=== PATIENT | female | born 1935 | race Two or more races ===

== ENCOUNTER 2018-02-01 20:40 | Observation (INO) | payer MEDICARE, OTHER ==
[2018-02-01 21:07] LABS: ABSOLUTE BASOPHILS # (AUTO) 0.1 10^3/uL (0.0-0.2); ABSOLUTE EOSINOPHILS # (AUTO) 0.3 10^3/uL (0.0-0.6); ABSOLUTE LYMPHOCYTES (AUTO) 1.4 10^3/uL (0.5-4.7); ABSOLUTE MONOCYTES (AUTO) 0.8 10^3/uL (0.1-1.4); ABSOLUTE NEUT (AUTO) 4.6 10^3/uL (1.7-8.2); BASOPHILS % (AUTO) 0.9 % (0-2); EOSINOPHILS % (AUTO) 3.6 % (0-6); HEMATOCRIT 37.2 % (36.0-47.0); HEMOGLOBIN 12.8 g/dL (12.0-15.5); LYMPHOCYTES % (AUTO) 19.4 % (13-45); MEAN CORPUSCULAR HEMOGLOBIN 31.8 pg (27.0-33.4); MEAN CORPUSCULAR HGB CONC 34.4 g/dL (32.0-36.0); MEAN CORPUSCULAR VOLUME 92 fl (80-97); MONOCYTES % (AUTO) 11.1 % (3-13); PLATELET COUNT 256 10^3/uL (150-450); RED BLOOD COUNT 4.03 10^6/uL (3.72-5.28); RED CELL DISTRIBUTION WIDTH 14.5 % (11.5-14.0); TOTAL CELLS COUNTED % (AUTO) 100 %; WHITE BLOOD COUNT 7.1 10^3/uL (4.0-10.5)
[2018-02-01 21:12] LABS: INTERNATIONAL RATION (INR) 0.98; PROTHROMBIN TIME 13.5 SEC (11.4-15.4)
--- NOTE | 2018-02-01 21:18 | RADIOLOGY REPORT (SQ) ---
EXAM DESCRIPTION: CHEST 2 VIEWS COMPLETED DATE/TIME: 02/01/2018 9:11 pm REASON FOR STUDY: ams COMPARISON: None. EXAM PARAMETERS: NUMBER OF VIEWS: two views TECHNIQUE: Digital Frontal and Lateral radiographic views of the chest acquired. RADIATION DOSE: NA LIMITATIONS: none FINDINGS: LUNGS AND PLEURA: No opacities, masses or pneumothorax. No pleural effusion. MEDIASTINUM AND HILAR STRUCTURES: No masses or contour abnormalities. HEART AND VASCULAR STRUCTURES: Heart normal size. No evidence for failure. BONES: No acute findings. HARDWARE: None in the chest. OTHER: No other significant finding. IMPRESSION: NO ACUTE RADIOGRAPHIC FINDING IN THE CHEST. TECHNICAL DOCUMENTATION: JOB ID: [id number] [employer]- All Rights Reserved Reading location - IP/workstation name: [email or web address]
--- NOTE | 2018-02-01 21:20 | RADIOLOGY REPORT (SQ) ---
EXAM DESCRIPTION: CT HEAD WITHOUT COMPLETED DATE/TIME: 02/01/2018 9:12 pm REASON FOR STUDY: ams COMPARISON: None. TECHNIQUE: Axial images acquired through the brain without intravenous contrast. Images reviewed wi th bone, brain and subdural windows. Additional sagittal and coronal reconstructions were generated. Images stored on PACS. All CT scanners at this facility use dose modulation, iterative reconstruction, and/or weight based d osing when appropriate to reduce radiation dose to as low as reasonably achievable (ALARA). [facility]: Dose Right [facility]: CareDose [facility]: Dose Right [facility]: Teradose 4D [facility]: Artwardly RADIATION DOSE: CT Rad equipment meets quality standard of care and radiation dose reduction techniq ues were employed. CTDIvol: 53.2 mGy. DLP: 884 mGy-cm. mGy. LIMITATIONS: None. FINDINGS: VENTRICLES: Normal size and contour. CEREBRUM: No masses. No hemorrhage. No midline shift. No evidence for acute infarction. Areas of l ow density in the white matter most likely chronic small vessel ischemic changes. CEREBELLUM: No masses. No hemorrhage. No alteration of density. No evidence for acute infarction. EXTRAAXIAL SPACES: No fluid collections. No masses. ORBITS AND GLOBE: No intra- or extraconal masses. Normal contour of globe without masses. CALVARIUM: No fracture. PARANASAL SINUSES: No fluid or mucosal thickening. SOFT TISSUES: No mass or hematoma. OTHER: No other significant finding. IMPRESSION: MILD CHRONIC MICROVASCULAR ISCHEMIA. NO ACUTE IMAGING FINDINGS IN THE BRAIN. EVIDENCE OF ACUTE STROKE: NO. COMMENT: Quality ID # [id number]: Final reports with documentation of one or more dose reduction techniques (e.g., Automated exposure control, adjustment of the mA and/or kV according to patient size, use of iterative reconstruction technique) TECHNICAL DOCUMENTATION: JOB ID: [id number] [employer]- All Rights Reserved Reading location - IP/workstation name: [email or web address]
[2018-02-01 21:21] LABS: VENOUS BLOOD BASE EXCESS -0.4 mmol/L; VENOUS BLOOD PCO2 43.8 mmHg (35-63); VENOUS BLOOD PH 7.38 (7.30-7.42)
[2018-02-01 21:24] LABS: ALANINE AMINOTRANSFERASE 13 U/L (9-52); ALBUMIN 4.6 g/dL (3.5-5.0); ALKALINE PHOSPHATASE 95 U/L (38-126); ANION GAP 16 (5-19); ASPARTATE AMINO TRANSFERASE 30 U/L (14-36); BILIRUBIN,DIRECT 0.4 mg/dL (0.0-0.4); BILIRUBIN,TOTAL 0.5 mg/dL (0.2-1.3); BLOOD UREA NITROGEN 37 mg/dL (7-20); CALCIUM 9.2 mg/dL (8.4-10.2); CARBON DIOXIDE 23 mmol/L (22-30); CHLORIDE 105 mmol/L (98-107); GLUCOSE 165 mg/dL (75-110); POTASSIUM 3.9 mmol/L (3.6-5.0); SODIUM 144.1 mmol/L (137-145); TOTAL PROTEIN 7.7 g/dL (6.3-8.2)
[2018-02-01 22:14] LABS: APPEARANCE,URINE CLEAR; BILIRUBIN,URINE NEGATIVE (NEGATIVE); COLOR,URINE STRAW; GLUCOSE, URINE NEGATIVE (NEGATIVE); KETONES,URINE NEGATIVE (NEGATIVE); LEUKOCYTE ESTERASE,URINE SMALL (NEGATIVE); NITRITE,URINE POSITIVE (NEGATIVE); PROTEIN,URINE NEGATIVE (NEGATIVE); URINE SPECIFIC GRAVITY 1.008; UROBILINOGEN,URINE NEGATIVE mg/dL (<2.0)
[2018-02-01] MEDS ORDERED: CEFTRIAXONE 1 GM/D5W RTU 1 GM/50 ML RTUPB IV ONE (22:21)
--- NOTE | 2018-02-01 22:34 | ER Document Report ---
ED General - General Chief Complaint: Altered Mental Status Stated Complaint: AMS Time Seen by Provider: 02/01/18 20:48 - HPI Patient complains to provider of: Altered mental status Notes: Patient coming in via EMS for altered mental status. no family is initially at bedside. Patient [facility] has underlying dementia concern for urinary tract infections patient has been aggressive with family members. Upon my evaluation patient is awake very delightful. Patient states it is 1959 patient states that she lives in [place] and in [facility]. Otherwise patient states she is concerned about her kids however states that her daughter may be stealing her medications and she wants to throw her daughter in longterm. Daughter later comes at bedside states that the patient has had a history of dementia patient is a DNR. Patient was initially transferred from her care facility in [place] to go to [facility] for the failure to take care of. States the patient has not slept in the last 48 hours and has become increasingly aggressive towards family members. States that the patient has been threatening to harm family members. States the patient normally become this way whenever she has a urinary tract infection is on chronic amoxicillin because of her chronic UTIs. Denies any fevers chills nausea vomiting diarrhea her last few days with the patient. - Related Data Allergies/Adverse Reactions: alginate dressing Allergy (Verified 02/01/18 22:34) allopurinol Allergy (Verified 02/01/18 22:34) Past Medical History - Social History Smoking Status: Unknown if Ever Smoked Family History: Reviewed & Not Pertinent Patient has suicidal ideation: No Patient has homicidal ideation: No - Past Medical History Cardiac Medical History: Reports: Hx Hypertension Renal/ Medical History: Denies: Hx Peritoneal Dialysis Past Surgical History: Reports: Hx Cardiac Surgery - stents, Hx Gynecologic Surgery - uterine prolapse, Hx Orthopedic Surgery - hip replacement Review of Systems - Review of Systems -: Yes ROS unobtainable due to patient's medical condition - Dementia Physical Exam - Vital signs Vitals: Temp 98.0 F 02/01/18 21:53 Interpretation: Normal - General General appearance: Appears well, Alert - HEENT Head: Normocephalic, Atraumatic Eyes: Normal Pupils: PERRL - Respiratory Respiratory status: No respiratory distress Chest status: Nontender Breath sounds: Normal Chest palpation: Normal - Cardiovascular Rhythm: Regular Heart sounds: Normal auscultation Murmur: No - Abdominal Inspection: Normal Distension: No distension Bowel sounds: Normal Tenderness: Nontender Organomegaly: No organomegaly - Back Back: Normal, Nontender - Extremities General upper extremity: Normal inspection, Nontender, Normal color, Normal ROM , Normal temperature General lower extremity: Normal inspection, Nontender, Normal color, Normal ROM , Normal temperature, Normal weight bearing. No: Jeff's sign - Neurological Neuro grossly intact: Yes Cognition: Normal [place] Coma Scale Eye Opening: Spontaneous [place] Coma Scale Verbal: Oriented Alexandra Coma Scale Motor: Obeys Commands Alexandra Coma Scale Total: 15 Speech: Normal Motor strength normal: LUE, RUE, LLE, RLE Sensory: Normal - Psychological Associated symptoms: Confused - Skin Skin Temperature: Warm Skin Moisture: Dry Skin Color: Normal Course - Re-evaluation Re-evalutation: 02/02/18 01:48 Laboratory studies so nitrate positive leukocyte esterase positive possible signs of a urinary tract infection possibly causing change in mental status that the family reports. Otherwise no other critical pathology. Patient was given a dose of Rocephin. Refer to the hospitalist for further evaluation and admission. This point and family members and the patient also can have exacerbation of her underlying dementia is that now she has a change in her environment which can cause change in patient's behavior. - Vital Signs Vital signs: Temp Pulse Resp BP Pulse Ox 98.0 F 02/01/18 21:53 - Laboratory Result Diagrams: 02/01/18 20:25 02/01/18 20:25 Laboratory results interpreted by me: 02/01/18 02/01/18 02/01/18 20:25 20:25 21:51 RDW 14.5 H BUN 37 H Est GFR (Non-Af Amer) 49 L Glucose 165 H Urine Nitrite POSITIVE H Ur Leukocyte Esterase SMALL H Urine Ascorbic Acid 20 H Discharge - Discharge Clinical Impression: Encephalopathy acute, DNR (do not resuscitate) UTI (urinary tract infection) Qualifiers: Urinary tract infection type: site unspecified Hematuria presence: without hematuria Qualified Code(s): N39.0 - Urinary tract infection, site not specified Dementia Qualifiers: Dementia type: unspecified type Dementia behavioral disturbance: without behavioral disturbance Qualified Code(s): F03.90 - Unspecified dementia without behavioral disturbance Condition: Good Admitting Provider: Hospitalist - [facility] Unit Admitted: Medical Floor
[2018-02-01] MEDS ORDERED: ACETAMINOPHEN 325 MG TABLET PO PRN (22:47)
[2018-02-01] MEDS ORDERED: MAG HYDROX/AL HYDROX/SIMETH SUSP 30 ML UDCUP PO PRN (22:47)
[2018-02-01] MEDS ORDERED: MAGNESIUM HYDROXIDE SUSP 30 ML UDCUP PO PRN (22:47)
[2018-02-01] MEDS ORDERED: CEFTRIAXONE INJ 1000 MG VIAL ONE (23:13)
[2018-02-01 23:17] LABS: URINE AMPHETAMINES SCREEN NEGATIVE; URINE BARBITURATES SCREEN NEGATIVE; URINE BENZODIAZEPINES SCREEN NEGATIVE; URINE COCAINE SCREEN NEGATIVE; URINE MARIJUANA (THC) SCREEN NEGATIVE; URINE METHADONE SCREEN NEGATIVE; URINE PHENCYCLIDINE SCREEN NEGATIVE
[2018-02-02] MEDS ORDERED: HALOPERIDOL LACTATE INJ 5 MG/1 ML VIAL IV ONE (01:18)
[2018-02-02 03:18] LABS: ABSOLUTE BASOPHILS # (AUTO) 0.1 10^3/uL (0.0-0.2); ABSOLUTE EOSINOPHILS # (AUTO) 0.2 10^3/uL (0.0-0.6); ABSOLUTE LYMPHOCYTES (AUTO) 1.2 10^3/uL (0.5-4.7); ABSOLUTE MONOCYTES (AUTO) 0.8 10^3/uL (0.1-1.4); ABSOLUTE NEUT (AUTO) 3.8 10^3/uL (1.7-8.2); BASOPHILS % (AUTO) 1.3 % (0-2); EOSINOPHILS % (AUTO) 3.4 % (0-6); HEMATOCRIT 34.8 % (36.0-47.0); LYMPHOCYTES % (AUTO) 20.1 % (13-45); MEAN CORPUSCULAR HEMOGLOBIN 31.7 pg (27.0-33.4); MEAN CORPUSCULAR HGB CONC 34.5 g/dL (32.0-36.0); MEAN CORPUSCULAR VOLUME 92 fl (80-97); MONOCYTES % (AUTO) 13.5 % (3-13); PLATELET COUNT 217 10^3/uL (150-450); RED BLOOD COUNT 3.78 10^6/uL (3.72-5.28); RED CELL DISTRIBUTION WIDTH 14.2 % (11.5-14.0); SEGMENTED NEUTROPHILS % (AUTO) 61.7 % (42-78); TOTAL CELLS COUNTED % (AUTO) 100 %; WHITE BLOOD COUNT 6.2 10^3/uL (4.0-10.5)
[2018-02-02 03:31] LABS: ANION GAP 12 (5-19); BLOOD UREA NITROGEN 32 mg/dL (7-20); CALCIUM 9.1 mg/dL (8.4-10.2); CARBON DIOXIDE 26 mmol/L (22-30); CHLORIDE 106 mmol/L (98-107); CREATINE KINASE 34 U/L (30-135); GLUCOSE 98 mg/dL (75-110); POTASSIUM 3.8 mmol/L (3.6-5.0); SODIUM 144.3 mmol/L (137-145)
[2018-02-02 03:43] LABS: CREATINE KINASE MB 0.81 ng/mL (<4.55); TROPONIN I 0.015 ng/mL
[2018-02-02] MEDS: NORMAL SALINE 1000 ML 1,000 ML IV SCH ×2 (03:57→09:24)
[2018-02-02] MEDS: RISPERIDONE 0.25 MG TABLET PO PRN ×2 (04:03→21:45)
--- NOTE | 2018-02-02 06:15 | PDOC H&P ---
History of Present Illness Admission Date/PCP: 02/01/18 23:11 FATMATA GREENFIELD Patient complains of: Agitation History of Present Illness: ERIK HERNANDEZ is a 83 year old female with history of advanced dementia and recurrent urinary tract infection on empiric amoxicillin. Patient was recently relocated from retirement in [place] to residential living with family. Over the past 48 hours the patient has become altered, agitated and aggressive towards family members. Patient denies any focal pain. She believes she lives in [place] and that her daughter is stealing her medications and should be jailed. In the emergency room her workup is largely unremarkable with a minimally suspicious urinalysis for urinary tract infection. She is referred to the hospitalist for admission. Past Medical History Cardiac Medical History: Reports: Hypertension Psychiatric Medical History: Reports: Dementia, Depression Past Surgical History Past Surgical History: Reports: Orthopedic Surgery - hip replacement Social History Information Source: Patient, Emergency Med Personnel, [facility] Records Lives with: Family Smoking Status: Former Smoker Frequency of Alcohol Use: Rare Hx Recreational Drug Use: No Drugs: None - Advance Directive Resuscitation Status: Do Not Resuscitate Family History Family History: Other - Unknown to the patient Parental Family History Reviewed: Yes - Unknown to the patient Children Family History Reviewed: Yes - Unknown to the patient Sibling(s) Family History Reviewed.: Yes - Unknown to the patient Medication/Allergy Home Medications: Amoxicillin [Amoxicillin] 500 mg 02/01/18 Aspirin [Aspirin 81 mg Chewable Tablet] 81 mg 02/01/18 Carvedilol [Coreg 12.5 mg Tablet] 02/01/18 Cholecalciferol (Vitamin D3) [Vitamin D3 2000 unit Tablet] 2,000 unit 02/01/18 Citalopram Hydrobromide [Celexa 10 mg Tablet] 10 mg PO 02/01/18 Cyanocobalamin (Vitamin B-12) [Vitamin B-12 1000 mcg Tablet] 1,000 mcg 02/01/18 Furosemide [Lasix 40 mg Tablet] 02/01/18 Lactobacillus Acidophilus [Acidophilus] 500 mm PO 02/01/18 Melatonin/Pyridoxine [Melatonin 5 mg Tablet] 5 mg 02/01/18 Memantine HCl [Namenda Xr] 28 mg PO 02/01/18 Rivastigmine Tartrate [Rivastigmine] 3 mg 02/01/18 Rosuvastatin Calcium [Crestor 20 mg Tablet] 20 mg PO 02/01/18 Vit A/Vit C/Vit E/Zinc/Copper [Preservision Areds Softgel] 1 cap 02/01/18 Allergies/Adverse Reactions: alginate dressing Allergy (Verified 02/01/18 22:34) allopurinol Allergy (Verified 02/01/18 22:34) Review of Systems ROS unobtainable: Due to mental status Physical Exam Vital Signs: Temp Pulse Resp BP Pulse Ox 97.5 F 70 20 145/58 H 98 02/02/18 03:49 02/02/18 03:49 02/02/18 03:49 02/02/18 03:49 02/02/18 03:49 Intake & Output 01/31/18 02/01/18 02/02/18 11:59 11:59 11:59 Weight 69 kg General appearance: PRESENT: disheveled, severe distress. ABSENT: cooperative, morbidly obese, obese Head exam: PRESENT: atraumatic, normocephalic Eye exam: PRESENT: conjunctiva pink, EOMI, PERRLA. ABSENT: scleral icterus Ear exam: PRESENT: normal external ear exam Mouth exam: PRESENT: moist, tongue midline Neck exam: ABSENT: carotid bruit, JVD, lymphadenopathy, thyromegaly Respiratory exam: PRESENT: clear to auscultation mayte. ABSENT: rales, rhonchi, wheezes Cardiovascular exam: PRESENT: RRR. ABSENT: diastolic murmur, rubs, systolic murmur Pulses: PRESENT: normal dorsalis pedis pul Vascular exam: PRESENT: normal capillary refill GI/Abdominal exam: PRESENT: normal bowel sounds, soft. ABSENT: distended, guarding, mass, organolmegaly, rebound, tenderness Rectal exam: PRESENT: deferred Extremities exam: PRESENT: full ROM. ABSENT: calf tenderness, clubbing, pedal edema Neurological exam: PRESENT: alert, altered, awake, oriented to person, CN II- XII grossly intact. ABSENT: oriented to place, oriented to time, oriented to situation Psychiatric exam: PRESENT: agitated, anxious Skin exam: PRESENT: dry, intact, warm. ABSENT: cyanosis, rash Results Laboratory Results: 02/02/18 03:09 02/02/18 03:09 02/02/18 02/02/18 03:09 03:09 WBC 6.2 RBC 3.78 Hgb 12.0 Hct 34.8 L MCV 92 MCH 31.7 MCHC 34.5 RDW 14.2 H Plt Count 217 Seg Neutrophils % 61.7 Lymphocytes % 20.1 Monocytes % 13.5 H Eosinophils % 3.4 Basophils % 1.3 Absolute Neutrophils 3.8 Absolute Lymphocytes 1.2 Absolute Monocytes 0.8 Absolute Eosinophils 0.2 Absolute Basophils 0.1 Sodium 144.3 Potassium 3.8 Chloride 106 Carbon Dioxide 26 Anion Gap 12 BUN 32 H Creatinine 0.81 Est GFR ( Amer) > 60 Est GFR (Non-Af Amer) > 60 Glucose 98 Calcium 9.1 02/02/18 02/02/18 03:09 03:09 Creatine Kinase 34 CK-MB (CK-2) 0.81 Troponin I 0.015 Impressions: Chest X-Ray 02/01/18 20:53 IMPRESSION: NO ACUTE RADIOGRAPHIC FINDING IN THE CHEST. Head CT 02/01/18 20:57 IMPRESSION: MILD CHRONIC MICROVASCULAR ISCHEMIA. NO ACUTE IMAGING FINDINGS IN THE BRAIN. EVIDENCE OF ACUTE STROKE: NO. Assessment & Plan - Diagnosis (1) Encephalopathy acute Is this a current diagnosis for this admission?: Yes Plan: Possibly secondary to urinary tract infection though likely just progressive decline of dementia with delirium. Supportive care (2) Dementia Qualifiers: Dementia type: unspecified type Dementia behavioral disturbance: without behavioral disturbance Qualified Code(s): F03.90 - Unspecified dementia without behavioral disturbance Is this a current diagnosis for this admission?: Yes Plan: Supportive care discharge planning for placement (3) UTI (urinary tract infection) Qualifiers: Urinary tract infection type: site unspecified Hematuria presence: without hematuria Qualified Code(s): N39.0 - Urinary tract infection, site not specified Is this a current diagnosis for this admission?: Yes Plan: Patient received Rocephin x1. No fever or leukocytosis, follow-up urine culture results prior to further antibiotics (4) DNR (do not resuscitate) Is this a current diagnosis for this admission?: Yes Plan: Supportive care - Time Time Spent: 30 to 50 Minutes - Inpatient Certification Medical Necessity: Need Close Monitoring Due to Risk of Patient Decompensation
[2018-02-02] MEDS: HEPARIN SOD (PORCINE) 5,000 UNIT/ML 1 ML SYRINGE SUBCUT SCH ×3 (07:00→21:45)
--- NOTE | 2018-02-02 07:36 | EKG REPORT ---
SEVERITY:- ABNORMAL ECG - SINUS RHYTHM LEFT BUNDLE BRANCH BLOCK : Confirmed by: Aaron Ernst MD 02-Feb-2018 07:35:54
[2018-02-02 09:36] LABS: CREATINE KINASE MB 0.56 ng/mL (<4.55)
[2018-02-02 09:40] LABS: TROPONIN I < 0.012 ng/mL
--- NOTE | 2018-02-02 11:05 | PDOC PROGRESS REPORT ---
Subjective Progress Note for:: 02/02/18 Subjective:: 83 years old female patient admitted last night for acute confusional state evidenced by agitation and combativeness and aggressiveness. This morning patient is resting in bed comfortably she is awake alert and conversant and pleasant. Patient is disoriented to time and place. Reason For Visit: ENCEPHALOPATHY DEMENTIA Physical Exam Vital Signs: Temp Pulse Resp BP Pulse Ox 97.5 F 70 20 145/58 H 98 02/02/18 03:49 02/02/18 03:49 02/02/18 03:49 02/02/18 03:49 02/02/18 03:49 Intake & Output 02/01/18 02/02/18 02/03/18 06:59 06:59 06:59 Intake Total 600 Balance 600 Weight 69 kg General appearance: PRESENT: no acute distress Head exam: PRESENT: atraumatic Eye exam: PRESENT: conjunctiva pink, EOMI, PERRLA. ABSENT: scleral icterus Neck exam: ABSENT: carotid bruit, JVD, lymphadenopathy, thyromegaly Respiratory exam: PRESENT: clear to auscultation mayte. ABSENT: rales, rhonchi, wheezes Cardiovascular exam: PRESENT: RRR. ABSENT: diastolic murmur, rubs, systolic murmur GI/Abdominal exam: PRESENT: normal bowel sounds, soft. ABSENT: distended, guarding, mass, organolmegaly, rebound, tenderness Neurological exam: PRESENT: alert, awake Results Laboratory Results: 02/02/18 03:09 02/02/18 03:09 02/02/18 02/02/18 03:09 03:09 WBC 6.2 RBC 3.78 Hgb 12.0 Hct 34.8 L MCV 92 MCH 31.7 MCHC 34.5 RDW 14.2 H Plt Count 217 Seg Neutrophils % 61.7 Lymphocytes % 20.1 Monocytes % 13.5 H Eosinophils % 3.4 Basophils % 1.3 Absolute Neutrophils 3.8 Absolute Lymphocytes 1.2 Absolute Monocytes 0.8 Absolute Eosinophils 0.2 Absolute Basophils 0.1 Sodium 144.3 Potassium 3.8 Chloride 106 Carbon Dioxide 26 Anion Gap 12 BUN 32 H Creatinine 0.81 Est GFR ( Amer) > 60 Est GFR (Non-Af Amer) > 60 Glucose 98 Calcium 9.1 07/05/18 07/05/18 07/05/18 03:09 03:09 08:56 Creatine Kinase 34 21 L CK-MB (CK-2) 0.81 Troponin I 0.015 02/02/18 08:56 Creatine Kinase CK-MB (CK-2) 0.56 Troponin I < 0.012 Impressions: Chest X-Ray 02/01/18 20:53 IMPRESSION: NO ACUTE RADIOGRAPHIC FINDING IN THE CHEST. Head CT 02/01/18 20:57 IMPRESSION: MILD CHRONIC MICROVASCULAR ISCHEMIA. NO ACUTE IMAGING FINDINGS IN THE BRAIN. EVIDENCE OF ACUTE STROKE: NO. Assessment & Plan - Diagnosis (1) Altered mental status Qualifiers: Altered mental status type: disorientation Qualified Code(s): R41.0 - Disorientation, unspecified Is this a current diagnosis for this admission?: Yes Plan: Since patient has underlying dementia is made to be the natural course of her illness. (2) Dementia Qualifiers: Dementia type: unspecified type Dementia behavioral disturbance: without behavioral disturbance Qualified Code(s): F03.90 - Unspecified dementia without behavioral disturbance Is this a current diagnosis for this admission?: Yes Plan: Stable. (3) Hypertension Qualifiers: Hypertension type: essential hypertension Qualified Code(s): I10 - Essential (primary) hypertension Is this a current diagnosis for this admission?: Yes Plan: Continue her home medication
[2018-02-02] MEDS: DOCUSATE SODIUM 100 MG CAPSULE PO SCH ×2 (15:41→15:46)
[2018-02-02 16:19] LABS: CREATINE KINASE MB 0.69 ng/mL (<4.55)
[2018-02-02 16:20] LABS: TROPONIN I < 0.012 ng/mL
[2018-02-02] MEDS ORDERED: MELATONIN 3 MG TABLET PO ONE (22:45)
[2018-02-02] MEDS ORDERED: MELATONIN 5 MG TABLET PO ONE (22:45)
[2018-02-02] MEDS ORDERED: LORAZEPAM INJ 2 MG/1 ML VIAL IV ONE (23:30)
[2018-02-03] MEDS: HEPARIN SOD (PORCINE) 5,000 UNIT/ML 1 ML SYRINGE SUBCUT SCH (05:49)
--- NOTE | 2018-02-03 09:25 | PDOC DISCHARGE SUMMARY ---
General - Admit/Disc Date/PCP Admission Date/Primary Care Provider: 02/01/18 23:11 FATMATA Felix GREENFIELD Discharge Date: 02/03/18 - Discharge Diagnosis (1) Altered mental status Is this a current diagnosis for this admission?: Yes (2) Dementia Is this a current diagnosis for this admission?: Yes (3) Hypertension Is this a current diagnosis for this admission?: Yes - Additional Information Resuscitation Status: Do Not Resuscitate Discharge Activity: Balance Activity w/Rest Prescriptions: Levofloxacin [Levaquin 500 mg Tablet] 500 mg PO DAILY #7 tablet Home Medications: Aspirin [Aspirin 81 mg Chewable Tablet] 81 mg PO DAILY 02/02/18 Carvedilol [Coreg 12.5 mg Tablet] 12.5 mg PO Q12 02/02/18 Cholecalciferol (Vitamin D3) [Vitamin D3 1000 Unit Tablet] 2,000 unit PO DAILY 02/02/18 Citalopram Hydrobromide [Celexa 10 mg Tablet] 10 mg PO DAILY 02/02/18 Cyanocobalamin (Vitamin B-12) [Vitamin B-12 1000 mcg Tablet] 1,000 mcg PO DAILY 02/02/18 Fluticasone Propionate [Flonase Nasal [place] 50 Mcg/[place] 16 gm] 1 spray NAREB DAILY 02/02/18 Furosemide [Lasix 40 mg Tablet] 40 mg PO QAM 02/02/18 Lactobacillus Acidophilus [Acidophilus] 1 tab PO DAILY 02/02/18 Melatonin [Melatonin 5 mg Tablet] 5 mg PO QHS 02/02/18 Memantine HCl [Memantine HCl ER] 28 mg PO DAILY 02/02/18 Methyl Salicylate/Menthol [Salonpas Patch] 1 each TP PRN PRN 02/02/18 Rivastigmine Tartrate [Rivastigmine] 3 mg PO Q12 02/02/18 Rosuvastatin Calcium [Crestor 20 mg Tablet] 20 mg PO QHS 02/02/18 Vit A/Vit C/Vit E/Zinc/Copper [Preservision Areds Softgel] 1 each PO Q12 Levofloxacin [Levaquin 500 mg Tablet] 500 mg PO DAILY #7 tablet 02/03/18 History of Present Illness History of Present Illness: ERIK HERNANDEZ is a 83 year old female with history of advanced dementia and recurrent urinary tract infection on empiric amoxicillin. Patient was recently relocated from half-way in [place] to residential living with family. Over the past 48 hours the patient has become altered, agitated and aggressive towards family members. Patient denies any focal pain. She believes she lives in [place] and that her daughter is stealing her medications and should be jailed. In the emergency room her workup is largely unremarkable with a minimally suspicious urinalysis for urinary tract infection. She is referred to the hospitalist for admission. Hospital Course Hospital Course: This is a 83 years old female patient with history of advanced Alzheimer dementia brought from home by her daughters for confusion. Reportedly patient is aggressive toward her family and she is also delusional. He is hostile patient is awake alert and she is very pleasant and no agitation or aggressiveness. Her urine analysis is positive for leukocyte esterase white cells and nitrates. She has long-standing history of recurrent urinary tract infection. This morning I seen her while she sitting up in bed and enjoying her breakfast. She is not in pain or any form of distress she is awake alert vital signs are stable. I will discharge her home with Levaquin 500 mg p.o. daily for 7 days. Physical Exam Vital Signs: Temp Pulse Resp BP Pulse Ox 98.3 F 76 20 121/41 L 95 02/03/18 08:20 02/03/18 08:20 02/03/18 08:20 02/03/18 08:20 02/03/18 08:20 Intake & Output 02/02/18 02/03/18 02/04/18 06:59 06:59 06:59 Intake Total 600 697 Balance 600 697 Weight 69 kg 66.769 kg General appearance: PRESENT: no acute distress Eye exam: PRESENT: conjunctiva pink Mouth exam: PRESENT: moist Respiratory exam: PRESENT: clear to auscultation mayte. ABSENT: rales, rhonchi, wheezes Cardiovascular exam: PRESENT: RRR. ABSENT: diastolic murmur, rubs, systolic murmur GI/Abdominal exam: PRESENT: normal bowel sounds, soft. ABSENT: distended, guarding, mass, organolmegaly, rebound, tenderness Neurological exam: PRESENT: alert, awake Psychiatric exam: PRESENT: normal mood Results Laboratory Results: 02/02/18 03:09 02/02/18 03:09 02/02/18 02/02/18 02/02/18 03:09 03:09 08:56 Creatine Kinase 34 21 L CK-MB (CK-2) 0.81 Troponin I 0.015 02/02/18 02/02/18 02/02/18 08:56 15:45 15:45 Creatine Kinase 32 CK-MB (CK-2) 0.56 0.69 Troponin I < 0.012 < 0.012 Impressions: Chest X-Ray 02/01/18 20:53 IMPRESSION: NO ACUTE RADIOGRAPHIC FINDING IN THE CHEST. Head CT 02/01/18 20:57 IMPRESSION: MILD CHRONIC MICROVASCULAR ISCHEMIA. NO ACUTE IMAGING FINDINGS IN THE BRAIN. EVIDENCE OF ACUTE STROKE: NO. Qualifiers - * PATIENT BEING DISCHARGED WITH ANY OF THE FOLLOWING DIAGNOSIS: No
[2018-02-03 10:14] VITALS: BP 141/60
[2018-02-03] MEDS: DOCUSATE SODIUM 100 MG CAPSULE PO SCH (12:55)
[2018-02-03] MEDS ORDERED: MELATONIN 5 MG TABLET PO SCH (22:00)
[2018-02-03] MEDS ORDERED: MELATONIN 3 MG TABLET PO SCH (22:00)
== END 2018-02-03 13:06 | disposition home or self-care (01) ==
LOC: ER 20:40 → EH 23:11 → 3W 02-02 01:55 → 5 02-02 15:26
PROVIDERS: ADMIT Internal Medicine; ATTEND Internal Medicine
DX: G93.40 Encephalopathy, unspecified (principal); N39.0 Urinary tract infection, site not specified; F03.90 Unspecified dementia, unspecified severity, without behavioral disturbance, psychotic disturbance, mood disturbance, and anxiety; Z66 Do not resuscitate; Z87.891 Personal history of nicotine dependence
CPT/HCPCS: 93005; 99285; 96375; 96365; 36415 ×2; 87040; 87086; 82553; 82550; 84443; 85025 ×2; 85610; 87088; 80048; 80053; 81001; 84484 ×2; 87186; 80307; 82803; 83605; 71046; 70450; 93010; G0378 ×3; J1644 ×2; J1630; J2060; J0696; A9270; J7030; J3490

== ENCOUNTER 2018-06-27 11:55 | Emergency (ER) | payer MEDICARE, OTHER ==
--- NOTE | 2018-06-27 13:16 | RADIOLOGY REPORT (SQ) ---
EXAM DESCRIPTION: CT HEAD WITHOUT COMPLETED DATE/TIME: 06/27/2018 12:46 pm REASON FOR STUDY: bed2 fall hit head per l toro COMPARISON: 02/01/2018 TECHNIQUE: Axial images acquired through the brain without intravenous contrast. Images reviewed wi th bone, brain and subdural windows. Additional sagittal and coronal reconstructions were generated. Images stored on PACS. All CT scanners at this facility use dose modulation, iterative reconstruction, and/or weight based d osing when appropriate to reduce radiation dose to as low as reasonably achievable (ALARA). [facility]: Dose Right [facility]: CareDose [facility]: Dose Right [facility]: Teradose 4D [facility]: Smart [employer] ([employer] / [employer]) RADIATION DOSE: CT Rad equipment meets quality standard of care and radiation dose reduction techniq ues were employed. CTDIvol: 53.2 mGy. DLP: 964 mGy-cm. mGy. LIMITATIONS: None. FINDINGS: VENTRICLES: Prominent ventricles secondary to involutional atrophy. CEREBRUM: No masses. No hemorrhage. No midline shift. No evidence for acute infarction. Areas of l ow density in the white matter most likely chronic small vessel ischemic changes. CEREBELLUM: No masses. No hemorrhage. No alteration of density. No evidence for acute infarction. EXTRAAXIAL SPACES: No fluid collections. No masses. ORBITS AND GLOBE: No intra- or extraconal masses. Normal contour of globe without masses. CALVARIUM: No fracture. PARANASAL SINUSES: No fluid or mucosal thickening. SOFT TISSUES: No mass or hematoma. OTHER: No other significant finding. IMPRESSION: MILD CHRONIC MICROVASCULAR ISCHEMIA. NO ACUTE IMAGING FINDINGS IN THE BRAIN. EVIDENCE OF ACUTE STROKE: NO. COMMENT: Quality ID # [id number]: Final reports with documentation of one or more dose reduction techniques (e.g., Automated exposure control, adjustment of the mA and/or kV according to patient size, use of iterative reconstruction technique) TECHNICAL DOCUMENTATION: JOB ID: [id number] [employer]- All Rights Reserved Reading location - IP/workstation name: [email or web address]
[2018-06-27] MEDS ORDERED: ACETAMINOPHEN 325 MG TABLET PO ONE (13:20)
--- NOTE | 2018-06-27 13:20 | RADIOLOGY REPORT (SQ) ---
EXAM DESCRIPTION: CT CERVICAL SPINE WITHOUT COMPLETED DATE/TIME: 06/27/2018 12:46 pm REASON FOR STUDY: bed2 fall hit head per l toro COMPARISON: None. TECHNIQUE: Axial images acquired through the cervical spine without intravenous contrast. Images re viewed with lung, soft tissue and bone windows. Reconstructed coronal and sagittal MPR images review ed. Images stored on PACS. All CT scanners at this facility use dose modulation, iterative reconstruction, and/or weight based d osing when appropriate to reduce radiation dose to as low as reasonably achievable (ALARA). [facility]: Dose Right [facility]: CareDose [facility]: Dose Right [facility]: Teradose 4D [facility]: [employer] RADIATION DOSE: CT Rad equipment meets quality standard of care and radiation dose reduction techniq ues were employed. CTDIvol: 19.2 mGy. DLP: 367 mGy-cm. mGy. LIMITATIONS: None. FINDINGS: ALIGNMENT: Anatomic. MINERALIZATION: Normal. VERTEBRAL BODIES: No fractures or dislocation. DISCS: Disc spaces narrowed from C3-C7. Anterior and posterior osteophytes. FACETS, LATERAL MASSES, POSTERIOR ELEMENTS: Hypertrophic facet changes at multiple levels, left more than right. HARDWARE: None in the spine. VISUALIZED RIBS: No fractures. LUNG APICES AND SOFT TISSUES: No significant or acute findings. OTHER: No other significant finding. IMPRESSION: Degenerative disc disease, spondylosis, and facet arthropathy. No acute findings. TECHNICAL DOCUMENTATION: JOB ID: [id number] Quality ID # [id number]: Final reports with documentation of one or more dose reduction techniques (e.g., Au tomated exposure control, adjustment of the mA and/or kV according to patient size, use of iterative reconstruction technique) 2010 [employer]- All Rights Reserved Reading location - IP/workstation name: [email or web address]
[2018-06-27 14:07] LABS: APPEARANCE,URINE SLIGHTLY-CLOUDY; BILIRUBIN,URINE NEGATIVE (NEGATIVE); COLOR,URINE YELLOW; GLUCOSE, URINE NEGATIVE (NEGATIVE); KETONES,URINE NEGATIVE (NEGATIVE); LEUKOCYTE ESTERASE,URINE SMALL (NEGATIVE); NITRITE,URINE POSITIVE (NEGATIVE); PROTEIN,URINE NEGATIVE (NEGATIVE); URINE SPECIFIC GRAVITY 1.012; UROBILINOGEN,URINE NEGATIVE mg/dL (<2.0)
[2018-06-27] MEDS ORDERED: LIDOCAINE 4%/TETRACAINE 0.5%/EPI 0.18% 5 ML TOPICAL SOLN TOP ONE (14:31)
[2018-06-27] MEDS ORDERED: NITROFURANTOIN MONOHYD/M-CRYST 100 MG CAPSULE PO ONE (14:34)
--- NOTE | 2018-06-27 15:45 | ER Document Report ---
ED Fall - General Chief Complaint: Fall Stated Complaint: FALL Time Seen by Provider: 06/27/18 12:14 Mode of Arrival: Medic Information source: Patient, Relative Notes: Patient is an 83-year-old female who presents with chief complaint of fall and head injury. Patient's daughter reports that patient was attempting to escape out of the house when she tripped and fell backwards. Patient's daughter states that patient has dementia. She also reports the patient did not lose any consciousness or had any episodes of vomiting. TRAVEL OUTSIDE OF THE [place] IN LAST 30 DAYS: No - Related data Allergies/Adverse Reactions: alginate dressing Allergy (Verified 02/01/18 22:34) allopurinol Allergy (Verified 02/01/18 22:34) Past Medical History - General Information source: Relative - Daughter - Social History Smoking Status: Never Smoker Frequency of alcohol use: None Drug Abuse: None Lives with: Family Family History: Other - Unknown to the patient Patient has suicidal ideation: No Patient has homicidal ideation: No - Past Medical History Cardiac Medical History: Reports: Hx Hypertension Renal/ Medical History: Denies: Hx Peritoneal Dialysis Musculoskeletal Medical History: 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 Psychiatric Medical History: Reports: Hx Dementia, Hx Depression Past Surgical History: Reports: Hx Cardiac Surgery - stent, Hx Gynecologic Surgery - uterine prolapse, Hx Orthopedic Surgery - hip replacement - Immunizations Hx Diphtheria, Pertussis, Tetanus Vaccination: Yes Review of Systems - Review of Systems Musculoskeletal: See HPI -: Yes All other systems reviewed and negative Physical Exam - Vital signs Vitals: Resp BP Pulse Ox 29 H 138/99 H 98 06/27/18 12:02 06/27/18 12:02 06/27/18 12:02 - Notes Notes: PHYSICAL EXAMINATION: GENERAL: Well-appearing, well-nourished and in no acute distress. HEAD: Hematoma with laceration noted to back of head. No bleeding at this time. EYES: Pupils equal round and reactive to light, extraocular movements intact, conjunctiva are normal. ENT: Nares patent, oropharynx clear without exudates. Moist mucous membranes. NECK: Normal range of motion, supple without lymphadenopathy LUNGS: Breath sounds clear to auscultation bilaterally and equal. No wheezes rales or rhonchi. HEART: Regular rate and rhythm without murmurs ABDOMEN: Soft, nontender, nondistended abdomen. No guarding, no rebound. No masses appreciated. Female : No CVA tenderness. Musculoskeletal: Normal range of motion, no pitting or edema. No cyanosis. Pelvis stable. NEUROLOGICAL: Cranial nerves grossly intact. Normal speech, normal gait. Normal sensory, motor exams PSYCH: Normal mood, normal affect. SKIN: Warm, Dry, normal turgor, no rashes or lesions noted. Course - Re-evaluation Re-evalutation: CT of the cervical spine and head are unremarkable with no acute findings. Daughter is at bedside states that she believes her mother has a urinary tract infection as she just had a urine and urine culture done yesterday at the physician's office however she states she missed a phone call from them so did not get the official results. Urinalysis showed positive nitrites and leukocyte esterase. Patient's laceration will be repaired using kindra, see procedure note. Patient will be placed on antibiotics and discharged home in stable condition. - Vital Signs Vital signs: Temp Pulse Resp BP Pulse Ox 98.4 F 19 142/72 H 98 06/27/18 16:18 06/27/18 16:17 06/27/18 16:17 06/27/18 16:17 - Laboratory Laboratory results interpreted by me: 06/27/18 13:35 Urine Nitrite POSITIVE H Ur Leukocyte Esterase SMALL H Urine Ascorbic Acid 40 H Procedures - Laceration/Wound Repair Head/scalp Wound length (cm): 3 Wound's Depth, Shape: Irregular Anesthetic type: Other - L.E.T. Wound Repaired With: Dighton - 5 kindra placed Complications: No Adult Head Front/Back picture: 1 - 3cm Laceration Discharge - Discharge Clinical Impression: Laceration Urinary tract infection Qualifiers: Urinary tract infection type: acute cystitis Hematuria presence: without hematuria Qualified Code(s): N30.00 - Acute cystitis without hematuria Head injury Qualifiers: Encounter type: initial encounter Qualified Code(s): S09.90XA - Unspecified injury of head, initial encounter Condition: Stable Disposition: HOME, SELF-CARE Additional Instructions: URINARY TRACT INFECTION: Your evaluation indicates that you have a urinary tract infection. This is due to germs growing in the bladder. This is a common problem. This infection usually responds quickly to antibiotics. Your antibiotic should be taken exactly as prescribed. Drink plenty of fluids -- three to four quarts a day. Occasionally, a bladder anesthetic will be prescribed to help stop the feeling of urgency until the antibiotic has a chance to clear the infection. This may cause your urine to be dark orange. Certain urine infections require a culture. If the doctor obtained a culture, the results will be back in two days. You should call to see if a change in treatment is needed. A repeat urinalysis after you finish treatment is often recommended. The physician will let you know if further testing is required. Call the doctor if you develop fever, chills, flank pain, inability to urinate, or blood in the urine. ANTIBIOTIC THERAPY: You have been given an antibiotic prescription. It's important that you take all the medication, unless instructed otherwise by your physician. Failure to complete the entire course can result in relapse of your condition. Common side effects of antibiotics include nausea, intestinal cramping, or diarrhea. Women may develop vaginal yeast infections, and babies can get yeast (thrush) in the mouth following the use of antibiotics. Contact your physician if you develop significant side effects from this medication. Allergy to this antibiotic can result in hives, wheezing, faintness, or itching. If symptoms of allergy occur, stop the medication and call the doctor. NITROFURANTOIN (MACRODANTIN, MACROBID): You have received a prescription for nitrofurantoin (Macrodantin). This antibiotic is used for urinary tract infections. Women who are or nursing should notify the physician before taking this medicine. If you have ever had a problem caused by this medication in the past, be sure the physician is aware of it. Common side effects of this medicine include nausea, vomiting, or decreased appetite. Notify your physician if these side effects become severe. Immediately stop this medicine and call the physician if you develop cough , shortness of breath, chest pain, weakness, jaundice (yellow color of the skin and whites of the eyes), or a skin rash. Head Injury Precautions At this point, there is no evidence that your head injury is serious. Observation is necessary, however. Take only clear liquids for the first few hours, unless told otherwise by the doctor. If no pain medication was prescribed, you may take acetaminophen according to the directions on the bottle. Do not take any medication that may alter your level of alertness (unless you've discussed it with the doctor first) . Limit activity for the first 24 hours. Bed rest is best. During the first 24 hours, check to see approximately every two to three hours that the patient is easily arousable, responds normally, and can perform common tasks such as walking without difficulty. Contact your doctor or go to the hospital if any of the following things occur: Persistent vomiting, difficulty in arousing the patient, worsening or continued headache, or failure to improve as expected. Head injuries can cause symptoms that persist for a few days or even a few weeks. Concussion You have suffered a concussion -- a temporary loss of certain brain functions due to a mild brain injury. The recovery is usually rapid and complete. The temporary problems occurring with a concussion can include loss of consciousness, dizziness, nausea, vomiting, and confusion. Repeat concussions can cause brain damage. In the future, avoid activities that will cause a blow to your head. Wear a helmet for sports such as snowboarding, biking, or skating. It's important that someone be with you for the first 24 hours. During this time, do not exercise or drive a vehicle. Do not take any pain medication stronger than acetaminophen unless prescribed by the physician. Any significant changes should be reported immediately to the physician. Signs of a problem may include: (1) Mental confusion (2) Incoordination or staggering (3) Repeated or forceful vomiting (4) Clear or bloody drainage from ear, mouth, or nose (5) Severe headache, not relieved by acetaminophen or prescribed pain medication (6) Failure to improve in 24 hours FOLLOW-UP CARE: If you have been referred to a physician for follow-up care, call the physician s office for an appointment as you were instructed or within the next two days. If you experience worsening or a significant change in your symptoms, notify the physician immediately or return to the Emergency Department at any time for re-evaluation. Please see her primary care provider in the next 5-7 days for staple removal. Take the antibiotics as prescribed for her urinary tract infection. A urine culture is pending. If there are any abnormalities that someone will call you. Prescriptions: Cephalexin [Cephalexin 500 MG Tablet] 500 mg PO BID #14 tablet Nitrofurantoin Macrocrystal [Macrodantin] 100 mg PO BID #14 capsule Referrals: FATMATA GREENFIELD MD [Primary Care Provider] - Follow up as needed
[2018-06-27 16:19] VITALS: BP 142/72
== END 2018-06-27 16:29 | disposition home or self-care (01) ==
LOC: ER 11:55
DX: S01.01XA Laceration without foreign body of scalp, initial encounter (principal); S09.90XA Unspecified injury of head, initial encounter; N30.00 Acute cystitis without hematuria; W18.30XA Fall on same level, unspecified, initial encounter; Y92.009 Unspecified place in unspecified non-institutional (private) residence as the place of occurrence of the external cause; F03.90 Unspecified dementia, unspecified severity, without behavioral disturbance, psychotic disturbance, mood disturbance, and anxiety; I10 Essential (primary) hypertension; Z96.649 Presence of unspecified artificial hip joint
CPT/HCPCS: 99284; 81001; 70450; 72125; 12002; A9270 ×2; J3490; J8499

== ENCOUNTER 2018-07-10 12:30 | Emergency (ER) | payer MEDICARE, OTHER ==
[2018-07-10 12:35] VITALS: BP 115/49
--- NOTE | 2018-07-10 13:10 | ER Document Report ---
HPI - HPI Time Seen by Provider: 07/10/18 12:52 Pain Level: Denies Notes: Patient is an 83-year-old female who presents with request for staple removal. Patient has 5 kindra to the back of her head that were placed by myself approximately 10 days ago. Patient has no other complaints today. Patient accompanied by her daughter who is her primary cotton factor. - CONSTITUTIONAL Constitutional: DENIES: Fever, Chills - EENT EENT: DENIES: Sore Throat, Ear Pain, Eye problems - NEURO Neurology: DENIES: Headache, Weakness, Vision blurred, Dizzinesss / Vertigo - CARDIOVASCULAR Cardiovascular: DENIES: Chest pain - RESPIRATORY Respiratory: DENIES: Trouble Breathing, Coughing - GASTROINTESTINAL Gastrointestinal: DENIES: Abdominal Pain, Black / Bloody Stools - URINARY Urinary: DENIES: Dysuria, Urgency, Frequency - MUSCULOSKELETAL Musculoskeletal: DENIES: Extremity pain Past Medical History - General Information source: Relative - Social History Smoking Status: Never Smoker Chew tobacco use (# tins/day): No Frequency of alcohol use: None Drug Abuse: None Family History: Other - Unknown to the patient Patient has suicidal ideation: No Patient has homicidal ideation: No - Past Medical History Cardiac Medical History: Reports: Hx Hypertension Renal/ Medical History: Denies: Hx Peritoneal Dialysis Musculoskeletal Medical History: 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 HEAD: Atraumatic, normocephalic. EYES: Pupils equal round extraocular movements intact, conjunctiva are normal. ENT: Nares patent NECK: Normal range of motion LUNGS: No respiratory distress Musculoskeletal: Normal range of motion NEUROLOGICAL: Normal speech, normal gait. PSYCH: Normal mood, normal affect. SKIN: Warm, Dry, normal turgor, no rashes or lesions noted. 5 kindra noted to back of patient's head, the laceration is completely healed and without erythema or drainage. - INFECTION CONTROL TRAVEL OUTSIDE OF THE [place] IN LAST 30 DAYS: No Course - Re-evaluation Re-evalutation: Kindra removed without difficulty. Patient discharged home in stable condition. - Vital Signs Vital signs: Temp Pulse Resp BP Pulse Ox 98.5 F 78 16 115/49 L 94 07/10/18 12:32 07/10/18 12:32 07/10/18 12:32 07/10/18 12:32 07/10/18 12:32 Discharge - Discharge Clinical Impression: Removal of staple Condition: Stable Disposition: HOME, SELF-CARE Additional Instructions: You were seen today to have your kindra removed from your head. Please continue to use a mild soap over the next week. Then you may resume using her head and shoulders antidandruff soap. Take Tylenol for any pain or discomfort. Keep all follow-ups with primary care. Referrals: FATMATA GREENFIELD MD [Primary Care Provider] - Follow up as needed
== END 2018-07-10 13:21 | disposition home or self-care (01) ==
LOC: ER 12:30
DX: S01.01XD Laceration without foreign body of scalp, subsequent encounter (principal); X58.XXXD Exposure to other specified factors, subsequent encounter

== ENCOUNTER 2018-12-18 12:29 | Emergency (ER) | payer MEDICARE, OTHER ==
[2018-12-18 12:48] VITALS: BP 132/59
--- NOTE | 2018-12-18 14:13 | ER Document Report ---
ED Medical Screen (RME) - General Chief Complaint: Fall Stated Complaint: FALL/ARM PAIN Time Seen by Provider: 12/18/18 14:02 Primary Care Provider: FATMATA GREENFIELD MD [Primary Care Provider] - Follow up as needed Mode of Arrival: Ambulatory Information source: Patient TRAVEL OUTSIDE OF THE [place] IN LAST 30 DAYS: No - HPI Patient complains to provider of: FALL Notes: 12/18/18 14:11 Patient here with daughter. Patient has a history of Alzheimer's. Patient was recently diagnosed with urinary tract infection is currently taking antibiotics. She had a fall injuring her left upper arm and left chest wall. She may have hit her head as well. No loss of consciousness. Her daughter is concerned that she fell either due to having the urinary tract infection or the fact that they recently changed her medications. She is not on blood thinning medications. Exam No distress, nontoxic-appearing. Tenderness to palpation with bruising to the left humerus. Left lateral and anterior chest wall tenderness to palpation with possible crepitus. No ecchymosis. No abdominal tenderness on limited triage abdominal exam. Plan CBC, CMP, urinalysis, EKG, CT head, CT cervical spine, chest x-ray with ribs, left humerus x-ray. Tylenol for pain. An initial examination was made on the patient as part of the triage process, and it was determined a more comprehensive evaluation was necessary. Initial labs were ordered and patient was transferred to another provider in the ED who assumed care and finished evaluation and plan. 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 Psychiatric Medical History: Reports: Hx Dementia, Hx Depression Past Surgical History: Reports: Hx Cardiac Surgery - stent, Hx Gynecologic Surgery - uterine prolapse, Hx Orthopedic Surgery - hip replacement - Immunizations Hx Diphtheria, Pertussis, Tetanus Vaccination: Yes Physical Exam - Vital signs Vitals: Temp Pulse Resp BP Pulse Ox 98.0 F 73 16 132/59 H 95 12/18/18 12:47 05/20/19 12:47 12/18/18 12:47 12/18/18 12:47 12/18/18 12:47 Course - Vital Signs Vital signs: Temp Pulse Resp BP Pulse Ox 98.0 F 73 16 132/59 H 95 12/18/18 12:47 12/18/18 12:47 12/18/18 12:47 12/18/18 12:47 12/18/18 12:47 Doctor's Discharge - Discharge Referrals: FATMATA GREENFIELD MD [Primary Care Provider] - Follow up as needed
--- NOTE | 2018-12-18 15:10 | RADIOLOGY REPORT (SQ) ---
EXAM DESCRIPTION: CT CERVICAL SPINE WITHOUT COMPLETED DATE/TIME: 12/18/2018 2:53 pm REASON FOR STUDY: FALL, INJURY COMPARISON: 06/27/2018 TECHNIQUE: Axial images acquired through the cervical spine without intravenous contrast. Images re viewed with lung, soft tissue and bone windows. Reconstructed coronal and sagittal MPR images review ed. Images stored on PACS. All CT scanners at this facility use dose modulation, iterative reconstruction, and/or weight based d osing when appropriate to reduce radiation dose to as low as reasonably achievable (ALARA). [facility]: Dose Right [facility]: CareDose [facility]: Dose Right [facility]: Teradose 4D [facility]: [email or web address] RADIATION DOSE: CT Rad equipment meets quality standard of care and radiation dose reduction techniq ues were employed. CTDIvol: 18.8 mGy. DLP: 783 mGy-cm. mGy. LIMITATIONS: None. FINDINGS: ALIGNMENT: Grade 1 anterolisthesis of C2 on C3. MINERALIZATION: Normal. VERTEBRAL BODIES: No fractures. A cyst is present in the odontoid. Stable. DISCS: Disc spaces are narrowed throughout the cervical spine. Small marginal osteophytes are presen t. FACETS, LATERAL MASSES, POSTERIOR ELEMENTS: Hypertrophic facet changes at multiple levels. HARDWARE: None in the spine. VISUALIZED RIBS: No fractures. LUNG APICES AND SOFT TISSUES: No significant or acute findings. OTHER: No other significant finding. IMPRESSION: Anterolisthesis of C2 on C3. Multilevel degenerative disc disease, spondylosis, and fac et arthropathy. No acute findings. TECHNICAL DOCUMENTATION: JOB ID: [id number] Quality ID # [id number]: Final reports with documentation of one or more dose reduction techniques (e.g., Au tomated exposure control, adjustment of the mA and/or kV according to patient size, use of iterative reconstruction technique) 2010 [employer]- All Rights Reserved Reading location - IP/workstation name: [email or web address]
--- NOTE | 2018-12-18 15:10 | RADIOLOGY REPORT (SQ) ---
EXAM DESCRIPTION: CT HEAD WITHOUT COMPLETED DATE/TIME: 12/18/2018 2:53 pm REASON FOR STUDY: FALL, INJURY COMPARISON: None. TECHNIQUE: Axial images acquired through the brain without intravenous contrast. Images reviewed wi th bone, brain and subdural windows. Additional sagittal and coronal reconstructions were generated. Images stored on PACS. All CT scanners at this facility use dose modulation, iterative reconstruction, and/or weight based d osing when appropriate to reduce radiation dose to as low as reasonably achievable (ALARA). [facility]: Dose Right [facility]: CareDose [facility]: Dose Right [facility]: Teradose 4D [facility]: [employer] RADIATION DOSE: CT Rad equipment meets quality standard of care and radiation dose reduction techniq ues were employed. CTDIvol: 53.2 mGy. DLP: 991 mGy-cm.mGy. LIMITATIONS: None. FINDINGS: VENTRICLES: Prominent. CEREBRUM: No masses. No hemorrhage. No midline shift. Areas of low density in the white matter mos t likely due to chronic micro-vascular ischemic change. No evidence for acute infarction. CEREBELLUM: No masses. No hemorrhage. No alteration of density. No evidence for acute infarction. EXTRAAXIAL SPACES: Age-related involutional change. No fluid collections. No masses. ORBITS AND GLOBE: No intra- or extraconal masses. Normal contour of globe without masses. CALVARIUM: No fracture. PARANASAL SINUSES: No fluid or mucosal thickening. SOFT TISSUES: No mass or hematoma. OTHER: No other significant finding. IMPRESSION: CHRONIC CHANGES OF ATROPHY AND MICROVASCULAR ISCHEMIA. NO ACUTE PROCESS. EVIDENCE OF ACUTE STROKE: NO. TECHNICAL DOCUMENTATION: JOB ID: [id number] Quality ID # [id number]: Final reports with documentation of one or more dose reduction techniques (e.g., Au tomated exposure control, adjustment of the mA and/or kV according to patient size, use of iterative reconstruction technique) 2010 [employer]- All Rights Reserved Reading location - IP/workstation name: [email or web address]
--- NOTE | 2018-12-18 15:36 | RADIOLOGY REPORT (SQ) ---
EXAM DESCRIPTION: HUMERUS LEFT COMPLETED DATE/TIME: 12/18/2018 3:10 pm REASON FOR STUDY: FALL, INJURY COMPARISON: None. NUMBER OF VIEWS: Two views. TECHNIQUE: Two radiographic images were acquired of the left humerus to include elbow and shoulder i n at least one projection. LIMITATIONS: None. FINDINGS: MINERALIZATION: Osteopenia. BONES: No acute fracture or dislocation. No worrisome bone lesions. SOFT TISSUES: No obvious swelling or foreign body. OTHER: Advanced glenohumeral joint arthropathy. IMPRESSION: No fracture. TECHNICAL DOCUMENTATION: JOB ID: [id number]- All Rights Reserved Reading location - IP/workstation name: [email or web address]
--- NOTE | 2018-12-18 15:37 | RADIOLOGY REPORT (SQ) ---
EXAM DESCRIPTION: RIBS LEFT W/PA CHEST COMPLETED DATE/TIME: 12/18/2018 3:10 pm REASON FOR STUDY: FALL, INJURY COMPARISON: None. TECHNIQUE: Frontal view of the chest and additional views of the left ribs acquired. NUMBER OF VIEWS: Five view. LIMITATIONS: None. FINDINGS: FRONTAL CXR: No pneumothorax. No pleural effusion. No atelectasis or infiltrates. RIBS: No displaced rib fractures. No lytic or blastic bony lesions. OTHER: No other significant finding. IMPRESSION: NO PNEUMOTHORAX. NO DISPLACED RIB FRACTURES. COMMENT: SITE OF TRAUMA/COMPLAINT MARKED/STAMP COMPLETED: NO. TECHNICAL DOCUMENTATION: JOB ID: [id number] [employer]- All Rights Reserved Reading location - IP/workstation name: [email or web address]
[2018-12-18 16:25] LABS: ABSOLUTE BASOPHILS # (AUTO) 0.1 10^3/uL (0.0-0.2); ABSOLUTE EOSINOPHILS # (AUTO) 0.2 10^3/uL (0.0-0.6); ABSOLUTE LYMPHOCYTES (AUTO) 0.7 10^3/uL (0.5-4.7); ABSOLUTE MONOCYTES (AUTO) 0.8 10^3/uL (0.1-1.4); ABSOLUTE NEUT (AUTO) 7.2 10^3/uL (1.7-8.2); BASOPHILS % (AUTO) 0.7 % (0-2); EOSINOPHILS % (AUTO) 1.9 % (0-6); HEMATOCRIT 33.5 % (36.0-47.0); HEMOGLOBIN 11.7 g/dL (12.0-15.5); LYMPHOCYTES % (AUTO) 8.3 % (13-45); MEAN CORPUSCULAR HEMOGLOBIN 32.5 pg (27.0-33.4); MEAN CORPUSCULAR HGB CONC 34.9 g/dL (32.0-36.0); MEAN CORPUSCULAR VOLUME 93 fl (80-97); MONOCYTES % (AUTO) 8.6 % (3-13); PLATELET COUNT 263 10^3/uL (150-450); RED CELL DISTRIBUTION WIDTH 15.6 % (11.5-14.0); SEGMENTED NEUTROPHILS % (AUTO) 80.5 % (42-78); TOTAL CELLS COUNTED % (AUTO) 100 %; WHITE BLOOD COUNT 8.9 10^3/uL (4.0-10.5)
[2018-12-18 16:51] LABS: ALANINE AMINOTRANSFERASE 31 U/L (9-52); ALBUMIN 4.1 g/dL (3.5-5.0); ALKALINE PHOSPHATASE 88 U/L (38-126); ANION GAP 11 (5-19); ASPARTATE AMINO TRANSFERASE 27 U/L (14-36); BILIRUBIN,DIRECT 0.3 mg/dL (0.0-0.4); BILIRUBIN,TOTAL 0.6 mg/dL (0.2-1.3); BLOOD UREA NITROGEN 22 mg/dL (7-20); CALCIUM 9.4 mg/dL (8.4-10.2); CARBON DIOXIDE 22 mmol/L (22-30); CHLORIDE 103 mmol/L (98-107); GLUCOSE 107 mg/dL (75-110); POTASSIUM 5.6 mmol/L (3.6-5.0); SODIUM 136.3 mmol/L (137-145); TOTAL PROTEIN 6.7 g/dL (6.3-8.2)
[2018-12-18 17:27] LABS: APPEARANCE,URINE CLEAR; BILIRUBIN,URINE NEGATIVE (NEGATIVE); COLOR,URINE YELLOW; GLUCOSE, URINE NEGATIVE (NEGATIVE); KETONES,URINE NEGATIVE (NEGATIVE); LEUKOCYTE ESTERASE,URINE NEGATIVE (NEGATIVE); NITRITE,URINE NEGATIVE (NEGATIVE); PROTEIN,URINE NEGATIVE (NEGATIVE); URINE SPECIFIC GRAVITY 1.014; UROBILINOGEN,URINE NEGATIVE mg/dL (<2.0)
[2018-12-18] MEDS ORDERED: NORMAL SALINE 1000 ML 1,000 ML IV ONE (17:51)
--- NOTE | 2018-12-18 17:52 | ER Document Report ---
ED Fall - General Chief Complaint: Fall Stated Complaint: FALL/ARM PAIN Time Seen by Provider: 12/18/18 14:02 Primary Care Provider: FATMATA GREENFIELD MD [Primary Care Provider] - Follow up as needed Mode of Arrival: Ambulatory Information source: Patient TRAVEL OUTSIDE OF THE [place] IN LAST 30 DAYS: No - Related data Allergies/Adverse Reactions: alginate dressing Allergy (Verified 07/10/18 12:31) allopurinol Allergy (Verified 07/10/18 12:31) Past Medical History - General Information source: Patient - Social History Smoking Status: Unknown if Ever Smoked Chew tobacco use (# tins/day): No Frequency of alcohol use: None Drug Abuse: None Family History: Other - Unknown to the patient Patient has suicidal ideation: No Patient has homicidal ideation: No - Past Medical History Cardiac Medical History: Reports: Hx Hypertension Renal/ Medical History: Denies: Hx Peritoneal Dialysis Musculoskeletal Medical History: 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 Psychiatric Medical History: Reports: Hx Dementia, Hx Depression Past Surgical History: Reports: Hx Cardiac Surgery - stent, Hx Gynecologic Surgery - uterine prolapse, Hx Orthopedic Surgery - hip replacement - Immunizations Hx Diphtheria, Pertussis, Tetanus Vaccination: Yes Physical Exam - Vital signs Vitals: Temp Pulse Resp BP Pulse Ox 98.0 F 73 16 132/59 H 95 12/18/18 12:47 12/18/18 12:47 12/18/18 12:47 12/18/18 12:47 12/18/18 12:47 Course - Vital Signs Vital signs: Temp Pulse Resp BP Pulse Ox 98.0 F 73 16 132/59 H 95 12/18/18 12:47 12/18/18 12:47 12/18/18 12:47 12/18/18 12:47 12/18/18 12:47 - Laboratory Result Diagrams: 12/18/18 16:01 12/18/18 16:01 Laboratory results interpreted by me: 12/18/18 12/18/18 16:01 16:01 RBC 3.60 L Hgb 11.7 L Hct 33.5 L RDW 15.6 H Seg Neutrophils % 80.5 H Lymphocytes % 8.3 L Sodium 136.3 L Potassium 5.6 H BUN 22 H Creatinine 1.29 H Est GFR ( Amer) 48 L Est GFR (Non-Af Amer) 39 L Discharge - Discharge Clinical Impression: Dehydration, Hyperkalemia, Hyponatremia Closed head injury Qualifiers: Encounter type: initial encounter Qualified Code(s): S09.90XA - Unspecified injury of head, initial encounter Referrals: FATMATA GREENFIELD MD [Primary Care Provider] - Follow up as needed
[2018-12-18] MEDS ORDERED: ACETAMINOPHEN 325 MG TABLET PO ONE (18:02)
--- NOTE | 2018-12-18 18:05 | ER Document Report ---
ED Fall - General Chief Complaint: Fall Stated Complaint: FALL/ARM PAIN Time Seen by Provider: 12/18/18 14:02 Primary Care Provider: FATMATA GREENFIELD MD [Primary Care Provider] - Follow up as needed Mode of Arrival: Ambulatory Information source: Patient TRAVEL OUTSIDE OF THE [place] IN LAST 30 DAYS: No - HPI Notes: Patient is a 83-year-old female that presents to the emergency department for chief complaint of fall. Patient's family states that she fell earlier today. Patient has dementia and they have a baby monitor on her in the room. They heard the noise and went upstairs and found her lying on the ground on her left side. They do believe she hit her head but denies any loss of consciousness. They state patient was oriented at her baseline level of dementia when they found her. She has complained of pain in the left side of her chest and left arm since the fall. She does have a history of total right hip replacement but has recently been complaining of increased pain in her left hip. Patient has been able to stand and bear weight since the fall. She denies any vision changes, headache, numbness and weakness. Past Medical History: Alzheimer's Past Surgical History: Reviewed in chart Social History: Denies drugs alcohol and tobacco Family History: Reviewed and noncontributory for presenting illness Allergies: Reviewed, see documented allergy list. REVIEW OF SYSTEMS: CONSTITUTIONAL : No fever No chills No diaphoresis No recent illness EENT: No vision changes No congestion No sore throat CARDIOVASCULAR: No chest pain No palpitations RESPIRATORY: No shortness of breath No cough No difficulty breathing GASTROINTESTINAL: No abdominal pain No nausea No vomiting No diarrhea GENITOURINARY: No dysuria No hematuria No difficulty urinating MUSCULOSKELETAL: No back pain Left hip pain Left arm pain Left chest wall pain SKIN: No rashes No lesions LYMPHATIC: No swollen, enlarged glands. NEUROLOGICAL: No lightheadedness No headache No weakness No paresthesias PSYCHIATRIC: No anxiety No depression PHYSICAL EXAMINATION: Vital signs reviewed, nursing noted reviewed. GENERAL: Well-appearing, well-nourished and in no acute distress. HEAD: Atraumatic, normocephalic. EYES: Eyes appear normal, extraocular movements intact, sclera anicteric, con junctiva are normal. ENT: nares patent, oropharynx clear without exudates. Moist mucous membranes. NECK: No midline spinal tenderness or step-off, normal range of motion without pain, supple without lymphadenopathy LUNGS: Tenderness to palpation of lateral left chest wall with no overlying ecchymosis or crepitus, breath sounds clear to auscultation bilaterally and equal. No wheezes rales or rhonchi. HEART: Regular rate and rhythm without murmurs ABDOMEN: Soft, nontender, normoactive bowel sounds. No rebound, guarding, or rigidity. No masses appreciated. EXTREMITIES: Ecchymosis and tenderness to palpation of distal left humerus with no deformity. No bony tenderness in the left elbow, forearm or wrist. Tenderness with axial loading of the left hip with normal range of motion. No tenderness with palpation of right hip and normal right hip range of motion. Pelvis stable. Normal left shoulder exam. NEUROLOGICAL: Oriented to person and place, disoriented to time and situation. Moves all extremities spontaneously Motor and sensory grossly intact on exam. PSYCH: Normal mood, normal affect. SKIN: Warm, Dry, normal turgor, ecchymosis over distal left humerus. - Related data Allergies/Adverse Reactions: alginate dressing Allergy (Verified 07/10/18 12:31) allopurinol Allergy (Verified 07/10/18 12:31) Past Medical History - General Information source: Patient - Social History Smoking Status: Unknown if Ever Smoked Chew tobacco use (# tins/day): No Frequency of alcohol use: None Drug Abuse: None Family History: Other - Unknown to the patient Patient has suicidal ideation: No Patient has homicidal ideation: No - Past Medical History Cardiac Medical History: Reports: Hx Hypertension Renal/ Medical History: Denies: Hx Peritoneal Dialysis Musculoskeletal Medical History: 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 Psychiatric Medical History: Reports: Hx Dementia, Hx Depression Past Surgical History: Reports: Hx Cardiac Surgery - stent, Hx Gynecologic Surgery - uterine prolapse, Hx Orthopedic Surgery - hip replacement - Immunizations Hx Diphtheria, Pertussis, Tetanus Vaccination: Yes Physical Exam - Vital signs Vitals: Temp Pulse Resp BP Pulse Ox 98.0 F 73 16 132/59 H 95 12/18/18 12:47 12/18/18 12:47 12/18/18 12:47 12/18/18 12:47 12/18/18 12:47 Course - Re-evaluation Re-evalutation: 12/18/18 19:38 Vitals reviewed. Nursing notes reviewed. Patient does have ecchymosis and tenderness over the left arm hand chest wall. She has a normal x-ray of her humerus as well as chest. There is no obvious fracture from her fall. CT scan of the head shows no acute intracranial injury. She has chronic changes of her cervical spine with no spinal tenderness or acute injury. Patient has been having pain in her left hip which was exacerbated today after the fall. X-ray shows degenerative changes of the hip with no acute fracture. They read a possible right hip dislocation however I have reviewed the films. Patient has no right hip tenderness and is able to move her right hip through full range of motion, the right hip is not dislocated. She is currently being treated for urinary tract infection and UA appears normal. She has no leukocytosis. She does have a mild hyperkalemia and elevated creatinine consistent with acute dehydration. Patient's family has declined IV hydration in the emergency room. They state that she does a good job of drinking fluids and they will encourage her to drink more water. I did advise him to have her BMP rechecked in the next few days by her PCP to assure improvement. Her EKG shows no changes of acute hyperkalemia requiring further management. The remainder of her blood work is unremarkable. She will be discharged home in stable condition for close outpatient follow-up. Laboratory 12/18/18 12/18/18 12/18/18 16:01 16:01 16:45 WBC 8.9 RBC 3.60 L Hgb 11.7 L Hct 33.5 L MCV 93 MCH 32.5 MCHC 34.9 RDW 15.6 H Plt Count 263 Seg Neutrophils % 80.5 H Lymphocytes % 8.3 L Monocytes % 8.6 Eosinophils % 1.9 Basophils % 0.7 Absolute Neutrophils 7.2 Absolute Lymphocytes 0.7 Absolute Monocytes 0.8 Absolute Eosinophils 0.2 Absolute Basophils 0.1 Sodium 136.3 L Potassium 5.6 H Chloride 103 Carbon Dioxide 22 Anion Gap 11 BUN 22 H Creatinine 1.29 H Est GFR ( Amer) 48 L Est GFR (Non-Af Amer) 39 L Glucose 107 Calcium 9.4 Total Bilirubin 0.6 Direct Bilirubin 0.3 Neonat Total Bilirubin Not Reportable Neonat Direct Bilirubin Not Reportable Neonat Indirect Bili Not Reportable AST 27 ALT 31 Alkaline Phosphatase 88 Total Protein 6.7 Albumin 4.1 Urine Color YELLOW Urine Appearance CLEAR Urine pH 5.0 Ur Specific [place] 1.014 Urine Protein NEGATIVE Urine Glucose (UA) NEGATIVE Urine Ketones NEGATIVE Urine Blood NEGATIVE Urine Nitrite NEGATIVE Urine Bilirubin NEGATIVE Urine Urobilinogen NEGATIVE Ur Leukocyte Esterase NEGATIVE Urine WBC (Auto) 2 Urine RBC (Auto) 2 U Hyaline Cast (Auto) 5 Squamous Epi Cells Auto 1 Urine Mucus (Auto) RARE Urine Ascorbic Acid NEGATIVE Cervical Spine CT 12/18/18 14:10 IMPRESSION: Anterolisthesis of C2 on C3. Multilevel degenerative disc disease, spondylosis, and facet arthropathy. No acute findings. Head CT 12/18/18 14:10 IMPRESSION: CHRONIC CHANGES OF ATROPHY AND MICROVASCULAR ISCHEMIA. NO ACUTE PROCESS. EVIDENCE OF ACUTE STROKE: NO. Humerus X-Ray 12/18/18 14:10 IMPRESSION: No fracture. Ribs w/Chest X-Ray 12/18/18 14:10 IMPRESSION: NO PNEUMOTHORAX. NO DISPLACED RIB FRACTURES. Hip X-Ray 12/18/18 18:02 IMPRESSION: Normal left hip. Right hip arthroplasty, possible dislocation. 12/18/18 19:53 - Vital Signs Vital signs: Temp Pulse Resp BP Pulse Ox 98.0 F 73 16 132/59 H 95 12/18/18 12:47 12/18/18 12:47 12/18/18 12:47 12/18/18 12:47 12/18/18 12:47 - Laboratory Result Diagrams: 12/18/18 16:01 12/18/18 16:01 Laboratory results interpreted by me: 12/18/18 12/18/18 16:01 16:01 RBC 3.60 L Hgb 11.7 L Hct 33.5 L RDW 15.6 H Seg Neutrophils % 80.5 H Lymphocytes % 8.3 L Sodium 136.3 L Potassium 5.6 H BUN 22 H Creatinine 1.29 H Est GFR ( Amer) 48 L Est GFR (Non-Af Amer) 39 L Discharge - Discharge Clinical Impression: Dehydration, Hyperkalemia, Hyponatremia Closed head injury Qualifiers: Encounter type: initial encounter Qualified Code(s): S09.90XA - Unspecified injury of head, initial encounter Contusion of left arm Qualifiers: Encounter type: initial encounter Qualified Code(s): S40.022A - Contusion of left upper arm, initial encounter Contusion of rib on left side Qualifiers: Encounter type: initial encounter Qualified Code(s): S20.212A - Contusion of left front wall of thorax, initial encounter Condition: Stable Disposition: HOME, SELF-CARE Instructions: Head Injury Precautions ([facility]), Rib Contusion ([facility]), Contusion ([facility]) Additional Instructions: Please return to the emergency department if you have any worsening, or concern of your symptoms. Please return to the emergency department if you develop chest pain, difficulty breathing, severe abdominal pain, or ongoing vomiting. Please follow-up with your primary care physician in 2-3 days and any other recommended physicians. If prescribed, take all medications as directed. If you have any questions or concerns do not hesitate to return the emergency department for evaluation. Twice a day be sure to take 10 deep breaths to help prevent pneumonia which can develop when you take shallow breaths from a painful rib injury. Monitor for signs of pneumonia including cough, congestion, fever and shortness of breath. Have your primary care doctor repeat your kidney and electrolyte testing, BMP, in the next few days Increase the amount of fluids you are drinking, your lab work today showed that you were dehydrated Referrals: FATMATA GREENFIELD MD [Primary Care Provider] - Follow up in 3-5 days
--- NOTE | 2018-12-18 19:15 | RADIOLOGY REPORT (SQ) ---
EXAM DESCRIPTION: HIP LEFT AP/LATERAL COMPLETED DATE/TIME: 12/18/2018 6:33 pm REASON FOR STUDY: trauma COMPARISON: None. NUMBER OF VIEWS: Two views. TECHNIQUE: AP pelvis and additional frog-leg view of the left hip. LIMITATIONS: None. FINDINGS: MINERALIZATION: Normal. LEFT HIP: No fracture or dislocation. No worrisome bone lesions. RIGHT HIP: There is a right hip arthroplasty. The femoral head component appears to be eccentrically situated with regard to the acetabular component. PUBIS AND ISCHIUM: No fracture. PELVIS: No fracture. SACRUM: No fracture or dislocation. No worrisome bone lesions. LOWER LUMBAR SPINE: No fracture or dislocation. No worrisome bone lesions. No significant disc disea se. SOFT TISSUES: No findings. OTHER: No other significant finding. IMPRESSION: Normal left hip. Right hip arthroplasty, possible dislocation. TECHNICAL DOCUMENTATION: JOB ID: [id number] [employer]- All Rights Reserved Reading location - IP/workstation name: [email or web address]
--- NOTE | 2018-12-20 10:29 | EKG REPORT ---
SEVERITY:- ABNORMAL ECG - SINUS RHYTHM NONSPECIFIC INTRAVENTRICULAR CONDUCTION DELAY PROBABLE INFERIOR INFARCT, OLD PROBABLE ANTERIOR INFARCT, AGE INDETERMINATE VS IVCD RELATED : Confirmed by: Brandon Manning 20-Dec-2018 10:28:47
== END 2018-12-18 19:58 | disposition home or self-care (01) ==
LOC: ER 12:29
DX: S09.90XA Unspecified injury of head, initial encounter (principal); S40.022A Contusion of left upper arm, initial encounter; S20.212A Contusion of left front wall of thorax, initial encounter; E86.0 Dehydration; E87.5 Hyperkalemia; E87.1 Hypo-osmolality and hyponatremia; M79.602 Pain in left arm; W19.XXXA Unspecified fall, initial encounter; G30.9 Alzheimer's disease, unspecified; F02.80 Dementia in other diseases classified elsewhere, unspecified severity, without behavioral disturbance, psychotic disturbance, mood disturbance, and anxiety; I10 Essential (primary) hypertension
CPT/HCPCS: 36415; 70450; 72125; 80053; 81001; 85025; 93005; 93010; 99284

== ENCOUNTER 2018-12-19 06:20 | Emergency (ER) | payer MEDICARE, OTHER ==
--- NOTE | 2018-12-19 08:38 | ER Document Report ---
ED General - General Chief Complaint: Fall Injury Stated Complaint: FALL/HEAD INJURY Time Seen by Provider: 12/19/18 08:08 Primary Care Provider: FATMATA GREENFIELD MD [Primary Care Provider] - Follow up as needed TRAVEL OUTSIDE OF THE [place] IN LAST 30 DAYS: No - HPI Notes: Patient is an 83-year-old female with a history of Alzheimer's dementia, under the care of neurology, who presents with daughter complaining of a fall at 4 AM this morning and swelling to the left side of her head. Daughter states that she was here yesterday for a fall and had a work-up performed at that time as well. Daughter states that she has a history of falls and was not ambulating with her walker as she is supposed to be. Daughter states that there was no loss of consciousness or nausea/vomiting. She is otherwise been acting and behaving normally. She is on antibiotics for urinary infection; although, yesterday's UA was unremarkable. Daughter states that she has been pushing fluids without any difficulties. She has been eating and drinking normally. She is urinating normally and having normal bowel movements. Daughter does report a recent medication change by her neurologist, but otherwise no other changes to patient's daily routine or other medicines. Denies any fever, neck pain, changes in vision/speech/mentation(at baseline per daughter)/hearing, URI, sore throat, chest pain, palpitations, syncope, cough, shortness of breath, wheeze, dyspnea, abdominal pain, nausea/vomiting/diarrhea, urinary retention, dysuria, hematuria, loss of control of bowel or bladder, numbness/tingling, saddle anesthesia, muscle paralysis/weakness, or rash. - Related Data Allergies/Adverse Reactions: alginate dressing Allergy (Verified 07/10/18 12:31) allopurinol Allergy (Verified 07/10/18 12:31) Past Medical History - Social History Smoking Status: Unknown if Ever Smoked Family History: Other - Unknown to the patient Patient has suicidal ideation: No Patient has homicidal ideation: No - Past Medical History Cardiac Medical History: Reports: Hx Hypertension Renal/ Medical History: Denies: Hx Peritoneal Dialysis Musculoskeletal Medical History: 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 Psychiatric Medical History: Reports: Hx Dementia, Hx Depression Past Surgical History: Reports: Hx Cardiac Surgery - stent, Hx Gynecologic Surgery - uterine prolapse, Hx Orthopedic Surgery - hip replacement - Immunizations Hx Diphtheria, Pertussis, Tetanus Vaccination: Yes Review of Systems - Review of Systems -: Yes All other systems reviewed and negative Physical Exam - Vital signs Vitals: Temp Pulse Resp BP Pulse Ox 97.5 F 78 16 124/47 L 94 12/19/18 06:30 12/19/18 06:30 12/19/18 06:30 12/19/18 06:30 12/19/18 06:30 - Notes Notes: PHYSICAL EXAMINATION: GENERAL: Well-appearing, well-nourished and in no acute distress. A&O to per son-baseline per daughter. Answers questions appropriately. HEAD: + hematoma posterior superior scalp with + tenderness. No duncan sign EYES: Pupils equal round and reactive to light, extraocular movements intact, sclera anicteric, conjunctiva are normal. No raccoon eyes/entrapment ENT: EAC clear b/l. TM's intact b/l without erythema, fluid, or perforation. Nares patent and without discharge. oropharynx clear without exudates. No tonsilar hypertrophy or erythema. Moist mucous membranes. No sinus tenderness. No hemotympanum/CSF discharge. NECK: Normal range of motion, supple without lymphadenopathy. No rigidity. No midline tenderness. Chest: No flail chest. equal rise/fall. Non-tender LUNGS: Breath sounds clear to auscultation bilaterally and equal. No wheezes rales or rhonchi. HEART: Regular rate and rhythm without murmurs, rubs, gallops. ABDOMEN: Soft, nontender, nondistended abdomen. No guarding, no rebound. No masses appreciated. Normal bowel sounds present. No CVA tenderness bilaterally. Musculoskeletal: Ext's b/l: FROM to passive/active. Strength 5+/5. No deficits noted. + tenderness left arm with ecchymosis from previous fall, not new per pt/daughter. No tenderness to pelvis to palp/manipulation. Back: FROM to passive/active. Strength 5+/5. No vertebral point tenderness, stepoffs, or deformities. No other bony tenderness or ecchymosis. Extremities: No cyanosis, clubbing, or edema b/l. Peripheral pulses 2+. Capillary refill less than 2 seconds. NEUROLOGICAL: GCS 15. Cranial nerves grossly intact. Normal speech. Normal s ensory, motor exams. Reflexes 2+ b/l. Pronator drift negative. Heel/lovelace, finger/nose wnl. PSYCH: Normal mood, normal affect. SKIN: see above. Course - Re-evaluation Re-evalutation: 12/19/18 10:25 Patient is an afebrile, well-hydrated, 83-year-old female who presents to her scalp status post head injury/fall. Vitals are acceptable without significant tachycardia, tachypnea, or hypoxia. PE is otherwise unremarkable for any focal neurological deficits. GCS 15, cranial nerves grossly intact, NIH 0. CT scan of the head and cervical spine were unremarkable for acute pathology aside from the scalp hematoma. BMP does show some mild dehydration, but otherwise similar findings as to yesterday. Daughter and patient declining IV fluids and is tolerating p.o. without difficulty. She is nontoxic-appearing. Low suspicion f or any acute glaucoma, temporal arteritis, meningitis, intracranial hemorrhage, ischemic stroke, or fracture at this time. Daughter is aware that this condition can change from initial presentation and that she needs to monitor symptoms closely for any acute changes. Recheck with your PCM in 2 to 3 days. Return to the ED with any other worsening/concerning symptoms as reviewed. Daughter and patient in agreement. - Vital Signs Vital signs: Temp Pulse Resp BP Pulse Ox 98 F 73 18 154/82 H 96 12/19/18 08:50 12/19/18 08:50 12/19/18 08:50 12/19/18 08:50 12/19/18 08:50 - Laboratory Result Diagrams: 12/19/18 09:13 Laboratory results interpreted by me: 12/19/18 09:13 Sodium 130.6 L Potassium 5.5 H Carbon Dioxide 20 L BUN 24 H Creatinine 1.31 H Est GFR ( Amer) 47 L Est GFR (Non-Af Amer) 39 L Discharge - Discharge Clinical Impression: Fall Qualifiers: Encounter type: initial encounter Qualified Code(s): W19.XXXA - Unspecified fall, initial encounter Head injury Qualifiers: Encounter type: initial encounter Qualified Code(s): S09.90XA - Unspecified injury of head, initial encounter Condition: Stable Disposition: HOME, SELF-CARE Instructions: Head Injury Precautions ([facility]), Post-Concussion Syndrome ([facility]) Additional Instructions: Rest, Ice/cool compress Tylenol/ibuprofen as needed Light stretches daily Strength exercises as able Moist heat and massage may help F/u with your PCP in 2-3 days for a recheck Consider consult(s) with Neurology for ongoing/worsening symptoms Return to the ED with any worsening symptoms and/or development of fever, headache, changes in behavior/mentation/vision/speech, chest pain, palpitations, syncope, shortness of breath, trouble breathing, abdominal pain, n/v/d, blood in stool/urine, loss of control of bowel/bladder, urinary retention, muscle weakness/paralysis, saddle anesthesia, numbness/tingling, or other worsening symptoms that are concerning to you. Forms: Elevated Blood Pressure Referrals: FATMATA GREENFIELD MD [Primary Care Provider] - 12/21/18
--- NOTE | 2018-12-19 08:53 | RADIOLOGY REPORT (SQ) ---
EXAM DESCRIPTION: CT HEAD WITHOUT COMPLETED DATE/TIME: 12/19/2018 8:31 am REASON FOR STUDY: fall injury COMPARISON: 12/18/2018. TECHNIQUE: Axial images acquired through the brain without intravenous contrast. Images reviewed wi th bone, brain and subdural windows. Additional sagittal and coronal reconstructions were generated. Images stored on PACS. All CT scanners at this facility use dose modulation, iterative reconstruction, and/or weight based d osing when appropriate to reduce radiation dose to as low as reasonably achievable (ALARA). [facility]: Dose Right [facility]: CareDose [facility]: Dose Right [facility]: Teradose 4D [facility]: [employer] RADIATION DOSE: CT Rad equipment meets quality standard of care and radiation dose reduction techniq ues were employed. CTDIvol: 53.2 mGy. DLP: 911 mGy-cm.mGy. LIMITATIONS: None. FINDINGS: VENTRICLES: Prominent. CEREBRUM: No masses. No hemorrhage. No midline shift. Areas of low density in the white matter mos t likely due to chronic micro-vascular ischemic change. No evidence for acute infarction. CEREBELLUM: No masses. No hemorrhage. No alteration of density. No evidence for acute infarction. EXTRAAXIAL SPACES: Age-related involutional change. No fluid collections. No masses. ORBITS AND GLOBE: No intra- or extraconal masses. Normal contour of globe without masses. CALVARIUM: No fracture. PARANASAL SINUSES: No fluid or mucosal thickening. SOFT TISSUES: Posterior scalp hematoma. OTHER: No other significant finding. IMPRESSION: 1. POSTERIOR SCALP HEMATOMA. NO SKULL FRACTURE OR OTHER ACUTE FINDINGS. 2. CHRONIC CHANGES OF ATROPHY AND MICROVASCULAR ISCHEMIA. NO ACUTE PROCESS. EVIDENCE OF ACUTE STROKE: NO. TECHNICAL DOCUMENTATION: JOB ID: [id number] Quality ID # [id number]: Final reports with documentation of one or more dose reduction techniques (e.g., Au tomated exposure control, adjustment of the mA and/or kV according to patient size, use of iterative reconstruction technique) 2010 [employer]- All Rights Reserved Reading location - IP/workstation name: [email or web address]
[2018-12-19] MEDS ORDERED: ACETAMINOPHEN 325 MG TABLET PO ONE (09:37)
[2018-12-19 09:46] LABS: ANION GAP 10 (5-19); BLOOD UREA NITROGEN 24 mg/dL (7-20); CARBON DIOXIDE 20 mmol/L (22-30); CHLORIDE 101 mmol/L (98-107); GLUCOSE 104 mg/dL (75-110); POTASSIUM 5.5 mmol/L (3.6-5.0); SODIUM 130.6 mmol/L (137-145)
--- NOTE | 2018-12-19 10:23 | RADIOLOGY REPORT (SQ) ---
EXAM DESCRIPTION: CT CERVICAL SPINE WITHOUT COMPLETED DATE/TIME: 12/19/2018 9:49 am REASON FOR STUDY: fall COMPARISON: 12/18/2018. 2018. TECHNIQUE: Axial images acquired through the cervical spine without intravenous contrast. Images re viewed with lung, soft tissue and bone windows. Reconstructed coronal and sagittal MPR images review ed. Images stored on PACS. All CT scanners at this facility use dose modulation, iterative reconstruction, and/or weight based d osing when appropriate to reduce radiation dose to as low as reasonably achievable (ALARA). [facility]: Dose Right [facility]: CareDose [facility]: Dose Right [facility]: Teradose 4D [facility]: [employer] LIMITATIONS: None. FINDINGS: ALIGNMENT: Chronic mild anterolisthesis at C2-3. Otherwise normal alignment. MINERALIZATION: Osteopenic. VERTEBRAL BODIES: No fractures or dislocation. DISCS: Multilevel disc disease with disc osteophyte complexes. FACETS, LATERAL MASSES, POSTERIOR ELEMENTS: Multilevel facet arthropathy without posterior element fr acture. VISUALIZED RIBS: No fractures. LUNG APICES AND SOFT TISSUES: No significant or acute findings. OTHER: No other significant finding. IMPRESSION: CHRONIC DEGENERATIVE CHANGES. NO ACUTE FINDINGS. COMMENT: Quality ID # [id number]: Final reports with documentation of one or more dose reduction techniques (e.g., Automated exposure control, adjustment of the mA and/or kV according to patient size, use of iterative reconstruction technique) TECHNICAL DOCUMENTATION: JOB ID: [id number] Reading location - IP/workstation name: [email or web address]
[2018-12-19 10:52] VITALS: BP 138/59
== END 2018-12-19 10:52 | disposition home or self-care (01) ==
LOC: ER 06:20
DX: S09.90XA Unspecified injury of head, initial encounter (principal); W19.XXXA Unspecified fall, initial encounter; G30.9 Alzheimer's disease, unspecified; F02.80 Dementia in other diseases classified elsewhere, unspecified severity, without behavioral disturbance, psychotic disturbance, mood disturbance, and anxiety; I10 Essential (primary) hypertension; Z96.649 Presence of unspecified artificial hip joint
CPT/HCPCS: 99284; 36415; 80048; 70450; 72125; A9270

== ENCOUNTER 2018-12-23 01:10 | Inpatient (IN) | payer MEDICARE, OTHER ==
[2018-12-23] MEDS ORDERED: HYDROCODONE/ACETAMINOPHEN 5-325 MG TABLET PO ONE (02:17)
[2018-12-23] MEDS ORDERED: ONDANSETRON 4 MG TAB.RAPDIS PO ONE (02:17)
--- NOTE | 2018-12-23 02:19 | ER Document Report ---
ED Medical Screen (RME) - General Chief Complaint: Shortness Of Breath Stated Complaint: DIFFICULTY BREATHING/CONGESTION Time Seen by Provider: 12/23/18 02:15 Primary Care Provider: FATMATA GREENFIELD MD [Primary Care Provider] - Follow up as needed Notes: 83-year-old female with chief complaint of pain in her left chest area, patient fell 4 days ago, is bruised in many locations including having soreness along the chest wall. Daughter states that tonight patient is complaining of more pain in the area, she also is developing a cough which sounds congested. No fever reported. TRAVEL OUTSIDE OF THE [place] IN LAST 30 DAYS: No - Related Data Allergies/Adverse Reactions: alginate dressing Allergy (Verified 07/10/18 12:31) allopurinol Allergy (Verified 07/10/18 12:31) Past Medical History - Past Medical History Cardiac Medical History: Reports: Hx Hypertension Renal/ Medical History: Denies: Hx Peritoneal Dialysis Musculoskeltal Medical History: 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 Psychiatric Medical History: Reports: Hx Dementia, Hx Depression Past Surgical History: Reports: Hx Cardiac Surgery - stent, Hx Gynecologic Surgery - uterine prolapse, Hx Orthopedic Surgery - hip replacement - Immunizations Hx Diphtheria, Pertussis, Tetanus Vaccination: Yes Physical Exam - Vital signs Vitals: Temp Pulse Resp BP Pulse Ox 98.0 F 80 22 H 122/56 L 94 12/23/18 01:30 12/23/18 01:30 12/23/18 01:30 12/23/18 01:30 12/23/18 01:30 - Respiratory Respiratory status: No: Labored, Retractions Chest status: Tender - Tender along the left chest wall generally Breath sounds: Nonproductive cough - Occasional congested nonproductive cough Course - Re-evaluation Re-evalutation: Patient taking Tylenol for pain at home, states it is not helping, she is extremely uncomfortable with any movement, she was provided with [place]. She is not in respiratory distress. Work-up pending. I have greeted and performed a rapid initial assessment of this patient. A comprehensive ED assessment and evaluation of the patient, analysis of test results and completion of the medical decision making process will be conducted by additional ED providers. - Vital Signs Vital signs: Temp Pulse Resp BP Pulse Ox 98.0 F 80 22 H 122/56 L 94 12/23/18 01:30 12/23/18 01:30 12/23/18 01:30 12/23/18 01:30 12/23/18 01:30 Doctor's Discharge - Discharge Referrals: FATMATA GREENFIELD MD [Primary Care Provider] - Follow up as needed
[2018-12-23 03:12] LABS: ABSOLUTE BASOPHILS # (AUTO) 0.1 10^3/uL (0.0-0.2); ABSOLUTE EOSINOPHILS # (AUTO) 0.3 10^3/uL (0.0-0.6); ABSOLUTE LYMPHOCYTES (AUTO) 1.3 10^3/uL (0.5-4.7); ABSOLUTE MONOCYTES (AUTO) 1.1 10^3/uL (0.1-1.4); ABSOLUTE NEUT (AUTO) 9.8 10^3/uL (1.7-8.2); BASOPHILS % (AUTO) 0.6 % (0-2); EOSINOPHILS % (AUTO) 2.3 % (0-6); HEMATOCRIT 27.9 % (36.0-47.0); HEMOGLOBIN 9.6 g/dL (12.0-15.5); LYMPHOCYTES % (AUTO) 10.5 % (13-45); MEAN CORPUSCULAR HEMOGLOBIN 32.1 pg (27.0-33.4); MEAN CORPUSCULAR HGB CONC 34.4 g/dL (32.0-36.0); MEAN CORPUSCULAR VOLUME 93 fl (80-97); MONOCYTES % (AUTO) 8.9 % (3-13); PLATELET COUNT 290 10^3/uL (150-450); RED BLOOD COUNT 2.99 10^6/uL (3.72-5.28); RED CELL DISTRIBUTION WIDTH 15.5 % (11.5-14.0); SEGMENTED NEUTROPHILS % (AUTO) 77.7 % (42-78); TOTAL CELLS COUNTED % (AUTO) 100 %; WHITE BLOOD COUNT 12.7 10^3/uL (4.0-10.5)
--- NOTE | 2018-12-23 03:15 | ER Document Report ---
ED General - General Chief Complaint: Shortness Of Breath Stated Complaint: DIFFICULTY BREATHING/CONGESTION Time Seen by Provider: 12/23/18 02:15 Primary Care Provider: FATMATA GREENFIELD MD [Primary Care Provider] - Follow up as needed Notes: Patient is a pleasant 83-year-old female presents with complaint of difficulty breathing, coughing and bringing up sputum, and severe rib pain. No fevers. No vomiting. She fell twice over the last 5 days. She was seen here approximately 4 days ago and diagnosed with rib contusion. She was discharged home. Patient's daughter says that since then she is gotten much worse and now is having difficulty breathing and coughing and bringing up large amounts of yellow sputum and is very uncomfortable at home. Daughter says that she has not been eating or drinking at all and she is concerned that she is becoming dehydrated. Daughter says patient is a full code. TRAVEL OUTSIDE OF THE [place] IN LAST 30 DAYS: No - Related Data Allergies/Adverse Reactions: alginate dressing Allergy (Verified 12/23/18 03:40) allopurinol Allergy (Verified 12/23/18 03:40) Past Medical History - Social History Smoking Status: Unknown if Ever Smoked Frequency of alcohol use: None Drug Abuse: None Family History: Other - Unknown to the patient - Past Medical History Cardiac Medical History: Reports: Hx Hypertension Renal/ Medical History: Denies: Hx Peritoneal Dialysis Musculoskeletal Medical History: 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 Psychiatric Medical History: Reports: Hx Dementia, Hx Depression Past Surgical History: Reports: Hx Cardiac Surgery - stent, Hx Gynecologic Surgery - uterine prolapse, Hx Orthopedic Surgery - hip replacement - Immunizations Hx Diphtheria, Pertussis, Tetanus Vaccination: Yes Review of Systems - Review of Systems Notes: My Normal Review Basic REVIEW OF SYSTEMS: CONSTITUTIONAL : Denies fever, chills, or sweats. Denies recent illness. EENT: Denies eye, ear, throat, or mouth pain or symptoms. Denies nasal or sinus congestion. CARDIOVASCULAR: Pain over left ribs. RESPIRATORY: Difficulty breathing. GASTROINTESTINAL: Denies abdominal pain. Denies nausea, vomiting, or diarrhea MUSCULOSKELETAL: Pain in left shoulder. SKIN: Denies rash or skin lesions. NEUROLOGICAL: Denies altered mental status or loss of consciousness. Denies headache. Denies weakness or paralysis or loss of use of either side. Denies problems with gait or speech. Denies sensory or motor loss. ALL OTHER SYSTEMS REVIEWED AND NEGATIVE. Physical Exam - Vital signs Vitals: Temp Pulse Resp BP Pulse Ox 98.0 F 80 22 H 122/56 L 94 12/23/18 01:30 12/23/18 01:30 12/23/18 01:30 12/23/18 01:30 12/23/18 01:30 - Notes Notes: General Appearance: Well nourished, alert, cooperative, no acute distress, moderate obvious discomfort. Vitals: reviewed, See vital signs table. Head: no swelling or tenderness to the head Eyes: PERRL, EOMI, Conjuctiva clear Mouth: No decreasd moisture Chest wall: Severe pain anytime I push over the ribs of the left lower chest wall. Lungs: No wheezing, No rales, some rales in the base of the left lung, No accessory muscle use, good air exchange bilaterally. Heart: Normal rate, Regular rythm, No murmur, no rub Neck: No tenderness to palpation of cervical spine. Abdomen: Normal BS, soft, No rigidity, No abdominal tenderness, No guarding, no rebound, no abdominal masses, no organomegaly Extremities: strength 5/5 in all extremities, good pulses in all extremities, no swelling or tenderness in the extremities exception of pain with any movement of the left upper arm., no edema. Skin: warm, dry, appropriate color, no rash Neuro: speech clear, oriented x 2, normal affect, responds appropriately to questions. Course - Re-evaluation Re-evalutation: 12/23/18 05:06 I did go forward a CT scan of the chest as patient is having some tachypnea when she first arrived in I am she is having a lot of pain is splinting of her breathing. Also the this in conjunction with her bring up a large amount of sputum the last 24 hours is concerned that she may be developing pneumonia due to atelectasis from splinting her breathing from her rib contusion. CT scan does show an effusion on the left side. I therefore treat her for possible underlying developing pneumonia. She is becoming hyponatremic and hyperkalemic concerning that she is becoming dehydrated from not eating or drinking. She developed some metabolic acidosis. Also on CT scan she does have a subcapital impaction fracture of the left humeral head. Treatment for this is sling. I did discuss this with the patient's daughter informed her of the fracture and treatment. I did inform her that we do not have orthopedics here; however, treatment for this type of fracture is a sling. She is understanding of this and is still okay with the patient staying here. I did inform her of my concerns the patient's pulmonary status as well as her dehydration and that I fear if she went home that she would get much worse and not do well. Daughter is agreeable with this and agrees to have the patient admitted. I did speak wit h the hospitalist, Dr. Brooks, who agrees to evaluate the patient for admission. Dictation of this chart was performed using voice recognition software; therefore, there may be some unintended grammatical errors. - Vital Signs Vital signs: Temp Pulse Resp BP Pulse Ox 97.5 F 80 22 H 105/52 L 95 12/23/18 03:28 12/23/18 01:30 12/23/18 03:31 12/23/18 03:31 12/23/18 03:31 - Laboratory Result Diagrams: 12/23/18 03:00 12/23/18 03:00 Laboratory results interpreted by me: 12/23/18 12/23/18 03:00 03:00 WBC 12.7 H RBC 2.99 L Hgb 9.6 L Hct 27.9 L RDW 15.5 H Lymphocytes % 10.5 L Absolute Neutrophils 9.8 H Sodium 128.3 L Potassium 6.0 H* Carbon Dioxide 19 L BUN 28 H Creatinine 1.32 H Est GFR ( Amer) 46 L Est GFR (Non-Af Amer) 38 L Total Protein 6.0 L - EKG Interpretation by Me Additional EKG results interpreted by me: 12/23/18 03:14 EKG is reviewed and interpreted by me. EKG shows sinus rhythm with a rate of [address] segment elevation or depression. No ischemic T wave inversions. IN interval is within normal range. QTc interval within normal range. QRS duration is prolonged due to left bundle branch block. Old EKG for comparison is from December 18, 2018 and also shows similar left bundle branch block. Discharge - Discharge Clinical Impression: Dehydration, Hyperkalemia, Hyponatremia Contusion of rib on left side Qualifiers: Encounter type: initial encounter Qualified Code(s): S20.212A - Contusion of left front wall of thorax, initial encounter Fracture of humeral head, closed Qualifiers: Encounter type: initial encounter Laterality: left Qualified Code(s): S42.292A - Other displaced fracture of upper end of left humerus, initial encounter for closed fracture Disposition: ADMITTED INPATIENT Admitting Provider: Todd (Hospitalist) Unit Admitted: Telemetry Referrals: FATMATA GREENFIELD MD [Primary Care Provider] - Follow up as needed
[2018-12-23 03:30] LABS: ALANINE AMINOTRANSFERASE 29 U/L (9-52); ALBUMIN 3.6 g/dL (3.5-5.0); ALKALINE PHOSPHATASE 84 U/L (38-126); ANION GAP 11 (5-19); ASPARTATE AMINO TRANSFERASE 31 U/L (14-36); BILIRUBIN,DIRECT 0.3 mg/dL (0.0-0.4); BILIRUBIN,TOTAL 0.6 mg/dL (0.2-1.3); BLOOD UREA NITROGEN 28 mg/dL (7-20); CALCIUM 8.8 mg/dL (8.4-10.2); CARBON DIOXIDE 19 mmol/L (22-30); CHLORIDE 98 mmol/L (98-107); GLUCOSE 94 mg/dL (75-110); SODIUM 128.3 mmol/L (137-145)
--- NOTE | 2018-12-23 03:57 | RADIOLOGY REPORT (SQ) ---
EXAM DESCRIPTION: XR CHEST 2 VIEWS COMPLETED DATE/TME: 12/23/2018 02:16 CLINICAL HISTORY: 83 years Female, left sided chest pain, cough COMPARISON: None. NUMBER OF VIEWS/TECHNIQUE: 2, Frontal, Lateral FINDINGS: Adequate lung volume, small left effusion, partially obscured cardiac silhouette on the lateral view only, and moderate osteoarthritis involves bilateral shoulders. IMPRESSION: Small left effusion.
[2018-12-23] MEDS ORDERED: NORMAL SALINE 500 ML IV ONE (04:31)
--- NOTE | 2018-12-23 04:37 | RADIOLOGY REPORT (SQ) ---
EXAM DESCRIPTION: CT CHEST WITHOUT IV CONTRAST COMPLETED DATE/TME: 12/23/2018 03:43 CLINICAL HISTORY: 83 years Female, left rib pain, coughing Comparison: None. Technique: No contrast. Coronal and sagittal reformat. This exam was performed according to our departmental dose-optimization program, which includes automated exposure control, adjustment of the mA and/or kV according to patient size and/or use of iterative reconstruction technique. [facility]: Dose Right [facility]: CareDose [facility]: Dose Right [facility]: Teradose 4D [facility]: [employer] LIMITATIONS: None Findings: Small left effusion. Cholelithiasis/gallbladder sludge. Subcapital fracture-deformity of the left humerus with mild impaction and likely acute-subacute component. Moderate chronic deformity of the right humeral neck. Moderate osteoarthritis of bilateral glenohumeral joints. Coronary arterial calcification/stent. Atherosclerotic vascular disease. Mild/Small thyroid heterogeneity/nodularity for which no follow-up imaging is recommended based on [facility] Best Practices Guidelines. Degenerative disc disease. Moderate exaggerated kyphotic curvature of the thoracic spine. Unenhanced inferior neck, axillae, mediastinum, lungs, airway, lymphatics, heart, vasculature, upper abdomen, and musculoskeleton appear otherwise unremarkable. Impression: 1. Subcapital fracture-deformity of the left humerus with mild impaction involves an acute-subacute component. Chronic deformity of the right humeral neck. 2. Small left effusion. 3. Cholelithiasis/gallbladder sludge.
[2018-12-23] MEDS ORDERED: LACTULOSE SYRUP 20 GM/30 ML UDCUP PO ONE (04:54)
[2018-12-23] MEDS ORDERED: MORPHINE SULFATE 10 MG/ML INJ IV PRN (04:54)
[2018-12-23] MEDS ORDERED: HYDRALAZINE HCL INJ/PF 20 MG/1 ML SDV IV PRN (04:54)
[2018-12-23] MEDS ORDERED: IPRATROPIUM/ALBUTEROL 0.5-2.5 MG/3 ML AMPUL NEB PRN (04:56)
[2018-12-23] MEDS ORDERED: MAGNESIUM HYDROXIDE SUSP 30 ML UDCUP PO ONE (04:58)
[2018-12-23] MEDS ORDERED: CALCIUM GLUCONATE 1,000 MG in DEXTROSE 5%-WATER 50 ML IV ONE (05:01)
[2018-12-23] MEDS ORDERED: DOXYCYCLINE HYCLATE INJ 100 MG VIAL IV ONE (05:04)
[2018-12-23] MEDS ORDERED: DOCUSATE SODIUM 100 MG CAPSULE PO ONE (06:00)
[2018-12-23] MEDS: HEPARIN SOD (PORCINE) 5,000 UNIT/ML 1 ML SYRINGE SUBCUT SCH ×3 (06:05→22:53)
[2018-12-23] MEDS ORDERED: FENTANYL 12 MCG/HR PATCH.TD72 TD ONE (06:09)
[2018-12-23] MEDS ORDERED: KETOROLAC TROMETHAMINE INJ/PF 30 MG/1 ML SDV IV PRN (06:10)
--- NOTE | 2018-12-23 06:24 | PDOC H&P ---
History of Present Illness Admission Date/PCP: 12/23/18 05:15 FATMATA GREENFIELD Patient complains of: Left arm and chest wall pain History of Present Illness: ERIK HERNANDEZ is a 83 year old female with a past medical history of advanced dementia, depression, hypertension, osteoarthritis, and recurrent urinary tract infection. Patient presented to the emergency room 5 days ago after a fall with scalp hematoma and rib contusion discharged home to return the following day after another fall. She diagnosed with a arm contusion and concussion and discharged on Ultram. She is subsequently had poor pain control, generalized weakness and poor p.o. intake prompting reevaluation the emergency room where a CT chest reveals left humeral fracture and left pleural effusion, labs reveal a 2 unit drop in hemoglobin over 5 days, hyponatremia 128 and hyperkalemia of 6 with peaked T waves. Patient's daughter at bedside who verifies the history including poor p.o. int patricia, intractable pain, difficulty with mobility developing shortness of breath. She receives lactulose for hyperkalemia and referred to the hospitalist for admission. Patient's daughter at bedside verifies CODE STATUS is full code despite poor functional capacity with dementia, acute renal failure and intractable pain. Past Medical History Cardiac Medical History: Reports: Hypertension Musculoskeltal Medical History: Reports: Arthritis - R neck Psychiatric Medical History: Reports: Dementia, Depression Past Surgical History Past Surgical History: Reports: Orthopedic Surgery - hip replacement Social History Information Source: Patient Lives with: Family Smoking Status: Unknown if Ever Smoked Frequency of Alcohol Use: Rare Hx Recreational Drug Use: No Drugs: None - Advance Directive Resuscitation Status: Full Code Family History Family History: Other - Unknown to the patient Parental Family History Reviewed: Yes Children Family History Reviewed: Yes Sibling(s) Family History Reviewed.: Yes Medication/Allergy Home Medications: Aspirin [Aspirin 81 mg Chewable Tablet] 81 mg PO DAILY 02/02/18 Carvedilol [Coreg 12.5 mg Tablet] 12.5 mg PO Q12 02/02/18 Cholecalciferol (Vitamin D3) [Vitamin D3 1000 Unit Tablet] 2,000 unit PO DAILY 02/02/18 Citalopram Hydrobromide [Celexa 10 mg Tablet] 10 mg PO DAILY 02/02/18 Cyanocobalamin (Vitamin B-12) [Vitamin B-12 1000 mcg Tablet] 1,000 mcg PO DAILY 02/02/18 Fluticasone Propionate [Flonase Nasal [place] 50 Mcg/[place] 16 gm] 1 spray NAREB DAILY 02/02/18 Furosemide [Lasix 40 mg Tablet] 40 mg PO QAM 02/02/18 Lactobacillus Acidophilus [Acidophilus] 1 tab PO DAILY 02/02/18 Melatonin [Melatonin 5 mg Tablet] 5 mg PO QHS 02/02/18 Memantine HCl [Memantine HCl ER] 28 mg PO DAILY 02/02/18 Methyl Salicylate/Menthol [Salonpas Patch] 1 each TP PRN PRN 02/02/18 Rivastigmine Tartrate [Rivastigmine] 3 mg PO Q12 02/02/18 Rosuvastatin Calcium [Crestor 20 mg Tablet] 20 mg PO QHS 02/02/18 Vit A/Vit C/Vit E/Zinc/Copper [Preservision Areds Softgel] 1 each PO Q12 02/02/18 Levofloxacin [Levaquin 500 mg Tablet] 500 mg PO DAILY #7 tablet 02/03/18 Quetiapine Fumarate [Seroquel 25 mg Tablet] 25 mg PO QHS #30 tablet 02/03/18 Cephalexin [Cephalexin 500 MG Tablet] 500 mg PO BID #14 tablet 06/27/18 Nitrofurantoin Macrocrystal [Macrodantin] 100 mg PO BID #14 capsule 06/27/18 Allergies/Adverse Reactions: alginate dressing Allergy (Verified 12/23/18 03:40) allopurinol Allergy (Verified 12/23/18 03:40) Review of Systems ROS unobtainable: Due to mental status Neurological: PRESENT: frequent falls, memory loss, weakness Physical Exam Vital Signs: Temp Pulse Resp BP Pulse Ox 97.5 F 80 26 H 120/58 L 96 12/23/18 03:28 12/23/18 01:30 12/23/18 05:31 12/23/18 05:31 12/23/18 05:31 Intake & Output 12/21/18 12/22/18 12/23/18 11:59 11:59 11:59 Intake Total 500 Balance 500 Weight 68.1 kg General appearance: PRESENT: cooperative, severe distress, well-developed. ABSENT: disheveled Head exam: PRESENT: normocephalic. ABSENT: atraumatic - Large left parietal, occipital hematoma Eye exam: PRESENT: conjunctiva pink, EOMI, PERRLA. ABSENT: scleral icterus Ear exam: PRESENT: normal external ear exam Mouth exam: PRESENT: dry mucosa, neck supple. ABSENT: laceration Neck exam: ABSENT: carotid bruit, JVD, lymphadenopathy, thyromegaly Respiratory exam: PRESENT: clear to auscultation mayte, crackles, decreased breath sounds - Secondary to splinting. ABSENT: rales, rhonchi, wheezes Cardiovascular exam: PRESENT: RRR. ABSENT: diastolic murmur, rubs, systolic murmur Pulses: PRESENT: normal dorsalis pedis pul Vascular exam: PRESENT: normal capillary refill GI/Abdominal exam: PRESENT: normal bowel sounds, soft. ABSENT: distended, guarding, mass, organolmegaly, rebound, tenderness Rectal exam: PRESENT: deferred Extremities exam: PRESENT: full ROM. ABSENT: calf tenderness, clubbing, pedal edema Neurological exam: PRESENT: alert, awake, oriented to person, CN II-XII grossly intact. ABSENT: motor sensory deficit Psychiatric exam: PRESENT: appropriate affect, normal mood. ABSENT: homicidal ideation, suicidal ideation Skin exam: PRESENT: dry, intact, warm. ABSENT: cyanosis, rash Results Laboratory Results: 12/23/18 03:00 12/23/18 03:00 12/23/18 12/23/18 03:00 03:00 WBC 12.7 H RBC 2.99 L Hgb 9.6 L Hct 27.9 L MCV 93 MCH 32.1 MCHC 34.4 RDW 15.5 H Plt Count 290 Seg Neutrophils % 77.7 Lymphocytes % 10.5 L Monocytes % 8.9 Eosinophils % 2.3 Basophils % 0.6 Absolute Neutrophils 9.8 H Absolute Lymphocytes 1.3 Absolute Monocytes 1.1 Absolute Eosinophils 0.3 Absolute Basophils 0.1 Sodium 128.3 L Potassium 6.0 H* Chloride 98 Carbon Dioxide 19 L Anion Gap 11 BUN 28 H Creatinine 1.32 H Est GFR ( Amer) 46 L Est GFR (Non-Af Amer) 38 L Glucose 94 Calcium 8.8 Total Bilirubin 0.6 AST 31 ALT 29 Alkaline Phosphatase 84 Total Protein 6.0 L Albumin 3.6 12/23/18 03:00 Troponin I < 0.012 Impressions: Chest X-Ray 12/23/18 02:16 IMPRESSION: Small left effusion. Assessment and Plan - Diagnosis (1) Intractable pain Is this a current diagnosis for this admission?: Yes Plan: Optimize pain control for aggressive pulmonary toilet, low-dose fentanyl, Toradol and IV morphine as needed (2) Contusion of rib on left side Qualifiers: Encounter type: initial encounter Qualified Code(s): S20.212A - Contusion of left front wall of thorax, initial encounter Is this a current diagnosis for this admission?: Yes Plan: Occurring after a fall approximately 4 days ago. Symptomatic management incentive spirometry for avoidance of atelectasis and pneumonia. (3) Dehydration Is this a current diagnosis for this admission?: Yes Plan: Gentle fluids, (4) Fracture of humeral head, closed Qualifiers: Encounter type: initial encounter Laterality: left Qualified Code(s): S42.292A - Other displaced fracture of upper end of left humerus, initial encounter for closed fracture Is this a current diagnosis for this admission?: Yes Plan: Left arm splinting, symptomatic management (5) Hyperkalemia Is this a current diagnosis for this admission?: Yes Plan: Calcium gluconate, lactulose and milk of magnesia initiated, follow-up chemistry (6) Hyponatremia Is this a current diagnosis for this admission?: Yes Plan: Most likely secondary to intractable pain. Follow-up chemistry (7) Dementia Qualifiers: Dementia type: unspecified type Dementia behavioral disturbance: without behavioral disturbance Qualified Code(s): F03.90 - Unspecified dementia without behavioral disturbance Is this a current diagnosis for this admission?: Yes Plan: Poor candidate for aggressive measures, concern for intractable pain requiring narcotics with sedation further complicating functional state. Anticipate poor outcome despite aggressive measures, consider hospice consult if not improving in 48 hours. - Time Time Spent with patient: 35 or more minutes - Inpatient Certification Medical Necessity: Need Close Monitoring Due to Risk of Patient Decompensation
[2018-12-23] MEDS: IPRATROPIUM/ALBUTEROL 0.5-2.5 MG/3 ML AMPUL NEB SCH ×2 (08:31→20:02)
[2018-12-23] MEDS: NORMAL SALINE 1000 ML 1,000 ML IV PRN (09:56)
[2018-12-23] MEDS: CITALOPRAM HYDROBROMIDE 20 MG TABLET PO SCH (09:56)
[2018-12-23] MEDS: CHOLECALCIFEROL (D3) 1,000 UNIT TABLET PO SCH (09:57)
[2018-12-23] MEDS: RIVASTIGMINE TARTRATE 1.5 MG CAPSULE PO SCH ×2 (09:58→22:54)
[2018-12-23] MEDS: ASPIRIN 81 MG TABLET, CHEWABLE PO SCH (09:58)
[2018-12-23] MEDS: FLUTICASONE NASAL SPRAY 50 MCG/SPRY 120 SPRAY/16 GM NAREB SCH (09:58)
[2018-12-23] MEDS: CARVEDILOL 12.5 MG TABLET PO SCH ×2 (09:58→22:54)
[2018-12-23 12:04] LABS: ANION GAP 10 (5-19); BLOOD UREA NITROGEN 25 mg/dL (7-20); CALCIUM 8.4 mg/dL (8.4-10.2); CARBON DIOXIDE 19 mmol/L (22-30); CHLORIDE 102 mmol/L (98-107); GLUCOSE 104 mg/dL (75-110); POTASSIUM 5.1 mmol/L (3.6-5.0); SODIUM 131.4 mmol/L (137-145)
--- NOTE | 2018-12-23 12:37 | EKG REPORT ---
SEVERITY:- ABNORMAL ECG - SINUS RHYTHM LEFT BUNDLE BRANCH BLOCK : Confirmed by: Brandon Manning 23-Dec-2018 12:37:03
[2018-12-23] MEDS ORDERED: CALCIUM GLUCONATE 1000 MG/10 ML INJ IV ONE (13:00)
[2018-12-23 14:51] LABS: APPEARANCE,URINE CLEAR; BILIRUBIN,URINE NEGATIVE (NEGATIVE); COLOR,URINE YELLOW; GLUCOSE, URINE NEGATIVE (NEGATIVE); KETONES,URINE NEGATIVE (NEGATIVE); LEUKOCYTE ESTERASE,URINE NEGATIVE (NEGATIVE); NITRITE,URINE NEGATIVE (NEGATIVE); PROTEIN,URINE NEGATIVE (NEGATIVE); URINE SPECIFIC GRAVITY 1.008; UROBILINOGEN,URINE NEGATIVE mg/dL (<2.0)
--- NOTE | 2018-12-23 18:25 | PDOC PROGRESS REPORT ---
Subjective Progress Note for:: 12/23/18 Subjective:: This is an 83 year old female with a past medical history of advanced dementia, depression, hypertension, osteoarthritis, and recurrent urinary tract infection. Patient presented to the emergency room 5 days ago after a fall with scalp hematoma and rib contusion discharged home to return the following day after another fall. She diagnosed with an arm contusion and concussion and discharged on Ultram. She is subsequently had poor pain control, generalized weakness and poor p.o. intake prompting reevaluation the emergency room where a CT chest reveals left humeral fracture and left pleural effusion, labs reveal a 2 unit drop in hemoglobin over 5 days, hyponatremia 128 and hyperkalemia of 6 with peaked T waves. Patient was admitted early this morning. On encounter, daughter is in the bedside. Patient appears comfortable and pain is well controlled with morphine. She is awake and is oriented to person and place. Discussed plan of care for evaluation by physical therapist and possible need for placement due to her recurrent falls. Daughter is amenable to possible placement if needed. Patient's daughter did express that patient has been started by PCP on Bactrim due to her recurrent UTI. Reason For Visit: BRONCHITIS, HYPERKALEMIA, HYPONATREMIA, HUMERAL FX Physical Exam Vital Signs: Temp Pulse Resp BP Pulse Ox 98.7 F 73 24 H 117/58 L 93 12/23/18 11:24 12/23/18 11:24 12/23/18 11:24 12/23/18 11:24 12/23/18 14:02 Intake & Output 12/22/18 12/23/18 12/24/18 06:59 06:59 06:59 Intake Total 500 Balance 500 Weight 150 lb 2.157 oz General appearance: PRESENT: no acute distress, well-developed, well-nourished Head exam: PRESENT: atraumatic, normocephalic Eye exam: PRESENT: conjunctiva pink, EOMI, PERRLA. ABSENT: scleral icterus Ear exam: PRESENT: normal external ear exam Mouth exam: PRESENT: moist, tongue midline Neck exam: ABSENT: carotid bruit, JVD, lymphadenopathy, thyromegaly Respiratory exam: PRESENT: clear to auscultation mayte. ABSENT: rales, rhonchi, wheezes Cardiovascular exam: PRESENT: RRR. ABSENT: diastolic murmur, rubs, systolic murmur Pulses: PRESENT: normal dorsalis pedis pul GI/Abdominal exam: PRESENT: normal bowel sounds, soft. ABSENT: distended, guarding, mass, organolmegaly, rebound, tenderness Rectal exam: PRESENT: deferred Neurological exam: PRESENT: alert, awake, oriented to person, oriented to place, CN II-XII grossly intact. ABSENT: motor sensory deficit Results Laboratory Results: 12/23/18 03:00 12/23/18 10:53 12/23/18 12/23/18 12/23/18 03:00 03:00 03:00 WBC 12.7 H RBC 2.99 L Hgb 9.6 L Hct 27.9 L MCV 93 MCH 32.1 MCHC 34.4 RDW 15.5 H Plt Count 290 Seg Neutrophils % 77.7 Lymphocytes % 10.5 L Monocytes % 8.9 Eosinophils % 2.3 Basophils % 0.6 Absolute Neutrophils 9.8 H Absolute Lymphocytes 1.3 Absolute Monocytes 1.1 Absolute Eosinophils 0.3 Absolute Basophils 0.1 Sodium 128.3 L Potassium 6.0 H* Chloride 98 Carbon Dioxide 19 L Anion Gap 11 BUN 28 H Creatinine 1.32 H Est GFR ( Amer) 46 L Est GFR (Non-Af Amer) 38 L Glucose 94 Calcium 8.8 Iron 34.7 L Total Bilirubin 0.6 AST 31 ALT 29 Alkaline Phosphatase 84 Total Protein 6.0 L Albumin 3.6 Urine Color Urine Appearance Urine pH Ur Specific [place] Urine Protein Urine Glucose (UA) Urine Ketones Urine Blood Urine Nitrite Ur Leukocyte Esterase Urine WBC (Auto) Urine RBC (Auto) 12/23/18 12/23/18 10:53 14:30 WBC RBC Hgb Hct MCV MCH MCHC RDW Plt Count Seg Neutrophils % Lymphocytes % Monocytes % Eosinophils % Basophils % Absolute Neutrophils Absolute Lymphocytes Absolute Monocytes Absolute Eosinophils Absolute Basophils Sodium 131.4 L Potassium 5.1 H Chloride 102 Carbon Dioxide 19 L Anion Gap 10 BUN 25 H Creatinine 1.28 H Est GFR ( Amer) 48 L Est GFR (Non-Af Amer) 40 L Glucose 104 Calcium 8.4 Iron Total Bilirubin AST ALT Alkaline Phosphatase Total Protein Albumin Urine Color YELLOW Urine Appearance CLEAR Urine pH 5.0 Ur Specific [place] 1.008 Urine Protein NEGATIVE Urine Glucose (UA) NEGATIVE Urine Ketones NEGATIVE Urine Blood NEGATIVE Urine Nitrite NEGATIVE Ur Leukocyte Esterase NEGATIVE Urine WBC (Auto) 0 Urine RBC (Auto) 1 12/23/18 03:00 Troponin I < 0.012 Impressions: Chest X-Ray 12/23/18 02:16 IMPRESSION: Small left effusion. Assessment and Plan - Diagnosis (1) Contusion of rib on left side Qualifiers: Encounter type: initial encounter Qualified Code(s): S20.212A - Contusion of left front wall of thorax, initial encounter Is this a current diagnosis for this admission?: Yes Plan: Secondary to recurrent fall. Pain is well controlled. (2) Acute kidney injury Is this a current diagnosis for this admission?: Yes Plan: Start normal saline at 50 cc/hr. Repeat BMP. (3) Fracture of humeral head, closed Qualifiers: Encounter type: initial encounter Laterality: left Qualified Code(s): S42.292A - Other displaced fracture of upper end of left humerus, initial encounter for closed fracture Is this a current diagnosis for this admission?: Yes Plan: Nonsurgical management. Currently not on aspirin. RN to put in splint with physical therapist. (4) Hyperkalemia Is this a current diagnosis for this admission?: Yes Plan: Improved. She did get lactulose. Likely from JOEY and Bactrim. Repeat potassium is significantly improved at 5.1. (5) Hyponatremia Is this a current diagnosis for this admission?: Yes Plan: Improved. - Time Time Spent with patient: 25-34 minutes
[2018-12-23] MEDS: DOCUSATE SODIUM 100 MG CAPSULE PO SCH (19:29)
[2018-12-23 22:49] LABS: ANION GAP 9 (5-19); BLOOD UREA NITROGEN 21 mg/dL (7-20); CALCIUM 8.7 mg/dL (8.4-10.2); CARBON DIOXIDE 20 mmol/L (22-30); CHLORIDE 104 mmol/L (98-107); GLUCOSE 93 mg/dL (75-110); POTASSIUM 5.4 mmol/L (3.6-5.0); SODIUM 132.7 mmol/L (137-145)
[2018-12-23] MEDS: ATORVASTATIN CALCIUM 40 MG TABLET PO SCH (22:54)
[2018-12-23] MEDS: QUETIAPINE FUMARATE 25 MG TABLET PO SCH (22:54)
[2018-12-24] MEDS: HEPARIN SOD (PORCINE) 5,000 UNIT/ML 1 ML SYRINGE SUBCUT SCH ×3 (05:22→21:01)
[2018-12-24 05:27] LABS: ABSOLUTE BASOPHILS # (AUTO) 0.1 10^3/uL (0.0-0.2); ABSOLUTE EOSINOPHILS # (AUTO) 0.3 10^3/uL (0.0-0.6); ABSOLUTE LYMPHOCYTES (AUTO) 1.2 10^3/uL (0.5-4.7); ABSOLUTE MONOCYTES (AUTO) 0.9 10^3/uL (0.1-1.4); BASOPHILS % (AUTO) 0.7 % (0-2); EOSINOPHILS % (AUTO) 3.3 % (0-6); HEMATOCRIT 27.9 % (36.0-47.0); HEMOGLOBIN 9.7 g/dL (12.0-15.5); MEAN CORPUSCULAR HEMOGLOBIN 32.6 pg (27.0-33.4); MEAN CORPUSCULAR HGB CONC 34.9 g/dL (32.0-36.0); MEAN CORPUSCULAR VOLUME 93 fl (80-97); MONOCYTES % (AUTO) 10.6 % (3-13); PLATELET COUNT 257 10^3/uL (150-450); RED BLOOD COUNT 2.98 10^6/uL (3.72-5.28); RED CELL DISTRIBUTION WIDTH 15.4 % (11.5-14.0); SEGMENTED NEUTROPHILS % (AUTO) 71.4 % (42-78); TOTAL CELLS COUNTED % (AUTO) 100 %; WHITE BLOOD COUNT 8.5 10^3/uL (4.0-10.5)
[2018-12-24] MEDS: NORMAL SALINE 1000 ML 1,000 ML IV PRN ×2 (06:51→13:59)
[2018-12-24] MEDS: IPRATROPIUM/ALBUTEROL 0.5-2.5 MG/3 ML AMPUL NEB SCH ×2 (07:35→21:21)
[2018-12-24] MEDS: DOCUSATE SODIUM 100 MG CAPSULE PO SCH ×2 (09:36→17:22)
[2018-12-24] MEDS: CHOLECALCIFEROL (D3) 1,000 UNIT TABLET PO SCH (09:36)
[2018-12-24] MEDS: CARVEDILOL 12.5 MG TABLET PO SCH ×2 (09:36→21:00)
[2018-12-24] MEDS: ASPIRIN 81 MG TABLET, CHEWABLE PO SCH (09:36)
[2018-12-24] MEDS: CITALOPRAM HYDROBROMIDE 20 MG TABLET PO SCH (09:37)
[2018-12-24] MEDS: FLUTICASONE NASAL SPRAY 50 MCG/SPRY 120 SPRAY/16 GM NAREB SCH (09:37)
[2018-12-24] MEDS: RIVASTIGMINE TARTRATE 1.5 MG CAPSULE PO SCH ×2 (09:37→21:00)
--- NOTE | 2018-12-24 14:01 | PDOC PROGRESS REPORT ---
Subjective Progress Note for:: 12/24/18 Subjective:: This is an 83 year old female with a past medical history of advanced dementia, depression, hypertension, osteoarthritis, and recurrent urinary tract infection. Patient presented to the emergency room 5 days ago after a fall with scalp hematoma and rib contusion discharged home to return the following day after another fall. She diagnosed with an arm contusion and concussion and discharged on Ultram. She is subsequently had poor pain control, generalized weakness and poor p.o. intake prompting reevaluation the emergency room where a CT chest reveals left humeral fracture and left pleural effusion, labs reveal a 2 unit drop in hemoglobin over 5 days, hyponatremia 128 and hyperkalemia of 6 with peaked T waves. Patient was admitted early this morning. On encounter, daughter is in the bedside. Patient appears comfortable and pain is well controlled with morphine. She is awake and is oriented to person and place. Discussed plan of care for evaluation by physical therapist and possible need for placement due to her recurrent falls. Daughter is amenable to possible placement if needed. Patient's daughter did express that patient has been started by PCP on Bactrim due to her recurrent UTI. 12/24: No acute event overnight. She appears to be in her baseline mentation but occasionally sundowns from her dementia. She has been very talkative this mo rning. PT has evaluated patient and has recommended SNF/short term rehab. Agree as patient does have advancing dementia and recurrent falls. Will consult discharge planning to initiate placement process. Reason For Visit: BRONCHITIS, HYPERKALEMIA, HYPONATREMIA, HUMERAL FX Physical Exam Vital Signs: Temp Pulse Resp BP Pulse Ox 99.3 F 81 24 H 144/66 H 100 12/24/18 11:42 12/24/18 11:42 12/24/18 11:42 12/24/18 11:42 12/24/18 11:42 Intake & Output 12/23/18 12/24/18 12/25/18 06:59 06:59 06:59 Intake Total 500 1480 200 Balance 500 1480 200 Weight 150 lb 2.157 oz 152 lb 1.903 oz General appearance: PRESENT: no acute distress, well-developed, well-nourished Head exam: PRESENT: atraumatic, normocephalic Eye exam: PRESENT: conjunctiva pink, EOMI, PERRLA. ABSENT: scleral icterus Ear exam: PRESENT: normal external ear exam Mouth exam: PRESENT: moist, tongue midline Neck exam: ABSENT: carotid bruit, JVD, lymphadenopathy, thyromegaly Respiratory exam: PRESENT: clear to auscultation mayte. ABSENT: rales, rhonchi, wheezes Cardiovascular exam: PRESENT: RRR. ABSENT: diastolic murmur, rubs, systolic murmur Pulses: PRESENT: normal dorsalis pedis pul GI/Abdominal exam: PRESENT: normal bowel sounds, soft. ABSENT: distended, guarding, mass, organolmegaly, rebound, tenderness Rectal exam: PRESENT: deferred Neurological exam: PRESENT: alert, awake, oriented to person, CN II-XII grossly intact. ABSENT: motor sensory deficit Results Laboratory Results: 12/24/18 04:49 12/23/18 22:07 12/23/18 12/23/18 12/24/18 14:30 22:07 04:49 WBC 8.5 RBC 2.98 L Hgb 9.7 L Hct 27.9 L MCV 93 MCH 32.6 MCHC 34.9 RDW 15.4 H Plt Count 257 Seg Neutrophils % 71.4 Lymphocytes % 14.0 Monocytes % 10.6 Eosinophils % 3.3 Basophils % 0.7 Absolute Neutrophils 6.0 Absolute Lymphocytes 1.2 Absolute Monocytes 0.9 Absolute Eosinophils 0.3 Absolute Basophils 0.1 Sodium 132.7 L Potassium 5.4 H Chloride 104 Carbon Dioxide 20 L Anion Gap 9 BUN 21 H Creatinine 1.19 Est GFR ( Amer) 52 L Est GFR (Non-Af Amer) 43 L Glucose 93 Calcium 8.7 Urine Color YELLOW Urine Appearance CLEAR Urine pH 5.0 Ur Specific [place] 1.008 Urine Protein NEGATIVE Urine Glucose (UA) NEGATIVE Urine Ketones NEGATIVE Urine Blood NEGATIVE Urine Nitrite NEGATIVE Ur Leukocyte Esterase NEGATIVE Urine WBC (Auto) 0 Urine RBC (Auto) 1 12/23/18 03:00 Troponin I < 0.012 Impressions: Chest X-Ray 12/23/18 02:16 IMPRESSION: Small left effusion. Assessment and Plan - Diagnosis (1) Contusion of rib on left side Qualifiers: Encounter type: initial encounter Qualified Code(s): S20.212A - Contusion of left front wall of thorax, initial encounter Is this a current diagnosis for this admission?: Yes Plan: Secondary to recurrent fall. Pain is well controlled. (2) Acute kidney injury Is this a current diagnosis for this admission?: Yes Plan: Improving with IV fluids. (3) Fracture of humeral head, closed Qualifiers: Encounter type: initial encounter Laterality: left Qualified Code(s): S42.292A - Other displaced fracture of upper end of left humerus, initial encounter for closed fracture Is this a current diagnosis for this admission?: Yes Plan: Nonsurgical management. Currently not on splint. RN to put in splint with physical therapist. (4) Hyperkalemia Is this a current diagnosis for this admission?: Yes Plan: Improved. She did get lactulose. Likely from JOEY and Bactrim. Repeat potassium is significantly improved at 5.1. 5/26L: Will add Patiromer. (5) Hyponatremia Is this a current diagnosis for this admission?: Yes Plan: Improved with IV fluids. - Time Time Spent with patient: 15-24 minutes
[2018-12-24 15:16] LABS: ANION GAP 10 (5-19); BLOOD UREA NITROGEN 23 mg/dL (7-20); CALCIUM 8.9 mg/dL (8.4-10.2); CARBON DIOXIDE 21 mmol/L (22-30); CHLORIDE 105 mmol/L (98-107); GLUCOSE 129 mg/dL (75-110); SODIUM 135.9 mmol/L (137-145)
[2018-12-24] MEDS: PATIROMER 8.4 GM SUSP PACKET PO SCH (17:22)
[2018-12-24] MEDS: ATORVASTATIN CALCIUM 40 MG TABLET PO SCH (21:00)
[2018-12-24] MEDS: QUETIAPINE FUMARATE 25 MG TABLET PO SCH (21:01)
[2018-12-25] MEDS: HEPARIN SOD (PORCINE) 5,000 UNIT/ML 1 ML SYRINGE SUBCUT SCH ×2 (05:12→17:26)
[2018-12-25 06:05] LABS: ANION GAP 9 (5-19); BLOOD UREA NITROGEN 21 mg/dL (7-20); CALCIUM 9.4 mg/dL (8.4-10.2); CARBON DIOXIDE 20 mmol/L (22-30); CHLORIDE 107 mmol/L (98-107); GLUCOSE 110 mg/dL (75-110); POTASSIUM 5.1 mmol/L (3.6-5.0); SODIUM 136.4 mmol/L (137-145)
[2018-12-25] MEDS: IPRATROPIUM/ALBUTEROL 0.5-2.5 MG/3 ML AMPUL NEB SCH ×2 (08:27→19:18)
[2018-12-25] MEDS: ASPIRIN 81 MG TABLET, CHEWABLE PO SCH (11:27)
[2018-12-25] MEDS: CARVEDILOL 12.5 MG TABLET PO SCH ×2 (11:27→22:28)
[2018-12-25] MEDS: CITALOPRAM HYDROBROMIDE 20 MG TABLET PO SCH (11:27)
[2018-12-25] MEDS: CHOLECALCIFEROL (D3) 1,000 UNIT TABLET PO SCH (11:27)
[2018-12-25] MEDS: DOCUSATE SODIUM 100 MG CAPSULE PO SCH ×2 (11:27→17:25)
[2018-12-25] MEDS: FLUTICASONE NASAL SPRAY 50 MCG/SPRY 120 SPRAY/16 GM NAREB SCH (11:28)
[2018-12-25] MEDS: RIVASTIGMINE TARTRATE 1.5 MG CAPSULE PO SCH ×2 (11:28→22:28)
[2018-12-25] MEDS: NORMAL SALINE 1000 ML 1,000 ML IV PRN (12:43)
--- NOTE | 2018-12-25 15:16 | PDOC PROGRESS REPORT ---
Subjective Progress Note for:: 12/25/18 Subjective:: This is an 83 year old female with a past medical history of advanced dementia, depression, hypertension, osteoarthritis, and recurrent urinary tract infection. Patient presented to the emergency room 5 days ago after a fall with scalp hematoma and rib contusion discharged home to return the following day after another fall. She diagnosed with an arm contusion and concussion and discharged on Ultram. She is subsequently had poor pain control, generalized weakness and poor p.o. intake prompting reevaluation the emergency room where a CT chest reveals left humeral fracture and left pleural effusion, labs reveal a 2 unit drop in hemoglobin over 5 days, hyponatremia 128 and hyperkalemia of 6 with peaked T waves. Patient was admitted early this morning. On encounter, daughter is in the bedside. Patient appears comfortable and pain is well controlled with morphine. She is awake and is oriented to person and place. Discussed plan of care for evaluation by physical therapist and possible need for placement due to her recurrent falls. Daughter is amenable to possible placement if needed. Patient's daughter did express that patient has been started by PCP on Bactrim due to her recurrent UTI. 12/24: She appears to be in her baseline mentation but occasionally sundowns from her dementia. She has been very talkative this morning. PT has evaluated p atient and has recommended SNF/short term rehab. Agree as patient does have advancing dementia and recurrent falls and has sustained a humeral fracture this time. Will consult discharge planning to initiate placement process. 12/25: No acute event overnight. She is at her baseline. Pain is well controlled. Awaiting for placement. Reason For Visit: BRONCHITIS, HYPERKALEMIA, HYPONATREMIA, HUMERAL FX Physical Exam Vital Signs: Temp Pulse Resp BP Pulse Ox 97.8 F 109 H 22 H 149/81 H 97 12/25/18 11:49 12/25/18 11:49 12/25/18 11:49 12/25/18 11:49 12/25/18 11:49 Intake & Output 12/24/18 12/25/18 12/26/18 06:59 06:59 06:59 Intake Total 0802 604 8557 Balance 8981 950 7840 Weight 152 lb 1.903 oz 152 lb 8.958 oz General appearance: PRESENT: no acute distress, well-developed, well-nourished Head exam: PRESENT: atraumatic, normocephalic Eye exam: PRESENT: conjunctiva pink, EOMI, PERRLA. ABSENT: scleral icterus Ear exam: PRESENT: normal external ear exam Mouth exam: PRESENT: moist, tongue midline Neck exam: ABSENT: carotid bruit, JVD, lymphadenopathy, thyromegaly Respiratory exam: PRESENT: clear to auscultation mayte. ABSENT: rales, rhonchi, wheezes Cardiovascular exam: PRESENT: RRR. ABSENT: diastolic murmur, rubs, systolic murmur Pulses: PRESENT: normal dorsalis pedis pul GI/Abdominal exam: PRESENT: normal bowel sounds, soft. ABSENT: distended, guarding, mass, organolmegaly, rebound, tenderness Rectal exam: PRESENT: deferred Neurological exam: PRESENT: alert, awake, oriented to person, CN II-XII grossly intact. ABSENT: oriented to place, oriented to time, motor sensory deficit Results Laboratory Results: 12/24/18 04:49 12/25/18 05:07 12/24/18 12/25/18 14:45 05:07 Sodium 135.9 L 136.4 L Potassium 5.0 5.1 H Chloride 105 107 Carbon Dioxide 21 L 20 L Anion Gap 10 9 BUN 23 H 21 H Creatinine 1.27 H 0.94 Est GFR ( Amer) 48 L > 60 Est GFR (Non-Af Amer) 40 L 57 L Glucose 129 H 110 Calcium 8.9 9.4 12/23/18 03:00 Troponin I < 0.012 Impressions: Chest X-Ray 12/23/18 02:16 IMPRESSION: Small left effusion. Assessment and Plan - Diagnosis (1) Fracture of humeral head, closed Qualifiers: Encounter type: initial encounter Laterality: left Qualified Code(s): S42.292A - Other displaced fracture of upper end of left humerus, initial encounter for closed fracture Is this a current diagnosis for this admission?: Yes Plan: Nonsurgical management. Continue supportive treatment. (2) Contusion of rib on left side Qualifiers: Encounter type: initial encounter Qualified Code(s): S20.212A - Contusion of left front wall of thorax, initial encounter Is this a current diagnosis for this admission?: Yes Plan: Secondary to recurrent fall. Pain is well controlled. (3) Acute kidney injury Is this a current diagnosis for this admission?: Yes Plan: Resolved with IV fluids. (4) Hyperkalemia Is this a current diagnosis for this admission?: Yes Plan: Improved. She did get lactulose. Likely from JOE[facility] and Bactrim. Repeat potassium is significantly improved at 5.1. Will add Patiromer. (5) Hyponatremia Is this a current diagnosis for this admission?: Yes Plan: Improved with IV fluids. - Time Time Spent with patient: 15-24 minutes
[2018-12-25] MEDS: PATIROMER 8.4 GM SUSP PACKET PO SCH (17:25)
[2018-12-25] MEDS: QUETIAPINE FUMARATE 25 MG TABLET PO SCH (21:26)
[2018-12-25] MEDS: ATORVASTATIN CALCIUM 40 MG TABLET PO SCH (22:28)
[2018-12-25] MEDS: ACETAMINOPHEN 325 MG TABLET PO PRN (22:30)
[2018-12-26] MEDS: HEPARIN SOD (PORCINE) 5,000 UNIT/ML 1 ML SYRINGE SUBCUT SCH ×2 (05:30→17:48)
[2018-12-26 06:00] LABS: ANION GAP 9 (5-19); BLOOD UREA NITROGEN 21 mg/dL (7-20); CALCIUM 8.9 mg/dL (8.4-10.2); CARBON DIOXIDE 19 mmol/L (22-30); CHLORIDE 111 mmol/L (98-107); GLUCOSE 97 mg/dL (75-110); SODIUM 139.1 mmol/L (137-145)
[2018-12-26] MEDS: IPRATROPIUM/ALBUTEROL 0.5-2.5 MG/3 ML AMPUL NEB SCH ×2 (08:17→19:31)
[2018-12-26] MEDS ORDERED: (PENDING PHARMACY ID) (Telmisartan [Micardis 40 Mg Tablet] 40 MG) PO SCH (10:00)
[2018-12-26] MEDS ORDERED: (PENDING PHARMACY ID) (Rivastigmine Tartrate [Rivastigmine] 3 MG) PO SCH (10:00)
[2018-12-26] MEDS ORDERED: (PENDING PHARMACY ID) (Memantine Hcl [Memantine Hcl Er] 28 MG) PO SCH (10:00)
[2018-12-26] MEDS ORDERED: (PENDING PHARMACY ID) (Lactobacillus Acidophilus [Acidophilus] 1 TAB) PO SCH (10:00)
[2018-12-26] MEDS: LOSARTAN POTASSIUM 50 MG TABLET PO SCH (11:35)
[2018-12-26] MEDS: CITALOPRAM HYDROBROMIDE 20 MG TABLET PO SCH (11:35)
[2018-12-26] MEDS: CHOLECALCIFEROL (D3) 1,000 UNIT TABLET PO SCH (11:35)
[2018-12-26] MEDS: CYANOCOBALAMIN (VITAMIN B-12) 1,000 MCG TABLET PO SCH (11:35)
[2018-12-26] MEDS: ASPIRIN 81 MG TABLET, ENT COATED PO SCH (11:35)
[2018-12-26] MEDS: CARVEDILOL 12.5 MG TABLET PO SCH ×2 (11:36→22:36)
[2018-12-26] MEDS: DOCUSATE SODIUM 100 MG CAPSULE PO SCH ×2 (11:36→17:48)
[2018-12-26] MEDS: LACTOBACILLUS ACIDOPHILUS 250 MG TAB PO SCH (11:36)
[2018-12-26] MEDS: RIVASTIGMINE TARTRATE 1.5 MG CAPSULE PO SCH ×2 (11:36→17:48)
[2018-12-26] MEDS: FLUTICASONE NASAL SPRAY 50 MCG/SPRY 120 SPRAY/16 GM NAREB SCH (11:37)
--- NOTE | 2018-12-26 11:41 | PDOC PROGRESS REPORT ---
Subjective Progress Note for:: 12/26/18 Subjective:: 83 year old female with a past medical history of advanced dementia, depression, hypertension, osteoarthritis, and recurrent urinary tract infection. Patient presented to the emergency room 5 days ago after a fall with scalp hematoma and rib contusion discharged home to return the following day after another fall. She diagnosed with an arm contusion and concussion and discharged on Ultram. She is subsequently had poor pain control, generalized weakness and poor p.o. intake prompting reevaluation the emergency room where a CT chest reveals left humeral fracture and left pleural effusion, labs reveal a 2 unit drop in hemoglobin over 5 days, hyponatremia 128 and hyperkalemia of 6 with peaked T waves. Patient was admitted early this morning. On encounter, daughter is in the bedside. Patient appears comfortable and pain is well controlled with morphine. She is awake and is oriented to person and place. Discussed plan of care for evaluation by physical therapist and possible need for placement due to her recurrent falls. Daughter is amenable to possible placement if needed. Patient's daughter did express that patient has been started by PCP on Bactrim due to her recurrent UTI. 12/24: She appears to be in her baseline mentation but occasionally sundowns from her dementia. She has been very talkative this morning. PT has evaluated patient and has recommended SNF/short term rehab. Agree as patient does have advancing dementia and recurrent falls and has sustained a humeral fracture this time. Will consult discharge planning to initiate placement process. 12/25: No acute event overnight. She is at her baseline. Pain is well controlled. Awaiting for placement. 12/26/[id number]-old female with history of advanced dementia, depression, h ypertension, osteoarthritis, recurrent UTI admitted for poor oral intake, hyperkalemia, hyponatremia, drop in hemoglobin on the work-up indicates left humeral fracture, left pleural effusion. Patient waiting for the placement. Patient is comfortably in the bed because of advanced dementia unable to communicate properly. No acute events in the last 24 hours, patient is afebrile. Reason For Visit: BRONCHITIS, HYPERKALEMIA, HYPONATREMIA, HUMERAL FX Physical Exam Vital Signs: Temp Pulse Resp BP Pulse Ox 97.8 F 74 12 144/66 H 93 12/26/18 07:44 12/26/18 08:17 12/26/18 08:17 12/26/18 07:44 12/26/18 08:17 Intake & Output 12/25/18 12/26/18 12/27/18 06:59 06:59 06:59 Intake Total 797 1961 1000 Balance 797 1961 1000 Weight 69.2 kg 69.2 kg General appearance: PRESENT: no acute distress, well-developed Head exam: PRESENT: atraumatic Eye exam: PRESENT: PERRLA Mouth exam: PRESENT: dry mucosa Teeth exam: PRESENT: poor dentation Neck exam: ABSENT: carotid bruit, JVD, lymphadenopathy, thyromegaly Respiratory exam: PRESENT: decreased breath sounds Cardiovascular exam: PRESENT: tachycardia GI/Abdominal exam: PRESENT: normal bowel sounds, soft. ABSENT: distended, guarding, mass, organolmegaly, rebound, tenderness Rectal exam: PRESENT: deferred Neurological exam: PRESENT: alert, awake, oriented to person, oriented to place, oriented to time, oriented to situation, CN II-XII grossly intact. ABSENT: motor sensory deficit Psychiatric exam: PRESENT: appropriate affect, normal mood. ABSENT: homicidal ideation, suicidal ideation Results Laboratory Results: 12/24/18 04:49 12/26/18 05:06 12/26/18 05:06 Sodium 139.1 Potassium 5.0 Chloride 111 H Carbon Dioxide 19 L Anion Gap 9 BUN 21 H Creatinine 0.87 Est GFR ( Amer) > 60 Est GFR (Non-Af Amer) > 60 Glucose 97 Calcium 8.9 12/23/18 03:00 Troponin I < 0.012 Impressions: Chest X-Ray 12/23/18 02:16 IMPRESSION: Small left effusion. Assessment and Plan - Diagnosis (1) Hyperkalemia Is this a current diagnosis for this admission?: Yes Plan: Improved. She did get lactulose. Likely from JOEY and Bactrim. Repeat potassium is significantly improved at 5.1. Will add Patiromer. 12/26/2018-serum potassium level is 5.0 today. Presently on [place] plan is to continue the present medication and recheck the labs tomorrow. (2) Acute kidney injury Is this a current diagnosis for this admission?: Yes Plan: Resolved with IV fluids. 12/26/2018-patient came in with acute kidney injury most likely secondary to prerenal causes resolved with IV fluids. Creatinine today is 0.87. (3) Fracture of humeral head, closed Qualifiers: Encounter type: initial encounter Laterality: left Qualified Code(s): S42.292A - Other displaced fracture of upper end of left humerus, initial encounter for closed fracture Is this a current diagnosis for this admission?: Yes Plan: Nonsurgical management. Continue supportive treatment. 12/26/2018-patient was admitted with fracture of the humeral head and conservative management. Plan is to continue the present management. (4) Hyponatremia Is this a current diagnosis for this admission?: Yes Plan: Improved with IV fluids. 12/27/2018-patient came in with hyponatremia today serum sodium is 139 hyponatremia is resolved. Most likely secondary to poor oral intake. (5) Dementia Qualifiers: Dementia type: unspecified type Dementia behavioral disturbance: without behavioral disturbance Qualified Code(s): F03.90 - Unspecified dementia without behavioral disturbance Is this a current diagnosis for this admission?: Yes Plan: Poor candidate for aggressive measures, concern for intractable pain requiring narcotics with sedation further complicating functional state. Anticipate poor outcome despite aggressive measures, consider hospice consult if not improving in 48 hours. 12/27/2018-patient has history of advanced dementia. Plan is to continue home medications. - Time Time Spent with patient: 25-34 minutes Medications reviewed and adjusted accordingly: Yes Anticipated discharge: SNF
[2018-12-26] MEDS: PATIROMER 8.4 GM SUSP PACKET PO SCH (17:44)
[2018-12-26] MEDS: QUETIAPINE FUMARATE 25 MG TABLET PO SCH (22:33)
[2018-12-26] MEDS: ATORVASTATIN CALCIUM 40 MG TABLET PO SCH (22:37)
[2018-12-26] MEDS: ACETAMINOPHEN 325 MG TABLET PO PRN (22:39)
[2018-12-27] MEDS: HEPARIN SOD (PORCINE) 5,000 UNIT/ML 1 ML SYRINGE SUBCUT SCH ×2 (06:11→18:09)
[2018-12-27 07:26] LABS: HEMATOCRIT 24.7 % (36.0-47.0); HEMOGLOBIN 8.4 g/dL (12.0-15.5); MEAN CORPUSCULAR HEMOGLOBIN 32.2 pg (27.0-33.4); MEAN CORPUSCULAR HGB CONC 34.1 g/dL (32.0-36.0); MEAN CORPUSCULAR VOLUME 94 fl (80-97); RED BLOOD COUNT 2.62 10^6/uL (3.72-5.28); RED CELL DISTRIBUTION WIDTH 15.6 % (11.5-14.0); WHITE BLOOD COUNT 7.1 10^3/uL (4.0-10.5)
[2018-12-27] MEDS: IPRATROPIUM/ALBUTEROL 0.5-2.5 MG/3 ML AMPUL NEB SCH ×2 (07:32→21:40)
[2018-12-27 07:49] LABS: ALANINE AMINOTRANSFERASE 35 U/L (9-52); ALBUMIN 2.7 g/dL (3.5-5.0); ALKALINE PHOSPHATASE 82 U/L (38-126); ANION GAP 11 (5-19); ASPARTATE AMINO TRANSFERASE 28 U/L (14-36); BILIRUBIN,DIRECT 0.3 mg/dL (0.0-0.4); BILIRUBIN,TOTAL 0.5 mg/dL (0.2-1.3); BLOOD UREA NITROGEN 25 mg/dL (7-20); CALCIUM 8.8 mg/dL (8.4-10.2); CARBON DIOXIDE 19 mmol/L (22-30); CHLORIDE 108 mmol/L (98-107); GLUCOSE 94 mg/dL (75-110); POTASSIUM 4.9 mmol/L (3.6-5.0); SODIUM 138.2 mmol/L (137-145)
[2018-12-27 08:04] LABS: ABSOLUTE MONOCYTES # (MANUAL) 0.9 10^3/uL (0.1-1.4); ABSOLUTE NEUTROPHILS# (MANUAL) 3.7 10^3/uL (1.7-8.2); BAND NEUTROPHILS % (MANUAL) 1 % (3-5); BASOPHILS % (MANUAL) 1 % (0-2); EOSINOPHILS % (MANUAL) 6 % (0-6); LYMPHOCYTES % (MANUAL) 28 % (13-45); METAMYELOCYTES % (MANUAL) 1 % (0); MONOCYTES % (MANUAL) 13 % (3-13); SEGMENTED NEUTROPHILS % (MAN) 50 % (42-78); TOTAL CELLS COUNTED 100
[2018-12-27 08:05] LABS: ANISOCYTOSIS SLIGHT; OVALOCYTES SLIGHT; PLATELET CLUMPS PRESENT; PLATELET COMMENT ADEQUATE; PLATELET COUNT 305 10^3/uL (150-450); POIKILOCYTOSIS SLIGHT; POLYCHROMASIA SLIGHT
[2018-12-27] MEDS: ASPIRIN 81 MG TABLET, ENT COATED PO SCH (09:37)
[2018-12-27] MEDS: CARVEDILOL 12.5 MG TABLET PO SCH ×2 (09:37→21:24)
[2018-12-27] MEDS: LOSARTAN POTASSIUM 50 MG TABLET PO SCH (09:37)
[2018-12-27] MEDS: CITALOPRAM HYDROBROMIDE 20 MG TABLET PO SCH (09:37)
[2018-12-27] MEDS: CYANOCOBALAMIN (VITAMIN B-12) 1,000 MCG TABLET PO SCH (09:37)
[2018-12-27] MEDS: DOCUSATE SODIUM 100 MG CAPSULE PO SCH ×2 (09:37→18:09)
[2018-12-27] MEDS: LACTOBACILLUS ACIDOPHILUS 250 MG TAB PO SCH (09:37)
[2018-12-27] MEDS: CHOLECALCIFEROL (D3) 1,000 UNIT TABLET PO SCH (09:37)
[2018-12-27] MEDS: FLUTICASONE NASAL SPRAY 50 MCG/SPRY 120 SPRAY/16 GM NAREB SCH (09:38)
[2018-12-27] MEDS: RIVASTIGMINE TARTRATE 1.5 MG CAPSULE PO SCH ×2 (09:38→18:09)
--- NOTE | 2018-12-27 11:48 | PDOC PROGRESS REPORT ---
Subjective Subjective:: 83 year old female with a past medical history of advanced dementia, depression, hypertension, osteoarthritis, and recurrent urinary tract infection. Patient presented to the emergency room 5 days ago after a fall with scalp hematoma and rib contusion discharged home to return the following day after another fall. She diagnosed with an arm contusion and concussion and discharged on Ultram. She is subsequently had poor pain control, generalized weakness and poor p.o. intake prompting reevaluation the emergency room where a CT chest reveals left humeral fracture and left pleural effusion, labs reveal a 2 unit drop in hemoglobin over 5 days, hyponatremia 128 and hyperkalemia of 6 with peaked T waves. Patient was admitted early this morning. On encounter, daughter is in the bedside. Patient appears comfortable and pain is well controlled with morphine. She is awake and is oriented to person and place. Discussed plan of care for evaluation by physical therapist and possible need for placement due to her recurrent falls. Daughter is amenable to possible placement if needed. Patient's daughter did express that patient has been started by PCP on Bactrim due to her recurrent UTI. 12/24: She appears to be in her baseline mentation but occasionally sundowns from her dementia. She has been very talkative this morning. PT has evaluated patient and has recommended SNF/short term rehab. Agree as patient does have advancing dementia and recurrent falls and has sustained a humeral fracture this time. Will consult discharge planning to initiate placement process. 12/25: No acute event overnight. She is at her baseline. Pain is well controlled. Awaiting for placement. 12/26/[id number]-dmmq-old female with history of advanced dementia, depression, hypertension, osteoarthritis, recurrent UTI admitted for poor oral intake, hyperkalemia, hyponatremia, drop in hemoglobin on the work-up indicates left hum eral fracture, left pleural effusion. Patient waiting for the placement. Patient is comfortably in the bed because of advanced dementia unable to communicate properly. No acute events in the last 24 hours, patient is afebrile. 12/27/[id number]-iyfg-old female with advanced dementia, hypertension, depression, osteoarthritis, recurrent UTI admitted for poor oral intake, hyponatremia, hyperkalemia she also found to have left humeral fracture and conservative management and left pleural effusion. She is waiting for placement. Afebrile asymptomatic. Reason For Visit: BRONCHITIS, HYPERKALEMIA, HYPONATREMIA, HUMERAL FX Physical Exam Vital Signs: Temp Pulse Resp BP Pulse Ox 98.6 F 77 20 129/37 H 91 L 12/27/18 07:38 12/27/18 07:38 12/27/18 07:38 12/27/18 07:38 12/27/18 09:22 Intake & Output 12/26/18 12/27/18 12/28/18 06:59 06:59 06:59 Intake Total 1960 1200 Output Total 325 Balance 1960 875 Weight 69.2 kg 68.8 kg General appearance: PRESENT: no acute distress, cooperative, obese Head exam: PRESENT: atraumatic Eye exam: PRESENT: PERRLA Mouth exam: PRESENT: moist, tongue midline Neck exam: ABSENT: carotid bruit, JVD, lymphadenopathy, thyromegaly Respiratory exam: PRESENT: decreased breath sounds Cardiovascular exam: PRESENT: tachycardia GI/Abdominal exam: PRESENT: normal bowel sounds, soft. ABSENT: distended, guarding, mass, organolmegaly, rebound, tenderness Rectal exam: PRESENT: deferred Gentrourinary exam: PRESENT: indwelling catheter Extremities exam: PRESENT: full ROM. ABSENT: calf tenderness, clubbing, pedal edema Neurological exam: PRESENT: alert, awake, CN II-XII grossly intact, other - Alert awake and patient has advanced dementia no focal neurological deficits. Psychiatric exam: PRESENT: appropriate affect, normal mood. ABSENT: homicidal ideation, suicidal ideation Results Laboratory Results: 12/27/18 06:31 12/27/18 06:31 12/27/18 12/27/18 06:31 06:31 WBC 7.1 RBC 2.62 L Hgb 8.4 L Hct 24.7 L MCV 94 MCH 32.2 MCHC 34.1 RDW 15.6 H Plt Count 305 Seg Neutrophils % Not Reportable Lymphocytes % Not Reportable Monocytes % Not Reportable Eosinophils % Not Reportable Basophils % Not Reportable Absolute Neutrophils Not Reportable Absolute Lymphocytes Not Reportable Absolute Monocytes Not Reportable Absolute Eosinophils Not Reportable Absolute Basophils Not Reportable Sodium 138.2 Potassium 4.9 Chloride 108 H Carbon Dioxide 19 L Anion Gap 11 BUN 25 H Creatinine 0.84 Est GFR ( Amer) > 60 Est GFR (Non-Af Amer) > 60 Glucose 94 Calcium 8.8 Magnesium 2.0 Total Bilirubin 0.5 AST 28 ALT 35 Alkaline Phosphatase 82 Total Protein 5.0 L Albumin 2.7 L 12/23/18 03:00 Troponin I < 0.012 Impressions: Chest X-Ray 12/23/18 02:16 IMPRESSION: Small left effusion. Assessment and Plan - Diagnosis (1) Hyperkalemia Is this a current diagnosis for this admission?: Yes Plan: Improved. She did get lactulose. Likely from JOEY and Bactrim. Repeat potassium is significantly improved at 5.1. Will add Patiromer. 12/26/2018-serum potassium level is 5.0 today. Presently on Veltassa plan is to continue the present medication and recheck the labs tomorrow. 12/27/2018-patient serum potassium is 4.9 hyperkalemia is resolving. In Veltassa 24.6 g on daily basis. (2) Acute kidney injury Is this a current diagnosis for this admission?: Yes Plan: Resolved with IV fluids. 12/26/2018-patient came in with acute kidney injury most likely secondary to prerenal causes resolved with IV fluids. Creatinine today is 0.87. 12/27/2018-patient came in with acute kidney injury latest serum creatinine is 0.84. JOEY due to prerenal causes resolved. Admission creatinine is 1.28. Her baseline creatinine is around 0.8. (3) Fracture of humeral head, closed Qualifiers: Encounter type: initial encounter Laterality: left Qualified Code(s): S42.292A - Other displaced fracture of upper end of left humerus, initial encounter for closed fracture Is this a current diagnosis for this admission?: Yes (4) Hyponatremia Is this a current diagnosis for this admission?: Yes Plan: Improved with IV fluids. 12/26/2018-patient came in with hyponatremia today serum sodium is 139 hyponatremia is resolved. Most likely secondary to poor oral intake. 12/27/2018-serum potassium today is 138. Hyponatremia resolved. (5) Dementia Qualifiers: Dementia type: unspecified type Dementia behavioral disturbance: without behavioral disturbance Qualified Code(s): F03.90 - Unspecified dementia without behavioral disturbance Is this a current diagnosis for this admission?: Yes - Time Time Spent with patient: 15-24 minutes Medications reviewed and adjusted accordingly: Yes Anticipated discharge: SNF
[2018-12-27] MEDS: PATIROMER 8.4 GM SUSP PACKET PO SCH (18:08)
[2018-12-27] MEDS: QUETIAPINE FUMARATE 25 MG TABLET PO SCH (21:24)
[2018-12-27] MEDS: ATORVASTATIN CALCIUM 40 MG TABLET PO SCH (21:24)
[2018-12-28] MEDS: ACETAMINOPHEN 325 MG TABLET PO PRN ×2 (05:33→17:51)
[2018-12-28] MEDS: HEPARIN SOD (PORCINE) 5,000 UNIT/ML 1 ML SYRINGE SUBCUT SCH ×2 (05:33→17:42)
[2018-12-28 06:38] LABS: HEMATOCRIT 25.3 % (36.0-47.0); HEMOGLOBIN 8.6 g/dL (12.0-15.5); MEAN CORPUSCULAR HEMOGLOBIN 31.8 pg (27.0-33.4); MEAN CORPUSCULAR HGB CONC 34.2 g/dL (32.0-36.0); MEAN CORPUSCULAR VOLUME 93 fl (80-97); PLATELET COUNT 325 10^3/uL (150-450); RED BLOOD COUNT 2.72 10^6/uL (3.72-5.28); WHITE BLOOD COUNT 9.2 10^3/uL (4.0-10.5)
[2018-12-28 06:58] LABS: ALANINE AMINOTRANSFERASE 43 U/L (9-52); ALBUMIN 2.9 g/dL (3.5-5.0); ALKALINE PHOSPHATASE 88 U/L (38-126); ANION GAP 11 (5-19); ASPARTATE AMINO TRANSFERASE 31 U/L (14-36); BILIRUBIN,DIRECT 0.2 mg/dL (0.0-0.4); BILIRUBIN,TOTAL 0.4 mg/dL (0.2-1.3); BLOOD UREA NITROGEN 20 mg/dL (7-20); CALCIUM 9.8 mg/dL (8.4-10.2); CARBON DIOXIDE 21 mmol/L (22-30); CHLORIDE 105 mmol/L (98-107); GLUCOSE 103 mg/dL (75-110); POTASSIUM 4.8 mmol/L (3.6-5.0); SODIUM 137.1 mmol/L (137-145); TOTAL PROTEIN 5.2 g/dL (6.3-8.2)
[2018-12-28 07:36] LABS: ABSOLUTE LYMPHOCYTES# (MANUAL) 1.2 10^3/uL (0.5-4.7); ABSOLUTE MONOCYTES # (MANUAL) 0.3 10^3/uL (0.1-1.4); ABSOLUTE NEUTROPHILS# (MANUAL) 7.3 10^3/uL (1.7-8.2); BASOPHILS % (MANUAL) 0 % (0-2); EOSINOPHILS % (MANUAL) 5 % (0-6); LYMPHOCYTES % (MANUAL) 13 % (13-45); METAMYELOCYTES % (MANUAL) 1 % (0); MONOCYTES % (MANUAL) 3 % (3-13); SEGMENTED NEUTROPHILS % (MAN) 78 % (42-78); TOTAL CELLS COUNTED 100
[2018-12-28 07:38] LABS: ANISOCYTOSIS SLIGHT; OVALOCYTES SLIGHT; PLATELET COMMENT ADEQUATE; POIKILOCYTOSIS SLIGHT; POLYCHROMASIA 1+
[2018-12-28] MEDS: IPRATROPIUM/ALBUTEROL 0.5-2.5 MG/3 ML AMPUL NEB SCH ×2 (09:30→19:54)
[2018-12-28] MEDS: LOSARTAN POTASSIUM 50 MG TABLET PO SCH (10:44)
[2018-12-28] MEDS: CITALOPRAM HYDROBROMIDE 20 MG TABLET PO SCH (10:44)
[2018-12-28] MEDS: DOCUSATE SODIUM 100 MG CAPSULE PO SCH ×2 (10:44→17:42)
[2018-12-28] MEDS: CARVEDILOL 12.5 MG TABLET PO SCH ×2 (10:45→22:07)
[2018-12-28] MEDS: ASPIRIN 81 MG TABLET, ENT COATED PO SCH (10:45)
[2018-12-28] MEDS: LACTOBACILLUS ACIDOPHILUS 250 MG TAB PO SCH (10:45)
[2018-12-28] MEDS: CYANOCOBALAMIN (VITAMIN B-12) 1,000 MCG TABLET PO SCH (10:45)
[2018-12-28] MEDS: RIVASTIGMINE TARTRATE 1.5 MG CAPSULE PO SCH ×2 (10:45→17:42)
[2018-12-28] MEDS: CHOLECALCIFEROL (D3) 1,000 UNIT TABLET PO SCH (10:45)
[2018-12-28] MEDS: FLUTICASONE NASAL SPRAY 50 MCG/SPRY 120 SPRAY/16 GM NAREB SCH (10:46)
--- NOTE | 2018-12-28 11:25 | PDOC PROGRESS REPORT ---
Subjective Progress Note for:: 12/28/18 Subjective:: 83 year old female with a past medical history of advanced dementia, depression, hypertension, osteoarthritis, and recurrent urinary tract infection. Patient presented to the emergency room 5 days ago after a fall with scalp hematoma and rib contusion discharged home to return the following day after another fall. She diagnosed with an arm contusion and concussion and discharged on Ultram. She is subsequently had poor pain control, generalized weakness and poor p.o. intake prompting reevaluation the emergency room where a CT chest reveals left humeral fracture and left pleural effusion, labs reveal a 2 unit drop in hemoglobin over 5 days, hyponatremia 128 and hyperkalemia of 6 with peaked T waves. Patient was admitted early this morning. On encounter, daughter is in the bedside. Patient appears comfortable and pain is well controlled with morphine. She is awake and is oriented to person and place. Discussed plan of care for evaluation by physical therapist and possible need for placement due to her recurrent falls. Daughter is amenable to possible placement if needed. Patient's daughter did express that patient has been started by PCP on Bactrim due to her recurrent UTI. 12/24: She appears to be in her baseline mentation but occasionally sundowns from her dementia. She has been very talkative this morning. PT has evaluated patient and has recommended SNF/short term rehab. Agree as patient does have advancing dementia and recurrent falls and has sustained a humeral fracture this time. Will consult discharge planning to initiate placement process. 12/25: No acute event overnight. She is at her baseline. Pain is well controlled. Awaiting for placement. 12/26/[id number]-jaqu-old female with history of advanced dementia, depression, h ypertension, osteoarthritis, recurrent UTI admitted for poor oral intake, hyperkalemia, hyponatremia, drop in hemoglobin on the work-up indicates left humeral fracture, left pleural effusion. Patient waiting for the placement. Patient is comfortably in the bed because of advanced dementia unable to communicate properly. No acute events in the last 24 hours, patient is afebrile. 12/27/[id number]-mmxo-old female with advanced dementia, hypertension, depression, osteoarthritis, recurrent UTI admitted for poor oral intake, hyponatremia, hyperkalemia she also found to have left humeral fracture and conservative management and left pleural effusion. She is waiting for placement. Afebrile asymptomatic. 12/28/[id number]-tjrh-old female admitted for bronchitis, hyperkalemia poor oral intake and hyponatremia found to have a left humeral fracture and x-ray shows left pleural effusion waiting for the placement in my opinion. Afebrile. I spoke to the patient's daughter she said somebody told her she has a right diaphragm paralysis based on the investigations done as an outpatient she wants me to talk to the radiologist about this issue and I did spoke to Dr. Rodas and her recommendation is to repeat chest x-ray two-view today. And Dr. Villaseñor also told me she did not see any obvious right diaphragm paralysis. Patient pulse ox today is 93% on room air. Comfortablly in the sleeping bed. Reason For Visit: BRONCHITIS, HYPERKALEMIA, HYPONATREMIA, HUMERAL FX Physical Exam Vital Signs: Temp Pulse Resp BP Pulse Ox 98.1 F 87 15 135/60 H 93 12/28/18 03:07 12/28/18 09:30 12/28/18 09:30 12/28/18 03:07 12/28/18 09:30 Intake & Output 12/27/18 12/28/18 12/29/18 06:59 06:59 06:59 Intake Total 1200 1140 Output Total 325 1500 Balance 875 -360 Weight 68.8 kg 68.8 kg General appearance: PRESENT: no acute distress, cooperative Head exam: PRESENT: atraumatic Eye exam: PRESENT: PERRLA Mouth exam: PRESENT: moist, tongue midline Teeth exam: PRESENT: poor dentation Neck exam: ABSENT: carotid bruit, JVD, lymphadenopathy, thyromegaly Respiratory exam: PRESENT: decreased breath sounds Cardiovascular exam: PRESENT: RRR. ABSENT: diastolic murmur, rubs, systolic murmur GI/Abdominal exam: PRESENT: normal bowel sounds, soft. ABSENT: distended, guarding, mass, organolmegaly, rebound, tenderness Rectal exam: PRESENT: deferred Neurological exam: PRESENT: alert, awake, oriented to person, oriented to place, oriented to time, oriented to situation, CN II-XII grossly intact. ABSENT: motor sensory deficit Psychiatric exam: PRESENT: appropriate affect, normal mood. ABSENT: homicidal ideation, suicidal ideation Skin exam: PRESENT: dry, intact, warm. ABSENT: cyanosis, rash Results Laboratory Results: 12/28/18 05:59 12/28/18 05:59 12/28/18 12/28/18 05:59 05:59 WBC 9.2 RBC 2.72 L Hgb 8.6 L Hct 25.3 L MCV 93 MCH 31.8 MCHC 34.2 RDW 15.0 H Plt Count 325 Seg Neutrophils % Not Reportable Lymphocytes % Not Reportable Monocytes % Not Reportable Eosinophils % Not Reportable Basophils % Not Reportable Absolute Neutrophils Not Reportable Absolute Lymphocytes Not Reportable Absolute Monocytes Not Reportable Absolute Eosinophils Not Reportable Absolute Basophils Not Reportable Sodium 137.1 Potassium 4.8 Chloride 105 Carbon Dioxide 21 L Anion Gap 11 BUN 20 Creatinine 0.65 Est GFR ( Amer) > 60 Est GFR (Non-Af Amer) > 60 Glucose 103 Calcium 9.8 Total Bilirubin 0.4 AST 31 ALT 43 Alkaline Phosphatase 88 Total Protein 5.2 L Albumin 2.9 L 12/23/18 03:00 Troponin I < 0.012 Impressions: Chest X-Ray 12/23/18 02:16 IMPRESSION: Small left effusion. Assessment and Plan - Diagnosis (1) Hyperkalemia Is this a current diagnosis for this admission?: Yes Plan: Improved. She did get lactulose. Likely from JOEY and Bactrim. Repeat potassium is significantly improved at 5.1. Will add Patiromer. 12/26/2018-serum potassium level is 5.0 today. Presently on Veltassa plan is to continue the present medication and recheck the labs tomorrow. 12/27/2018-patient serum potassium is 4.9 hyperkalemia is resolving. on Veltassa 24.6 g on daily basis. 12/28/2018 patient came in with hyperkalemia today's potassium is 4.8. Presently on Veltassa 24.6 g daily. Plan is to repeat the labs tomorrow. (2) Acute kidney injury Is this a current diagnosis for this admission?: Yes Plan: Resolved with IV fluids. 12/26/2018-patient came in with acute kidney injury most likely secondary to prerenal causes resolved with IV fluids. Creatinine today is 0.87. 12/27/2018-patient came in with acute kidney injury latest serum creatinine is 0.84. JOEY due to prerenal causes resolved. Admission creatinine is 1.28. Her baseline creatinine is around 0.8. 12/28/2018-patient admitted with acute kidney injury her latest creatinine today is 0.65. Baseline creatinine is around 0.8. Acute kidney injury due to p rerenal causes resolved. (3) Fracture of humeral head, closed Qualifiers: Encounter type: initial encounter Laterality: left Qualified Code(s): S42.292A - Other displaced fracture of upper end of left humerus, initial encounter for closed fracture Is this a current diagnosis for this admission?: Yes (4) Hyponatremia Is this a current diagnosis for this admission?: Yes Plan: Improved with IV fluids. 12/26/2018-patient came in with hyponatremia today serum sodium is 139 hyponatremia is resolved. Most likely secondary to poor oral intake. 12/27/2018-serum potassium today is 138. Hyponatremia resolved. 12/28/2018-patient serum sodium is 137 hyponatremia is resolved. (5) Dementia Qualifiers: Dementia type: unspecified type Dementia behavioral disturbance: without behavioral disturbance Qualified Code(s): F03.90 - Unspecified dementia without behavioral disturbance Is this a current diagnosis for this admission?: Yes - Time Time Spent with patient: 15-24 minutes Medications reviewed and adjusted accordingly: Yes Anticipated discharge: SNF
--- NOTE | 2018-12-28 12:52 | RADIOLOGY REPORT (SQ) ---
EXAM DESCRIPTION: CHEST 2 VIEWS COMPLETED DATE/TIME: 12/28/2018 12:06 pm REASON FOR STUDY: shortness of breath/evaluation of rt side diaphragm COMPARISON: 12/23/2018 EXAM PARAMETERS: NUMBER OF VIEWS: two views TECHNIQUE: Digital Frontal and Lateral radiographic views of the chest acquired. RADIATION DOSE: NA LIMITATIONS: none FINDINGS: LUNGS AND PLEURA: There is ill-defined opacification in the retrocardiac area on the left. There is ill-defined opacification posteriorly on the lateral view. MEDIASTINUM AND HILAR STRUCTURES: No masses or contour abnormalities. HEART AND VASCULAR STRUCTURES: Heart normal size. No evidence for failure. BONES: No acute findings. HARDWARE: None in the chest. OTHER: No other significant finding. IMPRESSION: Cannot exclude a left lower lobe pneumonia. TECHNICAL DOCUMENTATION: JOB ID: [id number] [employer]- All Rights Reserved Reading location - IP/workstation name: [email or web address]
[2018-12-28] MEDS: PATIROMER 8.4 GM SUSP PACKET PO SCH (17:38)
[2018-12-28] MEDS: QUETIAPINE FUMARATE 25 MG TABLET PO SCH (22:03)
[2018-12-28] MEDS: ATORVASTATIN CALCIUM 40 MG TABLET PO SCH (22:07)
[2018-12-29] MEDS: HEPARIN SOD (PORCINE) 5,000 UNIT/ML 1 ML SYRINGE SUBCUT SCH ×2 (06:33→18:05)
[2018-12-29] MEDS: IPRATROPIUM/ALBUTEROL 0.5-2.5 MG/3 ML AMPUL NEB SCH ×2 (08:04→19:44)
[2018-12-29] MEDS: CITALOPRAM HYDROBROMIDE 20 MG TABLET PO SCH (09:25)
[2018-12-29] MEDS: LACTOBACILLUS ACIDOPHILUS 250 MG TAB PO SCH (09:25)
[2018-12-29] MEDS: DOCUSATE SODIUM 100 MG CAPSULE PO SCH ×2 (09:26→18:05)
[2018-12-29] MEDS: LOSARTAN POTASSIUM 50 MG TABLET PO SCH (09:26)
[2018-12-29] MEDS: CARVEDILOL 12.5 MG TABLET PO SCH ×2 (09:26→22:08)
[2018-12-29] MEDS: ASPIRIN 81 MG TABLET, ENT COATED PO SCH (09:26)
[2018-12-29] MEDS: FLUTICASONE NASAL SPRAY 50 MCG/SPRY 120 SPRAY/16 GM NAREB SCH (09:27)
[2018-12-29] MEDS: CHOLECALCIFEROL (D3) 1,000 UNIT TABLET PO SCH (09:27)
[2018-12-29] MEDS: RIVASTIGMINE TARTRATE 1.5 MG CAPSULE PO SCH ×2 (09:27→18:05)
[2018-12-29] MEDS: CYANOCOBALAMIN (VITAMIN B-12) 1,000 MCG TABLET PO SCH (09:27)
--- NOTE | 2018-12-29 12:19 | PDOC PROGRESS REPORT ---
Subjective Progress Note for:: 12/29/18 Subjective:: 83 year old female with a past medical history of advanced dementia, depression, hypertension, osteoarthritis, and recurrent urinary tract infection. Patient presented to the emergency room 5 days ago after a fall with scalp hematoma and rib contusion discharged home to return the following day after another fall. She diagnosed with an arm contusion and concussion and discharged on Ultram. She is subsequently had poor pain control, generalized weakness and poor p.o. intake prompting reevaluation the emergency room where a CT chest reveals left humeral fracture and left pleural effusion, labs reveal a 2 unit drop in hemoglobin over 5 days, hyponatremia 128 and hyperkalemia of 6 with peaked T waves. Patient was admitted early this morning. On encounter, daughter is in the bedside. Patient appears comfortable and pain is well controlled with morphine. She is awake and is oriented to person and place. Discussed plan of care for evaluation by physical therapist and possible need for placement due to her recurrent falls. Daughter is amenable to possible placement if needed. Patient's daughter did express that patient has been started by PCP on Bactrim due to her recurrent UTI. 12/24: She appears to be in her baseline mentation but occasionally sundowns from her dementia. She has been very talkative this morning. PT has evaluated patient and has recommended SNF/short term rehab. Agree as patient does have advancing dementia and recurrent falls and has sustained a humeral fracture this time. Will consult discharge planning to initiate placement process. 12/25: No acute event overnight. She is at her baseline. Pain is well controlled. Awaiting for placement. 12/26/[id number]-drcv-old female with history of advanced dementia, depression, h ypertension, osteoarthritis, recurrent UTI admitted for poor oral intake, hyperkalemia, hyponatremia, drop in hemoglobin on the work-up indicates left humeral fracture, left pleural effusion. Patient waiting for the placement. Patient is comfortably in the bed because of advanced dementia unable to communicate properly. No acute events in the last 24 hours, patient is afebrile. 12/27/[id number]-tpvm-old female with advanced dementia, hypertension, depression, osteoarthritis, recurrent UTI admitted for poor oral intake, hyponatremia, hyperkalemia she also found to have left humeral fracture and conservative management and left pleural effusion. She is waiting for placement. Afebrile asymptomatic. 12/28/[id number]-figt-old female admitted for bronchitis, hyperkalemia poor oral intake and hyponatremia found to have a left humeral fracture and x-ray shows left pleural effusion waiting for the placement in my opinion. Afebrile. I spoke to the patient's daughter she said somebody told her she has a right diaphragm paralysis based on the investigations done as an outpatient she wants me to talk to the radiologist about this issue and I did spoke to Dr. Rodas and her recommendation is to repeat chest x-ray two-view today. And Dr. Villaseñor also told me she did not see any obvious right diaphragm paralysis. Patient pulse ox today is 93% on room air. Comfortablly in the sleeping bed. 12/29/[id number]-cypb-old female admitted for hyperkalemia, poor oral intake, hyponatremia and acute bronchitis. Found to have left pleural effusion and a left humeral fracture. 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 Villaseñor and we did 2 view follow-up x-rays there is no obvious right or diaphragmatic heart failure and patient pulse ox is 95% on room air today. Comfortable in the bed because of advanced dementia not able to communicate much. Not in distress. Reason For Visit: BRONCHITIS, HYPERKALEMIA, HYPONATREMIA, HUMERAL FX Physical Exam Vital Signs: Temp Pulse Resp BP Pulse Ox 98 F 83 15 143/67 H 93 12/29/18 08:00 12/29/18 08:04 12/29/18 08:04 12/29/18 08:00 12/29/18 08:04 Intake & Output 12/28/18 12/29/18 12/30/18 06:59 06:59 06:59 Intake Total 1140 1072 Output Total 1500 2024 Balance -360 -953 Weight 68.8 kg 69.8 kg General appearance: PRESENT: no acute distress, obese Head exam: PRESENT: atraumatic Eye exam: PRESENT: PERRLA Mouth exam: PRESENT: moist, tongue midline Teeth exam: PRESENT: poor dentation Neck exam: ABSENT: carotid bruit, JVD, lymphadenopathy, thyromegaly Respiratory exam: PRESENT: decreased breath sounds Cardiovascular exam: PRESENT: tachycardia GI/Abdominal exam: PRESENT: normal bowel sounds, soft. ABSENT: distended, guarding, mass, organolmegaly, rebound, tenderness Rectal exam: PRESENT: deferred Extremities exam: PRESENT: full ROM. ABSENT: calf tenderness, clubbing, pedal edema Neurological exam: PRESENT: alert, awake, CN II-XII grossly intact, other - pt has a dementia. Results Laboratory Results: 12/28/18 05:59 12/28/18 05:59 12/23/18 03:00 Troponin I < 0.012 Impressions: Chest X-Ray 12/28/18 00:00 IMPRESSION: Cannot exclude a left lower lobe pneumonia. Assessment and Plan - Diagnosis (1) Hyperkalemia Is this a current diagnosis for this admission?: Yes Plan: Improved. She did get lactulose. Likely from JOEY and Bactrim. Repeat potassium is significantly improved at 5.1. Will add Patiromer. 12/26/2018-serum potassium level is 5.0 today. Presently on Veltassa plan is to continue the present medication and recheck the labs tomorrow. 12/27/2018-patient serum potassium is 4.9 hyperkalemia is resolving. on Veltassa 24.6 g on daily basis. 12/28/2018 patient came in with hyperkalemia today's potassium is 4.8. Presently on Veltassa 24.6 g daily. Plan is to repeat the labs tomorrow. 12/29/2018-patient's serum potassium is 4.8 today. Presently on Veltassa. Plan to recheck the labs tomorrow. (2) Acute kidney injury Is this a current diagnosis for this admission?: Yes Plan: Resolved with IV fluids. 12/26/2018-patient came in with acute kidney injury most likely secondary to prerenal causes resolved with IV fluids. Creatinine today is 0.87. 12/27/2018-patient came in with acute kidney injury latest serum creatinine is 0.84. JOEY due to prerenal causes resolved. Admission creatinine is 1.28. Her baseline creatinine is around 0.8. 12/28/2018-patient admitted with acute kidney injury her latest creatinine today is 0.65. Baseline creatinine is around 0.8. Acute kidney injury due to prerenal causes resolved. 12/29/2018-patient admitted with acute kidney injury latest creatinine is 0.65. Acute kidney injury secondary to prerenal causes resolved. (3) Fracture of humeral head, closed Qualifiers: Encounter type: initial encounter Laterality: left Qualified Code(s): S42.292A - Other displaced fracture of upper end of left humerus, initial encounter for closed fracture Is this a current diagnosis for this admission?: Yes Plan: Nonsurgical management. Continue supportive treatment. 12/26/2018-patient was admitted with fracture of the humeral head and conserva tive management. Plan is to continue the present management. (4) Hyponatremia Is this a current diagnosis for this admission?: Yes Plan: Improved with IV fluids. 12/26/2018-patient came in with hyponatremia today serum sodium is 139 hyponatremia is resolved. Most likely secondary to poor oral intake. 12/27/2018-serum potassium today is 138. Hyponatremia resolved. 12/28/2018-patient serum sodium is 137 hyponatremia is resolved. 12/29/2018-latest chest serum sodium is 137. Hyponatremia is resolved. (5) Dementia Qualifiers: Dementia type: unspecified type Dementia behavioral disturbance: without behavioral disturbance Qualified Code(s): F03.90 - Unspecified dementia without behavioral disturbance Is this a current diagnosis for this admission?: Yes - Time Time Spent with patient: 15-24 minutes Medications reviewed and adjusted accordingly: Yes Anticipated discharge: Home
[2018-12-29] MEDS: PATIROMER 8.4 GM SUSP PACKET PO SCH (17:42)
[2018-12-29] MEDS: MELATONIN 1 MG TABLET PO SCH (22:08)
[2018-12-29] MEDS: ATORVASTATIN CALCIUM 40 MG TABLET PO SCH (22:08)
[2018-12-30] MEDS: HEPARIN SOD (PORCINE) 5,000 UNIT/ML 1 ML SYRINGE SUBCUT SCH ×2 (05:16→18:30)
[2018-12-30] MEDS: IPRATROPIUM/ALBUTEROL 0.5-2.5 MG/3 ML AMPUL NEB SCH ×2 (08:27→20:54)
[2018-12-30] MEDS: LACTOBACILLUS ACIDOPHILUS 250 MG TAB PO SCH (09:09)
[2018-12-30] MEDS: DOCUSATE SODIUM 100 MG CAPSULE PO SCH ×2 (09:09→18:29)
[2018-12-30] MEDS: ASPIRIN 81 MG TABLET, ENT COATED PO SCH (09:09)
[2018-12-30] MEDS: CITALOPRAM HYDROBROMIDE 20 MG TABLET PO SCH (09:09)
[2018-12-30] MEDS: LOSARTAN POTASSIUM 50 MG TABLET PO SCH (09:09)
[2018-12-30] MEDS: CHOLECALCIFEROL (D3) 1,000 UNIT TABLET PO SCH (09:09)
[2018-12-30] MEDS: CARVEDILOL 12.5 MG TABLET PO SCH ×2 (09:09→21:35)
[2018-12-30] MEDS: RIVASTIGMINE TARTRATE 1.5 MG CAPSULE PO SCH ×2 (09:10→18:30)
[2018-12-30] MEDS: FLUTICASONE NASAL SPRAY 50 MCG/SPRY 120 SPRAY/16 GM NAREB SCH (09:10)
--- NOTE | 2018-12-30 10:41 | PDOC PROGRESS REPORT ---
Subjective Progress Note for:: 12/30/18 Subjective:: 83 year old female with a past medical history of advanced dementia, depression, hypertension, osteoarthritis, and recurrent urinary tract infection. Patient presented to the emergency room 5 days ago after a fall with scalp hematoma and rib contusion discharged home to return the following day after another fall. She diagnosed with an arm contusion and concussion and discharged on Ultram. She is subsequently had poor pain control, generalized weakness and poor p.o. intake prompting reevaluation the emergency room where a CT chest reveals left humeral fracture and left pleural effusion, labs reveal a 2 unit drop in hemoglobin over 5 days, hyponatremia 128 and hyperkalemia of 6 with peaked T waves. Patient was admitted early this morning. On encounter, daughter is in the bedside. Patient appears comfortable and pain is well controlled with morphine. She is awake and is oriented to person and place. Discussed plan of care for evaluation by physical therapist and possible need for placement due to her recurrent falls. Daughter is amenable to possible placement if needed. Patient's daughter did express that patient has been started by PCP on Bactrim due to her recurrent UTI. 12/24: She appears to be in her baseline mentation but occasionally sundowns from her dementia. She has been very talkative this morning. PT has evaluated patient and has recommended SNF/short term rehab. Agree as patient does have advancing dementia and recurrent falls and has sustained a humeral fracture this time. Will consult discharge planning to initiate placement process. 12/25: No acute event overnight. She is at her baseline. Pain is well controlled. Awaiting for placement. 12/26/[id number]-ybgf-old female with history of advanced dementia, depression, h ypertension, osteoarthritis, recurrent UTI admitted for poor oral intake, hyperkalemia, hyponatremia, drop in hemoglobin on the work-up indicates left humeral fracture, left pleural effusion. Patient waiting for the placement. Patient is comfortably in the bed because of advanced dementia unable to communicate properly. No acute events in the last 24 hours, patient is afebrile. 12/27/[id number]-iqvx-old female with advanced dementia, hypertension, depression, osteoarthritis, recurrent UTI admitted for poor oral intake, hyponatremia, hyperkalemia she also found to have left humeral fracture and conservative management and left pleural effusion. She is waiting for placement. Afebrile asymptomatic. 12/28/[id number]-pogx-old female admitted for bronchitis, hyperkalemia poor oral intake and hyponatremia found to have a left humeral fracture and x-ray shows left pleural effusion waiting for the placement in my opinion. Afebrile. I spoke to the patient's daughter she said somebody told her she has a right diaphragm paralysis based on the investigations done as an outpatient she wants me to talk to the radiologist about this issue and I did spoke to Dr. Rodas and her recommendation is to repeat chest x-ray two-view today. And Dr. Villaseñor also told me she did not see any obvious right diaphragm paralysis. Patient pulse ox today is 93% on room air. Comfortablly in the sleeping bed. 12/29/[id number]-ajgv-old female admitted for hyperkalemia, poor oral intake, hyponatremia and acute bronchitis. Found to have left pleural effusion and a left humeral fracture. 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 Villaseñor and we did 2 view follow-up x-rays there is no obvious right or diaphragmatic heart failure and patient pulse ox is 95% on room air today. Comfortable in the bed because of advanced dementia not able to communicate much. Not in distress. 12/30/[id number]-ymms-old female admitted with acute bronchitis, poor oral intake, hyponatremia, hyperkalemia also found to have a humeral fracture and conservative management left-sided pleural effusion waiting for placement. No acute events in the last 24 hours. On examination comfortably sleeping in the bed. Unable to maintain good conversation because of advanced dementia. Afebrile. Reason For Visit: BRONCHITIS, HYPERKALEMIA, HYPONATREMIA, HUMERAL FX Physical Exam Vital Signs: Temp Pulse Resp BP Pulse Ox 98.2 F 65 16 119/54 L 94 12/30/18 00:00 12/30/18 08:27 12/30/18 08:27 12/30/18 00:00 12/30/18 08:27 Intake & Output 12/29/18 12/30/18 12/31/18 06:59 06:59 06:59 Intake Total 107 572 Output Total 9 8229 Balance -698 -6351 Weight 69.8 kg 72.1 kg General appearance: PRESENT: no acute distress, obese Head exam: PRESENT: atraumatic Eye exam: PRESENT: PERRLA Mouth exam: PRESENT: moist, tongue midline Neck exam: ABSENT: carotid bruit, JVD, lymphadenopathy, thyromegaly Respiratory exam: PRESENT: decreased breath sounds Cardiovascular exam: PRESENT: RRR. ABSENT: diastolic murmur, rubs, systolic murmur GI/Abdominal exam: PRESENT: normal bowel sounds, soft. ABSENT: distended, guarding, mass, organolmegaly, rebound, tenderness Rectal exam: PRESENT: deferred Extremities exam: PRESENT: full ROM. ABSENT: calf tenderness, clubbing, pedal edema Neurological exam: PRESENT: alert, awake, oriented to person, oriented to place, oriented to time, oriented to situation, CN II-XII grossly intact. ABSENT: m otor sensory deficit Psychiatric exam: PRESENT: appropriate affect, normal mood. ABSENT: homicidal ideation, suicidal ideation Skin exam: PRESENT: dry, intact, warm. ABSENT: cyanosis, rash Results Laboratory Results: 12/28/18 05:59 12/28/18 05:59 12/23/18 03:00 Troponin I < 0.012 Impressions: Chest X-Ray 12/28/18 00:00 IMPRESSION: Cannot exclude a left lower lobe pneumonia. Assessment and Plan - Diagnosis (1) Hyperkalemia Is this a current diagnosis for this admission?: Yes Plan: Improved. She did get lactulose. Likely from JOEY and Bactrim. Repeat potassium is significantly improved at 5.1. Will add Patiromer. 12/26/2018-serum potassium level is 5.0 today. Presently on Veltassa plan is to continue the present medication and recheck the labs tomorrow. 12/27/2018-patient serum potassium is 4.9 hyperkalemia is resolving. on Veltassa 24.6 g on daily basis. 12/28/2018 patient came in with hyperkalemia today's potassium is 4.8. Presently on Veltassa 24.6 g daily. Plan is to repeat the labs tomorrow. 12/29/2018-patient's serum potassium is 4.8 today. Presently on Veltassa. Plan to recheck the labs tomorrow. 12/30/2018-serum potassium is 4.8 and Veltassa plan is to recheck the labs tomorrow. To continue the present management. (2) Acute kidney injury Is this a current diagnosis for this admission?: Yes Plan: Resolved with IV fluids. 12/26/2018-patient came in with acute kidney injury most likely secondary to prerenal causes resolved with IV fluids. Creatinine today is 0.87. 12/27/2018-patient came in with acute kidney injury latest serum creatinine is 0.84. JOEY due to prerenal causes resolved. Admission creatinine is 1.28. Her baseline creatinine is around 0.8. 12/28/2018-patient admitted with acute kidney injury her latest creatinine today is 0.65. Baseline creatinine is around 0.8. Acute kidney injury due to prerenal causes resolved. 12/29/2018-patient admitted with acute kidney injury latest creatinine is 0.65. Acute kidney injury secondary to prerenal causes resolved. 12/30/2018-latest creatinine is 0.65 acute kidney injury due to prerenal causes resolved. On admission creatinine is 1.28. Baseline creatinine is around 0.8. (3) Fracture of humeral head, closed Qualifiers: Encounter type: initial encounter Laterality: left Qualified Code(s): S42.292A - Other displaced fracture of upper end of left humerus, initial encounter for closed fracture Is this a current diagnosis for this admission?: Yes (4) Hyponatremia Is this a current diagnosis for this admission?: Yes Plan: Improved with IV fluids. 12/26/2018-patient came in with hyponatremia today serum sodium is 139 hyponatremia is resolved. Most likely secondary to poor oral intake. 12/27/2018-serum potassium today is 138. Hyponatremia resolved. 12/28/2018-patient serum sodium is 137 hyponatremia is resolved. 12/29/2018-latest chest serum sodium is 137. Hyponatremia is resolved. 12/30/2018-latest serum sodium is 137 hyponatremia is resolved. (5) Dementia Qualifiers: Dementia type: unspecified type Dementia behavioral disturbance: without behavioral disturbance Qualified Code(s): F03.90 - Unspecified dementia without behavioral disturbance Is this a current diagnosis for this admission?: Yes - Time Time Spent with patient: 15-24 minutes Medications reviewed and adjusted accordingly: Yes Anticipated discharge: SNF
[2018-12-30] MEDS: PATIROMER 8.4 GM SUSP PACKET PO SCH (16:07)
[2018-12-30] MEDS: ACETAMINOPHEN 325 MG TABLET PO PRN (16:09)
[2018-12-30] MEDS: MAG HYDROX/AL HYDROX/SIMETH SUSP 30 ML UDCUP PO PRN (19:46)
[2018-12-30] MEDS: ATORVASTATIN CALCIUM 40 MG TABLET PO SCH (21:36)
[2018-12-30] MEDS: MELATONIN 1 MG TABLET PO SCH (21:36)
[2018-12-31] MEDS: HEPARIN SOD (PORCINE) 5,000 UNIT/ML 1 ML SYRINGE SUBCUT SCH ×2 (05:57→17:02)
[2018-12-31] MEDS: ACETAMINOPHEN 325 MG TABLET PO PRN (06:03)
[2018-12-31] MEDS: IPRATROPIUM/ALBUTEROL 0.5-2.5 MG/3 ML AMPUL NEB SCH (08:11)
[2018-12-31] MEDS: LACTOBACILLUS ACIDOPHILUS 250 MG TAB PO SCH (09:40)
[2018-12-31] MEDS: FLUTICASONE NASAL SPRAY 50 MCG/SPRY 120 SPRAY/16 GM NAREB SCH (09:40)
[2018-12-31] MEDS: CHOLECALCIFEROL (D3) 1,000 UNIT TABLET PO SCH (09:40)
[2018-12-31] MEDS: RIVASTIGMINE TARTRATE 1.5 MG CAPSULE PO SCH ×3 (09:41→17:28)
[2018-12-31] MEDS: DOCUSATE SODIUM 100 MG CAPSULE PO SCH ×2 (09:41→17:02)
[2018-12-31] MEDS: CITALOPRAM HYDROBROMIDE 20 MG TABLET PO SCH (09:41)
[2018-12-31] MEDS: CARVEDILOL 12.5 MG TABLET PO SCH ×2 (09:41→21:25)
[2018-12-31] MEDS: ASPIRIN 81 MG TABLET, ENT COATED PO SCH (09:41)
[2018-12-31] MEDS: LOSARTAN POTASSIUM 50 MG TABLET PO SCH (09:41)
[2018-12-31] MEDS: OXYCODONE-ACETAMINOPHEN 5-325 MG TABLET PO PRN (10:44)
--- NOTE | 2018-12-31 12:01 | PDOC PROGRESS REPORT ---
Subjective Progress Note for:: 01/10/19 Subjective:: 83 year old female with a past medical history of advanced dementia, depression, hypertension, osteoarthritis, and recurrent urinary tract infection. Patient presented to the emergency room 5 days ago after a fall with scalp hematoma and rib contusion discharged home to return the following day after another fall. She diagnosed with an arm contusion and concussion and discharged on Ultram. She is subsequently had poor pain control, generalized weakness and poor p.o. intake prompting reevaluation the emergency room where a CT chest reveals left humeral fracture and left pleural effusion, labs reveal a 2 unit drop in hemoglobin over 5 days, hyponatremia 128 and hyperkalemia of 6 with peaked T waves. Patient was admitted early this morning. On encounter, daughter is in the bedside. Patient appears comfortable and pain is well controlled with morphine. She is awake and is oriented to person and place. Discussed plan of care for evaluation by physical therapist and possible need for placement due to her recurrent falls. Daughter is amenable to possible placement if needed. Patient's daughter did express that patient has been started by PCP on Bactrim due to her recurrent UTI. 12/24: She appears to be in her baseline mentation but occasionally sundowns from her dementia. She has been very talkative this morning. PT has evaluated patient and has recommended SNF/short term rehab. Agree as patient does have advancing dementia and recurrent falls and has sustained a humeral fracture this time. Will consult discharge planning to initiate placement process. 12/25: No acute event overnight. She is at her baseline. Pain is well controlled. Awaiting for placement. 12/26/[id number]-pnro-old female with history of advanced dementia, depression, h ypertension, osteoarthritis, recurrent UTI admitted for poor oral intake, hyperkalemia, hyponatremia, drop in hemoglobin on the work-up indicates left humeral fracture, left pleural effusion. Patient waiting for the placement. Patient is comfortably in the bed because of advanced dementia unable to communicate properly. No acute events in the last 24 hours, patient is afebrile. 12/27/[id number]-fhug-old female with advanced dementia, hypertension, depression, osteoarthritis, recurrent UTI admitted for poor oral intake, hyponatremia, hyperkalemia she also found to have left humeral fracture and conservative management and left pleural effusion. She is waiting for placement. Afebrile asymptomatic. 12/28/[id number]-nwgc-old female admitted for bronchitis, hyperkalemia poor oral intake and hyponatremia found to have a left humeral fracture and x-ray shows left pleural effusion waiting for the placement in my opinion. Afebrile. I spoke to the patient's daughter she said somebody told her she has a right diaphragm paralysis based on the investigations done as an outpatient she wants me to talk to the radiologist about this issue and I did spoke to Dr. Rodas and her recommendation is to repeat chest x-ray two-view today. And Dr. Villaseñor also told me she did not see any obvious right diaphragm paralysis. Patient pulse ox today is 93% on room air. Comfortablly in the sleeping bed. 12/29/[id number]-isqt-old female admitted for hyperkalemia, poor oral intake, hyponatremia and acute bronchitis. Found to have left pleural effusion and a left humeral fracture. 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 Villaseñor and we did 2 view follow-up x-rays there is no obvious right or diaphragmatic heart failure and patient pulse ox is 95% on room air today. Comfortable in the bed because of advanced dementia not able to communicate much. Not in distress. 12/30/[id number]-wlar-old female admitted with acute bronchitis, poor oral intake, hyponatremia, hyperkalemia also found to have a humeral fracture and conservative management left-sided pleural effusion waiting for placement. No acute events in the last 24 hours. On examination comfortably sleeping in the bed. Unable to maintain good conversation because of advanced dementia. Afebrile. 12/31/[id number]-rtmj-old female admitted for acute bronchitis/hyponatremia/hyperkalemia hyponatremia and hyperkalemia resolved. Acute bronchitis resolved. Found to have a humeral fracture and left pleural effusion. These are the findings at the time of admission. Pulse ox is 97% room air today waiting for placement. No acute events in the last 24 hours. patient is on Tylenol for pain this morning complained pain is severe was given a Percocet and pain is better tolerated now. Reason For Visit: BRONCHITIS, HYPERKALEMIA, HYPONATREMIA, HUMERAL FX Physical Exam Vital Signs: Temp Pulse Resp BP Pulse Ox 98.6 F 83 15 120/57 L 93 12/31/18 08:00 12/31/18 08:11 12/31/18 08:11 12/31/18 08:00 12/31/18 08:11 Intake & Output 12/30/18 12/31/18 01/01/19 06:59 06:59 06:59 Intake Total 572 698 Output Total 1617 5815 Balance -1038 -1127 Weight 72.1 kg 71.6 kg General appearance: PRESENT: no acute distress, obese Head exam: PRESENT: atraumatic Eye exam: PRESENT: PERRLA Neck exam: ABSENT: carotid bruit, JVD, lymphadenopathy, thyromegaly Respiratory exam: PRESENT: decreased breath sounds Cardiovascular exam: PRESENT: tachycardia GI/Abdominal exam: PRESENT: normal bowel sounds, soft. ABSENT: distended, guarding, mass, organolmegaly, rebound, tenderness Rectal exam: PRESENT: deferred Extremities exam: PRESENT: full ROM. ABSENT: calf tenderness, clubbing, pedal edema Neurological exam: PRESENT: alert, awake, oriented to person, oriented to place, oriented to time, oriented to situation, CN II-XII grossly intact. ABSENT: motor sensory deficit Psychiatric exam: PRESENT: appropriate affect, normal mood. ABSENT: homicidal ideation, suicidal ideation Results Laboratory Results: 12/28/18 05:59 12/28/18 05:59 12/31/18 10:12 Magnesium 2.0 12/23/18 03:00 Troponin I < 0.012 Impressions: Chest X-Ray 12/28/18 00:00 IMPRESSION: Cannot exclude a left lower lobe pneumonia. Assessment and Plan - Diagnosis (1) Hyperkalemia Is this a current diagnosis for this admission?: Yes Plan: Improved. She did get lactulose. Likely from JOEY and Bactrim. Repeat potassium is significantly improved at 5.1. Will add Patiromer. 12/26/2018-serum potassium level is 5.0 today. Presently on Veltassa plan is to continue the present medication and recheck the labs tomorrow. 12/27/2018-patient serum potassium is 4.9 hyperkalemia is resolving. on Veltassa 24.6 g on daily basis. 12/28/2018 patient came in with hyperkalemia today's potassium is 4.8. Presently on Veltassa 24.6 g daily. Plan is to repeat the labs tomorrow. 12/29/2018-patient's serum potassium is 4.8 today. Presently on Veltassa. Plan to recheck the labs tomorrow. 12/30/2018-serum potassium is 4.8 and Veltassa plan is to recheck the labs tomorrow. To continue the present management. 12/31/2018-patient's latest serum potassium is 4.8 stable. Be having the difficulty in lab draws. Try to do the labs again tomorrow. (2) Acute kidney injury Is this a current diagnosis for this admission?: Yes Plan: Resolved with IV fluids. 12/26/2018-patient came in with acute kidney injury most likely secondary to prerenal causes resolved with IV fluids. Creatinine today is 0.87. 12/27/2018-patient came in with acute kidney injury latest serum creatinine is 0.84. JOEY due to prerenal causes resolved. Admission creatinine is 1.28. Her baseline creatinine is around 0.8. 12/28/2018-patient admitted with acute kidney injury her latest creatinine today is 0.65. Baseline creatinine is around 0.8. Acute kidney injury due to prerenal causes resolved. 12/29/2018-patient admitted with acute kidney injury latest creatinine is 0.65. Acute kidney injury secondary to prerenal causes resolved. 12/30/2018-latest creatinine is 0.65 acute kidney injury due to prerenal causes r esolved. On admission creatinine is 1.28. Baseline creatinine is around 0.8. (3) Fracture of humeral head, closed Qualifiers: Encounter type: initial encounter Laterality: left Qualified Code(s): S42.292A - Other displaced fracture of upper end of left humerus, initial encounter for closed fracture Is this a current diagnosis for this admission?: Yes (4) Hyponatremia Is this a current diagnosis for this admission?: Yes Plan: Improved with IV fluids. 12/26/2018-patient came in with hyponatremia today serum sodium is 139 hyponatremia is resolved. Most likely secondary to poor oral intake. 12/27/2018-serum potassium today is 138. Hyponatremia resolved. 12/28/2018-patient serum sodium is 137 hyponatremia is resolved. 12/29/2018-latest chest serum sodium is 137. Hyponatremia is resolved. 12/30/2018-latest serum sodium is 137 hyponatremia is resolved. 12/31/2018-to request labs tomorrow. Admitted with hyponatremia and was resolved. (5) Dementia Qualifiers: Dementia type: unspecified type Dementia behavioral disturbance: without behavioral disturbance Qualified Code(s): F03.90 - Unspecified dementia without behavioral disturbance Is this a current diagnosis for this admission?: Yes - Time Time Spent with patient: 25-34 minutes Medications reviewed and adjusted accordingly: Yes Anticipated discharge: SNF
[2018-12-31] MEDS: PATIROMER 8.4 GM SUSP PACKET PO SCH (17:03)
[2018-12-31] MEDS: ATORVASTATIN CALCIUM 40 MG TABLET PO SCH (21:25)
[2018-12-31] MEDS: MELATONIN 1 MG TABLET PO SCH (21:25)
[2019-01-01] MEDS: HEPARIN SOD (PORCINE) 5,000 UNIT/ML 1 ML SYRINGE SUBCUT SCH ×2 (05:54→17:35)
[2019-01-01 06:39] LABS: ABSOLUTE BASOPHILS # (AUTO) 0.1 10^3/uL (0.0-0.2); ABSOLUTE EOSINOPHILS # (AUTO) 0.4 10^3/uL (0.0-0.6); ABSOLUTE LYMPHOCYTES (AUTO) 1.5 10^3/uL (0.5-4.7); ABSOLUTE MONOCYTES (AUTO) 0.9 10^3/uL (0.1-1.4); ABSOLUTE NEUT (AUTO) 7.1 10^3/uL (1.7-8.2); BASOPHILS % (AUTO) 0.9 % (0-2); EOSINOPHILS % (AUTO) 4.2 % (0-6); HEMATOCRIT 25.8 % (36.0-47.0); MEAN CORPUSCULAR HEMOGLOBIN 32.6 pg (27.0-33.4); MEAN CORPUSCULAR HGB CONC 34.8 g/dL (32.0-36.0); MEAN CORPUSCULAR VOLUME 94 fl (80-97); MONOCYTES % (AUTO) 9.1 % (3-13); PLATELET COUNT 347 10^3/uL (150-450); RED BLOOD COUNT 2.76 10^6/uL (3.72-5.28); RED CELL DISTRIBUTION WIDTH 15.1 % (11.5-14.0); SEGMENTED NEUTROPHILS % (AUTO) 70.8 % (42-78); TOTAL CELLS COUNTED % (AUTO) 100 %
[2019-01-01 06:58] LABS: ALANINE AMINOTRANSFERASE 38 U/L (9-52); ALBUMIN 2.9 g/dL (3.5-5.0); ALKALINE PHOSPHATASE 113 U/L (38-126); ANION GAP 8 (5-19); ASPARTATE AMINO TRANSFERASE 30 U/L (14-36); BILIRUBIN,DIRECT 0.3 mg/dL (0.0-0.4); BILIRUBIN,TOTAL 0.4 mg/dL (0.2-1.3); BLOOD UREA NITROGEN 19 mg/dL (7-20); CALCIUM 8.8 mg/dL (8.4-10.2); CARBON DIOXIDE 22 mmol/L (22-30); CHLORIDE 109 mmol/L (98-107); GLUCOSE 83 mg/dL (75-110); POTASSIUM 4.9 mmol/L (3.6-5.0); SODIUM 138.7 mmol/L (137-145); TOTAL PROTEIN 5.3 g/dL (6.3-8.2)
[2019-01-01] MEDS: CARVEDILOL 12.5 MG TABLET PO SCH (09:35)
[2019-01-01] MEDS: LACTOBACILLUS ACIDOPHILUS 250 MG TAB PO SCH (09:35)
[2019-01-01] MEDS: DOCUSATE SODIUM 100 MG CAPSULE PO SCH ×2 (09:35→17:35)
[2019-01-01] MEDS: RIVASTIGMINE TARTRATE 1.5 MG CAPSULE PO SCH ×2 (09:35→17:35)
[2019-01-01] MEDS: ASPIRIN 81 MG TABLET, ENT COATED PO SCH (09:36)
[2019-01-01] MEDS: CITALOPRAM HYDROBROMIDE 20 MG TABLET PO SCH (09:36)
[2019-01-01] MEDS: CHOLECALCIFEROL (D3) 1,000 UNIT TABLET PO SCH (09:36)
[2019-01-01] MEDS: FLUTICASONE NASAL SPRAY 50 MCG/SPRY 120 SPRAY/16 GM NAREB SCH (09:36)
[2019-01-01] MEDS: LOSARTAN POTASSIUM 50 MG TABLET PO SCH (09:36)
[2019-01-01] MEDS: OXYCODONE-ACETAMINOPHEN 5-325 MG TABLET PO PRN (09:57)
--- NOTE | 2019-01-01 10:52 | PDOC PROGRESS REPORT ---
Subjective Progress Note for:: 01/01/19 Subjective:: 83 year old female with a past medical history of advanced dementia, depression, hypertension, osteoarthritis, and recurrent urinary tract infection. Patient presented to the emergency room 5 days ago after a fall with scalp hematoma and rib contusion discharged home to return the following day after another fall. She diagnosed with an arm contusion and concussion and discharged on Ultram. She is subsequently had poor pain control, generalized weakness and poor p.o. intake prompting reevaluation the emergency room where a CT chest reveals left humeral fracture and left pleural effusion, labs reveal a 2 unit drop in hemoglobin over 5 days, hyponatremia 128 and hyperkalemia of 6 with peaked T waves. Patient was admitted early this morning. On encounter, daughter is in the bedside. Patient appears comfortable and pain is well controlled with morphine. She is awake and is oriented to person and place. Discussed plan of care for evaluation by physical therapist and possible need for placement due to her recurrent falls. Daughter is amenable to possible placement if needed. Patient's daughter did express that patient has been started by PCP on Bactrim due to her recurrent UTI. 12/24: She appears to be in her baseline mentation but occasionally sundowns from her dementia. She has been very talkative this morning. PT has evaluated patient and has recommended SNF/short term rehab. Agree as patient does have advancing dementia and recurrent falls and has sustained a humeral fracture this time. Will consult discharge planning to initiate placement process. 12/25: No acute event overnight. She is at her baseline. Pain is well controlled. Awaiting for placement. 12/26/[id number]-sijb-old female with history of advanced dementia, depression, h ypertension, osteoarthritis, recurrent UTI admitted for poor oral intake, hyperkalemia, hyponatremia, drop in hemoglobin on the work-up indicates left humeral fracture, left pleural effusion. Patient waiting for the placement. Patient is comfortably in the bed because of advanced dementia unable to communicate properly. No acute events in the last 24 hours, patient is afebrile. 12/27/[id number]-yyke-old female with advanced dementia, hypertension, depression, osteoarthritis, recurrent UTI admitted for poor oral intake, hyponatremia, hyperkalemia she also found to have left humeral fracture and conservative management and left pleural effusion. She is waiting for placement. Afebrile asymptomatic. 12/28/[id number]-gvid-old female admitted for bronchitis, hyperkalemia poor oral intake and hyponatremia found to have a left humeral fracture and x-ray shows left pleural effusion waiting for the placement in my opinion. Afebrile. I spoke to the patient's daughter she said somebody told her she has a right diaphragm paralysis based on the investigations done as an outpatient she wants me to talk to the radiologist about this issue and I did spoke to Dr. Rodas and her recommendation is to repeat chest x-ray two-view today. And Dr. Villaseñor also told me she did not see any obvious right diaphragm paralysis. Patient pulse ox today is 93% on room air. Comfortablly in the sleeping bed. 12/29/[id number]-abqq-old female admitted for hyperkalemia, poor oral intake, hyponatremia and acute bronchitis. Found to have left pleural effusion and a left humeral fracture. 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 Villaseñor and we did 2 view follow-up x-rays there is no obvious right or diaphragmatic heart failure and patient pulse ox is 95% on room air today. Comfortable in the bed because of advanced dementia not able to communicate much. Not in distress. 12/30/[id number]-pklr-old female admitted with acute bronchitis, poor oral intake, hyponatremia, hyperkalemia also found to have a humeral fracture and conservative management left-sided pleural effusion waiting for placement. No acute events in the last 24 hours. On examination comfortably sleeping in the bed. Unable to maintain good conversation because of advanced dementia. Afebrile. 12/31/[id number]-tzya-old female admitted for acute bronchitis/hyponatremia/hyperkalemia hyponatremia and hyperkalemia resolved. Acute bronchitis resolved. Found to have a humeral fracture and left pleural effusion. These are the findings at the time of admission. Pulse ox is 97% room air today waiting for placement. No acute events in the last 24 hours. patient is on Tylenol for pain this morning complained pain is severe was given a Percocet and pain is better tolerated now. 01/01/[id number]-qnhq-old female admitted for acute bronchitis, hyponatremia, hyperkalemia. No acute events in the last 24 hours. Patient is having the hallucinations this morning most likely secondary to advanced dementia. Waiting for placement. Afebrile. Reason For Visit: BRONCHITIS, HYPERKALEMIA, HYPONATREMIA, HUMERAL FX Physical Exam Vital Signs: Temp Pulse Resp BP Pulse Ox 98.3 F 73 16 132/44 H 95 01/01/19 00:00 01/01/19 09:19 01/01/19 09:19 01/01/19 00:00 01/01/19 09:19 Intake & Output 12/31/18 01/01/19 01/02/19 06:59 06:59 06:59 Intake Total 698 665 Output Total 1828 1570 Balance -1127 -905 Weight 71.6 kg 73.2 kg General appearance: PRESENT: mild distress, obese, other - Patient is having hallucinations because of advanced dementia. Head exam: PRESENT: atraumatic Eye exam: PRESENT: PERRLA Mouth exam: PRESENT: moist, tongue midline Neck exam: ABSENT: carotid bruit, JVD, lymphadenopathy, thyromegaly Respiratory exam: PRESENT: clear to auscultation mayte. ABSENT: rales, rhonchi, wheezes Cardiovascular exam: PRESENT: systolic murmur, tachycardia GI/Abdominal exam: PRESENT: normal bowel sounds, soft. ABSENT: distended, guarding, mass, organolmegaly, rebound, tenderness Rectal exam: PRESENT: deferred Extremities exam: PRESENT: full ROM. ABSENT: calf tenderness, clubbing, pedal edema Neurological exam: PRESENT: CN II-XII grossly intact, other - Patient unable to communicate because of advanced dementia and having a hallucinations. Psychiatric exam: PRESENT: other - Patient has advanced dementia having hallucinations she is seeing kids in the room she wants to me tell them leave the room. Results Laboratory Results: 01/01/19 05:28 01/01/19 05:28 01/01/19 01/01/19 05:28 05:28 WBC 10.0 RBC 2.76 L Hgb 9.0 L Hct 25.8 L MCV 94 MCH 32.6 MCHC 34.8 RDW 15.1 H Plt Count 347 Seg Neutrophils % 70.8 Lymphocytes % 15.0 Monocytes % 9.1 Eosinophils % 4.2 Basophils % 0.9 Absolute Neutrophils 7.1 Absolute Lymphocytes 1.5 Absolute Monocytes 0.9 Absolute Eosinophils 0.4 Absolute Basophils 0.1 Sodium 138.7 Potassium 4.9 Chloride 109 H Carbon Dioxide 22 Anion Gap 8 BUN 19 Creatinine 0.68 Est GFR ( Amer) > 60 Est GFR (Non-Af Amer) > 60 Glucose 83 Calcium 8.8 Total Bilirubin 0.4 AST 30 ALT 38 Alkaline Phosphatase 113 Total Protein 5.3 L Albumin 2.9 L 12/23/18 03:00 Troponin I < 0.012 Impressions: Chest X-Ray 12/28/18 00:00 IMPRESSION: Cannot exclude a left lower lobe pneumonia. Assessment and Plan - Diagnosis (1) Hyperkalemia Is this a current diagnosis for this admission?: Yes Plan: Improved. She did get lactulose. Likely from JOEY and Bactrim. Repeat potassium is significantly improved at 5.1. Will add Patiromer. 12/26/2018-serum potassium level is 5.0 today. Presently on Veltassa plan is to continue the present medication and recheck the labs tomorrow. 12/27/2018-patient serum potassium is 4.9 hyperkalemia is resolving. on Veltassa 24.6 g on daily basis. 12/28/2018 patient came in with hyperkalemia today's potassium is 4.8. Presently on Veltassa 24.6 g daily. Plan is to repeat the labs tomorrow. 12/29/2018-patient's serum potassium is 4.8 today. Presently on Veltassa. Plan to recheck the labs tomorrow. 12/30/2018-serum potassium is 4.8 and Veltassa plan is to recheck the labs tomorrow. To continue the present management. 12/31/2018-patient's latest serum potassium is 4.8 stable. Be having the difficulty in lab draws. Try to do the labs again tomorrow. 01/01/2019-patient's latest potassium is 4.9 stable hyperkalemia is resolved. (2) Acute kidney injury Is this a current diagnosis for this admission?: Yes Plan: Resolved with IV fluids. 12/26/2018-patient came in with acute kidney injury most likely secondary to pre renal causes resolved with IV fluids. Creatinine today is 0.87. 12/27/2018-patient came in with acute kidney injury latest serum creatinine is 0.84. JOEY due to prerenal causes resolved. Admission creatinine is 1.28. Her baseline creatinine is around 0.8. 12/28/2018-patient admitted with acute kidney injury her latest creatinine today is 0.65. Baseline creatinine is around 0.8. Acute kidney injury due to prerenal causes resolved. 12/29/2018-patient admitted with acute kidney injury latest creatinine is 0.65. Acute kidney injury secondary to prerenal causes resolved. 12/30/2018-latest creatinine is 0.65 acute kidney injury due to prerenal causes resolved. On admission creatinine is 1.28. Baseline creatinine is around 0.8. 01/01/2019-patient's baseline creatinine is 0.65 and today's creatinine is 0.68 acute kidney injury due to prerenal causes resolved. (3) Fracture of humeral head, closed Qualifiers: Encounter type: initial encounter Laterality: left Qualified Code(s): S42.292A - Other displaced fracture of upper end of left humerus, initial encounter for closed fracture Is this a current diagnosis for this admission?: Yes (4) Hyponatremia Is this a current diagnosis for this admission?: Yes Plan: Improved with IV fluids. 12/26/2018-patient came in with hyponatremia today serum sodium is 139 hyponatremia is resolved. Most likely secondary to poor oral intake. 12/27/2018-serum potassium today is 138. Hyponatremia resolved. 12/28/2018-patient serum sodium is 137 hyponatremia is resolved. 12/29/2018-latest chest serum sodium is 137. Hyponatremia is resolved. 12/30/2018-latest serum sodium is 137 hyponatremia is resolved. 12/31/2018-to request labs tomorrow. Admitted with hyponatremia and was resolved. 01/01/2019-latest serum sodium is 138 within normal range ,hyponatremia is resolved. (5) Dementia Qualifiers: Dementia type: unspecified type Dementia behavioral disturbance: without behavioral disturbance Qualified Code(s): F03.90 - Unspecified dementia without behavioral disturbance Is this a current diagnosis for this admission?: Yes - Time Time Spent with patient: 15-24 minutes Medications reviewed and adjusted accordingly: Yes Anticipated discharge: SNF
[2019-01-01] MEDS: PATIROMER 8.4 GM SUSP PACKET PO SCH (16:07)
[2019-01-02] MEDS: ATORVASTATIN CALCIUM 40 MG TABLET PO SCH ×2 (00:36→00:43)
[2019-01-02] MEDS: CARVEDILOL 12.5 MG TABLET PO SCH ×4 (00:36→23:59)
[2019-01-02] MEDS: MELATONIN 1 MG TABLET PO SCH ×2 (00:36→00:44)
[2019-01-02] MEDS: OXYCODONE-ACETAMINOPHEN 5-325 MG TABLET PO PRN ×2 (06:12→12:50)
[2019-01-02] MEDS: HEPARIN SOD (PORCINE) 5,000 UNIT/ML 1 ML SYRINGE SUBCUT SCH ×2 (06:12→17:40)
[2019-01-02] MEDS: DOCUSATE SODIUM 100 MG CAPSULE PO SCH ×2 (11:06→17:40)
[2019-01-02] MEDS: LOSARTAN POTASSIUM 50 MG TABLET PO SCH (11:06)
[2019-01-02] MEDS: LACTOBACILLUS ACIDOPHILUS 250 MG TAB PO SCH (11:06)
[2019-01-02] MEDS: CITALOPRAM HYDROBROMIDE 20 MG TABLET PO SCH (11:06)
[2019-01-02] MEDS: CHOLECALCIFEROL (D3) 1,000 UNIT TABLET PO SCH (11:06)
[2019-01-02] MEDS: ASPIRIN 81 MG TABLET, ENT COATED PO SCH (11:07)
[2019-01-02] MEDS: RIVASTIGMINE TARTRATE 1.5 MG CAPSULE PO SCH ×2 (11:07→17:40)
[2019-01-02] MEDS: FLUTICASONE NASAL SPRAY 50 MCG/SPRY 120 SPRAY/16 GM NAREB SCH (11:07)
--- NOTE | 2019-01-02 11:41 | PDOC PROGRESS REPORT ---
Subjective Progress Note for:: 01/02/19 Subjective:: 83 year old female with a past medical history of advanced dementia, depression, hypertension, osteoarthritis, and recurrent urinary tract infection. Patient presented to the emergency room 5 days ago after a fall with scalp hematoma and rib contusion discharged home to return the following day after another fall. She diagnosed with an arm contusion and concussion and discharged on Ultram. She is subsequently had poor pain control, generalized weakness and poor p.o. intake prompting reevaluation the emergency room where a CT chest reveals left humeral fracture and left pleural effusion, labs reveal a 2 unit drop in hemoglobin over 5 days, hyponatremia 128 and hyperkalemia of 6 with peaked T waves. Patient was admitted early this morning. On encounter, daughter is in the bedside. Patient appears comfortable and pain is well controlled with morphine. She is awake and is oriented to person and place. Discussed plan of care for evaluation by physical therapist and possible need for placement due to her recurrent falls. Daughter is amenable to possible placement if needed. Patient's daughter did express that patient has been started by PCP on Bactrim due to her recurrent UTI. 12/24: She appears to be in her baseline mentation but occasionally sundowns from her dementia. She has been very talkative this morning. PT has evaluated patient and has recommended SNF/short term rehab. Agree as patient does have advancing dementia and recurrent falls and has sustained a humeral fracture this time. Will consult discharge planning to initiate placement process. 12/25: No acute event overnight. She is at her baseline. Pain is well controlled. Awaiting for placement. 12/26/[id number]-ocrj-old female with history of advanced dementia, depression, h ypertension, osteoarthritis, recurrent UTI admitted for poor oral intake, hyperkalemia, hyponatremia, drop in hemoglobin on the work-up indicates left humeral fracture, left pleural effusion. Patient waiting for the placement. Patient is comfortably in the bed because of advanced dementia unable to communicate properly. No acute events in the last 24 hours, patient is afebrile. 12/27/[id number]-pgwa-old female with advanced dementia, hypertension, depression, osteoarthritis, recurrent UTI admitted for poor oral intake, hyponatremia, hyperkalemia she also found to have left humeral fracture and conservative management and left pleural effusion. She is waiting for placement. Afebrile asymptomatic. 12/28/20189162-58-ykhq-old female admitted for bronchitis, hyperkalemia poor oral intake and hyponatremia found to have a left humeral fracture and x-ray shows left pleural effusion waiting for the placement in my opinion. Afebrile. I spoke to the patient's daughter she said somebody told her she has a right diaphragm paralysis based on the investigations done as an outpatient she wants me to talk to the radiologist about this issue and I did spoke to Dr. Rodas and her recommendation is to repeat chest x-ray two-view today. And Dr. Villaseñor also told me she did not see any obvious right diaphragm paralysis. Patient pulse ox today is 93% on room air. Comfortablly in the sleeping bed. 12/29/[id number]-ozpw-old female admitted for hyperkalemia, poor oral intake, hyponatremia and acute bronchitis. Found to have left pleural effusion and a left humeral fracture. 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 Villaseñor and we did 2 view follow-up x-rays there is no obvious right or diaphragmatic heart failure and patient pulse ox is 95% on room air today. Comfortable in the bed because of advanced dementia not able to communicate much. Not in distress. 12/30/[id number]-euwb-old female admitted with acute bronchitis, poor oral intake, hyponatremia, hyperkalemia also found to have a humeral fracture and conservative management left-sided pleural effusion waiting for placement. No acute events in the last 24 hours. On examination comfortably sleeping in the bed. Unable to maintain good conversation because of advanced dementia. Afebrile. 12/31/[id number]-kbzh-old female admitted for acute bronchitis/hyponatremia/hyperkalemia hyponatremia and hyperkalemia resolved. Acute bronchitis resolved. Found to have a humeral fracture and left pleural effusion. These are the findings at the time of admission. Pulse ox is 97% room air today waiting for placement. No acute events in the last 24 hours. patient is on Tylenol for pain this morning complained pain is severe was given a Percocet and pain is better tolerated now. 01/01/20192588-05-vzfp-old female admitted for acute bronchitis, hyponatremia, hyperkalemia. No acute events in the last 24 hours. Patient is having the hallucinations this morning most likely secondary to advanced dementia. Waiting for placement. Afebrile. 01/02/20190781-32-jaei-old Female admitted with acute bronchitis, hyponatremia, hyperkalemia. Waiting for placement. No acute events. Afebrile. Reason For Visit: BRONCHITIS, HYPERKALEMIA, HYPONATREMIA, HUMERAL FX Physical Exam Vital Signs: Temp Pulse Resp BP Pulse Ox 98.8 F 78 18 117/49 L 96 01/02/19 00:37 01/02/19 08:53 01/02/19 08:53 01/02/19 00:37 01/02/19 08:53 Intake & Output 01/01/19 01/02/19 01/03/19 06:59 06:59 06:59 Intake Total 665 532 Output Total 1570 1275 Balance -905 -743 Weight 73.2 kg 68.4 kg General appearance: PRESENT: no acute distress, cooperative, other - Patient has advanced dementia. Head exam: PRESENT: atraumatic Eye exam: PRESENT: PERRLA Mouth exam: PRESENT: moist, tongue midline Teeth exam: PRESENT: poor dentation Neck exam: ABSENT: carotid bruit, JVD, lymphadenopathy, thyromegaly Respiratory exam: PRESENT: decreased breath sounds Cardiovascular exam: PRESENT: tachycardia GI/Abdominal exam: PRESENT: normal bowel sounds, soft. ABSENT: distended, guarding, mass, organolmegaly, rebound, tenderness Rectal exam: PRESENT: deferred Extremities exam: PRESENT: full ROM. ABSENT: calf tenderness, clubbing, pedal edema Neurological exam: PRESENT: CN II-XII grossly intact, other - And has advanced dementia unable to maintain conversation. No focal neurological deficits. Psychiatric exam: PRESENT: anxious Results Laboratory Results: 01/01/19 05:28 01/01/19 05:28 12/23/18 03:00 Troponin I < 0.012 Impressions: Chest X-Ray 12/28/18 00:00 IMPRESSION: Cannot exclude a left lower lobe pneumonia. Assessment and Plan - Diagnosis (1) Hyperkalemia Is this a current diagnosis for this admission?: Yes Plan: Improved. She did get lactulose. Likely from JOEY and Bactrim. Repeat potassium is significantly improved at 5.1. Will add Patiromer. 12/26/2018-serum potassium level is 5.0 today. Presently on Veltassa plan is to continue the present medication and recheck the labs tomorrow. 12/27/2018-patient serum potassium is 4.9 hyperkalemia is resolving. on Veltassa 24.6 g on daily basis. 12/28/2018 patient came in with hyperkalemia today's potassium is 4.8. Presently on Veltassa 24.6 g daily. Plan is to repeat the labs tomorrow. 12/29/2018-patient's serum potassium is 4.8 today. Presently on Veltassa. Plan to recheck the labs tomorrow. 12/30/2018-serum potassium is 4.8 and Veltassa plan is to recheck the labs tomorrow. To continue the present management. 12/31/2018-patient's latest serum potassium is 4.8 stable. Be having the difficulty in lab draws. Try to do the labs again tomorrow. 01/01/2019-patient's latest potassium is 4.9 stable hyperkalemia is resolved. (2) Acute kidney injury Is this a current diagnosis for this admission?: Yes Plan: Resolved with IV fluids. 12/26/2018-patient came in with acute kidney injury most likely secondary to prerenal causes resolved with IV fluids. Creatinine today is 0.87. 12/27/2018-patient came in with acute kidney injury latest serum creatinine is 0.84. JOEY due to prerenal causes resolved. Admission creatinine is 1.28. Her baseline creatinine is around 0.8. 12/28/2018-patient admitted with acute kidney injury her latest creatinine today is 0.65. Baseline creatinine is around 0.8. Acute kidney injury due to prerenal causes resolved. 12/29/2018-patient admitted with acute kidney injury latest creatinine is 0.65. Acute kidney injury secondary to prerenal causes resolved. 12/30/2018-latest creatinine is 0.65 acute kidney injury due to prerenal causes resolved. On admission creatinine is 1.28. Baseline creatinine is around 0.8. 01/01/2019-patient's baseline creatinine is 0.65 and today's creatinine is 0.68 acute kidney injury due to prerenal causes resolved. 01/02/2019-latest creatinine is 0.68. Acute kidney injury is resolved. (3) Fracture of humeral head, closed Qualifiers: Encounter type: initial encounter Laterality: left Qualified Code(s): S42.292A - Other displaced fracture of upper end of left humerus, initial encounter for closed fracture Is this a current diagnosis for this admission?: Yes (4) Hyponatremia Is this a current diagnosis for this admission?: Yes Plan: Improved with IV fluids. 12/26/2018-patient came in with hyponatremia today serum sodium is 139 hyponatremia is resolved. Most likely secondary to poor oral intake. 12/27/2018-serum potassium today is 138. Hyponatremia resolved. 12/28/2018-patient serum sodium is 137 hyponatremia is resolved. 12/29/2018-latest chest serum sodium is 137. Hyponatremia is resolved. 12/30/2018-latest serum sodium is 137 hyponatremia is resolved. 12/31/2018-to request labs tomorrow. Admitted with hyponatremia and was resolved. 01/01/2019-latest serum sodium is 138 within normal range ,hyponatremia is resolved. 01/02/2019-latest serum sodium is 138. Hyponatremia is resolved. (5) Dementia Qualifiers: Dementia type: unspecified type Dementia behavioral disturbance: without behavioral disturbance Qualified Code(s): F03.90 - Unspecified dementia without behavioral disturbance Is this a current diagnosis for this admission?: Yes Plan: Poor candidate for aggressive measures, concern for intractable pain requiring narcotics with sedation further complicating functional state. Anticipate poor outcome despite aggressive measures, consider hospice consult if not improving in 48 hours. 12/27/2018-patient has history of advanced dementia. Plan is to continue home medications. 01/02/2019-patient has advanced dementia. Presently Exelon and memantine. plan Is to continue the present management. - Time Time Spent with patient: 15-24 minutes Medications reviewed and adjusted accordingly: Yes Anticipated discharge: SNF
[2019-01-02] MEDS: PATIROMER 8.4 GM SUSP PACKET PO SCH (16:29)
[2019-01-02] MEDS ORDERED: NORMAL SALINE 1000 ML 1,000 ML IV ONE (21:15)
[2019-01-03] MEDS: HEPARIN SOD (PORCINE) 5,000 UNIT/ML 1 ML SYRINGE SUBCUT SCH ×2 (06:22→17:08)
[2019-01-03] MEDS: ACETAMINOPHEN 325 MG TABLET PO PRN (06:25)
[2019-01-03] MEDS: LACTOBACILLUS ACIDOPHILUS 250 MG TAB PO SCH (10:13)
[2019-01-03] MEDS: LOSARTAN POTASSIUM 50 MG TABLET PO SCH (10:13)
[2019-01-03] MEDS: DOCUSATE SODIUM 100 MG CAPSULE PO SCH ×2 (10:13→17:08)
[2019-01-03] MEDS: CARVEDILOL 12.5 MG TABLET PO SCH ×2 (10:13→21:22)
[2019-01-03] MEDS: CHOLECALCIFEROL (D3) 1,000 UNIT TABLET PO SCH (10:13)
[2019-01-03] MEDS: ASPIRIN 81 MG TABLET, ENT COATED PO SCH (10:13)
[2019-01-03] MEDS: CITALOPRAM HYDROBROMIDE 20 MG TABLET PO SCH (10:13)
[2019-01-03] MEDS: FLUTICASONE NASAL SPRAY 50 MCG/SPRY 120 SPRAY/16 GM NAREB SCH (10:14)
[2019-01-03] MEDS ORDERED: OXYCODONE-ACETAMINOPHEN 5-325 MG TABLET PO PRN (11:11)
[2019-01-03] MEDS: MEGESTROL ACETATE SUSP 400 MG/10 ML UDCUP PO SCH (13:29)
[2019-01-03] MEDS: MAG HYDROX/AL HYDROX/SIMETH SUSP 30 ML UDCUP PO PRN (13:30)
[2019-01-03] MEDS: PATIROMER 8.4 GM SUSP PACKET PO SCH (17:08)
--- NOTE | 2019-01-03 19:43 | PDOC PROGRESS REPORT ---
Subjective Progress Note for:: 01/03/19 Subjective:: 83 year old female with a past medical history of advanced dementia, depression, hypertension, osteoarthritis, and recurrent urinary tract infection. Patient presented to the emergency room 5 days ago after a fall with scalp hematoma and rib contusion discharged home to return the following day after another fall. She diagnosed with an arm contusion and concussion and discharged on Ultram. She is subsequently had poor pain control, generalized weakness and poor p.o. intake prompting reevaluation the emergency room where a CT chest reveals left humeral fracture and left pleural effusion, labs reveal a 2 unit drop in hemoglobin over 5 days, hyponatremia 128 and hyperkalemia of 6 with peaked T waves. 01/03/2019. No acute events overnight. Patient still complaining of left upper extremity pain and having a low appetite. Patient denies any fever, chills, n ausea, vomiting, diarrhea, constipation or any urinary symptoms. Patient has a left humeral fracture as per CT however has not been evaluated by Ortho yet. Once patient is evaluated by Ortho will transfer to rehab. Reason For Visit: BRONCHITIS, HYPERKALEMIA, HYPONATREMIA, HUMERAL FX Physical Exam Vital Signs: Temp Pulse Resp BP Pulse Ox 98.9 F 73 20 120/59 L 96 01/03/19 16:00 01/03/19 16:00 01/03/19 16:00 01/03/19 16:00 01/03/19 16:00 Intake & Output 01/02/19 01/03/19 01/04/19 06:59 06:59 06:59 Intake Total 532 1798 477 Output Total 1275 1375 450 Balance -743 423 27 Weight 68.4 kg 69.6 kg General appearance: PRESENT: no acute distress, well-developed, well-nourished Head exam: PRESENT: atraumatic, normocephalic Eye exam: PRESENT: conjunctiva pink, EOMI, PERRLA. ABSENT: scleral icterus Ear exam: PRESENT: normal external ear exam Mouth exam: PRESENT: moist, tongue midline Neck exam: PRESENT: other - Left neck bruise.. ABSENT: carotid bruit, JVD, lymphadenopathy, thyromegaly Respiratory exam: PRESENT: clear to auscultation mayte. ABSENT: rales, rhonchi, wheezes Cardiovascular exam: PRESENT: RRR. ABSENT: diastolic murmur, rubs, systolic murmur Pulses: PRESENT: normal dorsalis pedis pul Vascular exam: PRESENT: normal capillary refill GI/Abdominal exam: PRESENT: normal bowel sounds, soft. ABSENT: distended, guarding, mass, organolmegaly, rebound, tenderness Rectal exam: PRESENT: deferred Extremities exam: PRESENT: tenderness - Left upper extremity and shoulder.. ABSENT: calf tenderness, clubbing, pedal edema Musculoskeletal exam: PRESENT: tenderness - Left shoulder limited range of nicole on due to pain. Neurovascularly intact. Neurological exam: PRESENT: alert, awake, oriented to person, oriented to place, CN II-XII grossly intact. ABSENT: motor sensory deficit Psychiatric exam: PRESENT: appropriate affect, normal mood. ABSENT: homicidal ideation, suicidal ideation Skin exam: PRESENT: dry, intact, warm. ABSENT: cyanosis, rash Results Laboratory Results: 01/01/19 05:28 01/01/19 05:28 12/23/18 03:00 Troponin I < 0.012 Impressions: Chest X-Ray 12/28/18 00:00 IMPRESSION: Cannot exclude a left lower lobe pneumonia. Assessment and Plan - Diagnosis (1) Hypertension Qualifiers: Hypertension type: essential hypertension Qualified Code(s): I10 - Essential (primary) hypertension Is this a current diagnosis for this admission?: No Plan: Normotensive. Continue current meds. Adjust meds as needed. Outpatient PCP follow-up. 12/03/2018: SBP 60181, T-max 99.5, pulse 80s, RR 16, FiO2 98% RA. (2) Fracture of humeral head, closed Qualifiers: Encounter type: initial encounter Laterality: left Qualified Code(s): S42.292A - Other displaced fracture of upper end of left humerus, initial encounter for closed fracture Is this a current diagnosis for this admission?: Yes Plan: Continue supportive measures. Has been consulted pending final recommendations. (3) Hyperkalemia Is this a current diagnosis for this admission?: Yes Plan: Resolved. Likely due to JOEY. 12/03/2018: sodium 137.1, potassium 4.8, bicarb 21, creatinine 0.65. (4) Hyponatremia Is this a current diagnosis for this admission?: Yes Plan: Resolved. 12/03/2018: Sodium 137.1, potassium 4.8, bicarb 21, creatinine 0.65. (5) Dementia Qualifiers: Dementia type: unspecified type Dementia behavioral disturbance: without behavioral disturbance Qualified Code(s): F03.90 - Unspecified dementia without behavioral disturbance Is this a current diagnosis for this admission?: Yes Plan: Continue supportive measures. Restart home meds. Fall precautions. (6) Anemia Is this a current diagnosis for this admission?: Yes (7) Contusion of rib on left side Qualifiers: Encounter type: initial encounter Qualified Code(s): S20.212A - Contusion of left front wall of thorax, initial encounter Is this a current diagnosis for this admission?: Yes Plan: Secondary to recurrent fall. Continue supportive measures. Monitor vitals.
[2019-01-03] MEDS: MELATONIN 1 MG TABLET PO SCH ×2 (21:22)
[2019-01-03] MEDS: ATORVASTATIN CALCIUM 40 MG TABLET PO SCH ×2 (21:22)
[2019-01-04] MEDS: HEPARIN SOD (PORCINE) 5,000 UNIT/ML 1 ML SYRINGE SUBCUT SCH ×2 (05:05→18:44)
[2019-01-04] MEDS: FLUTICASONE NASAL SPRAY 50 MCG/SPRY 120 SPRAY/16 GM NAREB SCH (10:41)
[2019-01-04] MEDS: MEGESTROL ACETATE SUSP 400 MG/10 ML UDCUP PO SCH (10:41)
[2019-01-04] MEDS: LACTOBACILLUS ACIDOPHILUS 250 MG TAB PO SCH (10:42)
[2019-01-04] MEDS: CARVEDILOL 12.5 MG TABLET PO SCH ×2 (10:42→22:05)
[2019-01-04] MEDS: ASPIRIN 81 MG TABLET, ENT COATED PO SCH (10:42)
[2019-01-04] MEDS: CITALOPRAM HYDROBROMIDE 20 MG TABLET PO SCH (10:43)
[2019-01-04] MEDS: CHOLECALCIFEROL (D3) 1,000 UNIT TABLET PO SCH (10:44)
[2019-01-04] MEDS: LOSARTAN POTASSIUM 50 MG TABLET PO SCH (10:44)
[2019-01-04] MEDS: DOCUSATE SODIUM 100 MG CAPSULE PO SCH ×2 (10:44→18:44)
--- NOTE | 2019-01-04 14:35 | CONSULTATION REPORT E ---
Consultation Report NAME: ERIK HERNANDEZ : 1935 AGE: 83Y DATE: 428 A CONSULTING PHYSICIAN: Dr. Amaya REASON FOR CONSULTATION: Left proximal humerus fracture. HISTORY OF PRESENT ILLNESS: The patient is a pleasant 83-year-old woman with advanced dementia. She initially presented to the emergency department on 12/23/2018 following a fall. Was discharged and then readmitted due to pain, weakness, pleural effusion, and a drop in hemoglobin. CAT scan obtained at the time demonstrated a fracture of the left proximal humerus. PAST MEDICAL HISTORY: 1. Dementia. 2. Depression. 3. Hypertension. PAST SURGICAL HISTORY: Prior hip replacement. ADMISSION MEDICATIONS: Reviewed in their entirety. ALLERGIES: ALLUPURINOL. SOCIAL HISTORY: She lives with her family. Denies use of alcohol or tobacco. PHYSICAL EXAMINATION: GENERAL: She is a pleasant cooperative woman in no acute distress. She is alert. HEENT: Normocephalic, atraumatic. Extraocular movements intact. NECK: Supple with full movement without discomfort. EXTREMITIES: Examination of the left arm, there is a resolving hematoma in the left axilla. Examination of the proximal humerus, there is no significant discomfort with gentle internal or external rotation. Upon internally and externally rotating the arm the patient complains just as frequently when touched on the hand or on the elbow. DIAGNOSTIC DATA: CT scan of the chest independently reviewed dated 12/23/2018 demonstrates what appears to be an acute on chronic fracture of the left proximal humerus with significant degenerative arthritis of the glenohumeral joint. IMPRESSION: Left acute on chronic fracture of the proximal humerus. RECOMMENDATIONS: I have gone ahead and ordered plain films of the left shoulder. Unless these films show something which is unexpected, I would recommend active range of motion of the shoulder by the patient as tolerated given that there does appear to be at least some healing calcification about the proximal humerus, which would indicate a good deal of stability. Given the already advanced nature of the glenohumeral arthritis, I would not recommend specific physical or occupational therapy for range of motion of the shoulder as this will most likely just increase her discomfort. I would recommend that she, again, use the shoulder as tolerated for any activity including weightbearing. Radiographs have been ordered. I will review them when complete and change these recommendations if appropriate. DICTATING PHYSICIAN: JOBY REID M.D. [id number] PHY#: [id number] ID: [id number] JOB#: [id number] ACCT: [id number] cc:JOBY REID M.D. >
--- NOTE | 2019-01-04 15:33 | RADIOLOGY REPORT (SQ) ---
EXAM DESCRIPTION: SHOULDER LEFT 2 OR MORE VIEWS COMPLETED DATE/TIME: 01/04/2019 3:16 pm REASON FOR STUDY: left shoulder fracture COMPARISON: None. NUMBER OF VIEWS: Three views. TECHNIQUE: Internal rotation, external rotation, and Y view images acquired of the left shoulder. LIMITATIONS: None. FINDINGS: MINERALIZATION: Normal. BONES: Irregular mineralization of the humeral head and glenoid. JOINTS: Likely glenohumeral degenerative joint disease. VISUALIZED LUNGS AND RIBS: No pneumothorax. No rib fracture. SOFT TISSUES: No radiopaque foreign body. OTHER: No other significant finding. IMPRESSION: The glenohumeral degenerative joint disease. No definite humeral fracture. TECHNICAL DOCUMENTATION: JOB ID: [id number] [employer]- All Rights Reserved Reading location - IP/workstation name: [email or web address]
--- NOTE | 2019-01-04 17:51 | PDOC PROGRESS REPORT ---
Subjective Progress Note for:: 01/04/19 Subjective:: 83 year old female with a past medical history of advanced dementia, depression, hypertension, osteoarthritis, and recurrent urinary tract infection. Patient presented to the emergency room 5 days ago after a fall with scalp hematoma and rib contusion discharged home to return the following day after another fall. She diagnosed with an arm contusion and concussion and discharged on Ultram. She is subsequently had poor pain control, generalized weakness and poor p.o. intake prompting reevaluation the emergency room where a CT chest reveals left humeral fracture and left pleural effusion, labs reveal a 2 unit drop in hemoglobin over 5 days, hyponatremia 128 and hyperkalemia of 6 with peaked T waves. 01/03/2019. No acute events overnight. Patient still complaining of left upper extremity pain and having a low appetite. Patient denies any fever, chills, n ausea, vomiting, diarrhea, constipation or any urinary symptoms. Patient has a left humeral fracture as per CT however has not been evaluated by Ortho yet. Once patient is evaluated by Ortho will transfer to rehab. 01/04/2019. No acute events overnight. Patient still complaining of left buttock pain and limited range of motion due to pain. Diet has improved mildly. Patient prefers to be given fruits and vegetable. Dave to be transferred to rehab however pending final recommendation from Ortho for her left humeral fracture. Reason For Visit: BRONCHITIS, HYPERKALEMIA, HYPONATREMIA, HUMERAL FX Physical Exam Vital Signs: Temp Pulse Resp BP Pulse Ox 99.5 F 84 24 H 108/43 L 98 01/04/19 11:50 01/04/19 11:50 01/04/19 11:50 01/04/19 11:50 01/04/19 11:50 Intake & Output 01/03/19 01/04/19 01/05/19 06:59 06:59 06:59 Intake Total 1798 977 266 Output Total 1375 450 200 Balance 423 527 66 Weight 69.6 kg 68.2 kg General appearance: PRESENT: no acute distress, well-developed, well-nourished Head exam: PRESENT: other - Left neck bruise. Neck exam: ABSENT: carotid bruit, JVD, lymphadenopathy, thyromegaly Cardiovascular exam: PRESENT: RRR. ABSENT: diastolic murmur, rubs, systolic murmur GI/Abdominal exam: PRESENT: normal bowel sounds, soft. ABSENT: distended, guarding, mass, organolmegaly, rebound, tenderness Musculoskeletal exam: PRESENT: other - Left shoulder limited range of motion neurovascularly intact. Neurological exam: PRESENT: alert, altered, awake, oriented to person, oriented to place, CN II-XII grossly intact Results Laboratory Results: 01/01/19 05:28 01/01/19 05:28 12/23/18 03:00 Troponin I < 0.012 Impressions: Chest X-Ray 12/28/18 00:00 IMPRESSION: Cannot exclude a left lower lobe pneumonia. Shoulder X-Ray 01/04/19 00:00 IMPRESSION: The glenohumeral degenerative joint disease. No definite humeral fracture. Assessment and Plan - Diagnosis (1) Hyperkalemia Is this a current diagnosis for this admission?: Yes Plan: Resolved. Likely due to JOEY. 12/03/2018: sodium 137.1, potassium 4.8, bicarb 21, creatinine 0.65. (2) Acute kidney injury Is this a current diagnosis for this admission?: Yes Plan: Lele pre-renal. Resolved. (3) Fracture of humeral head, closed Qualifiers: Encounter type: initial encounter Laterality: left Qualified Code(s): S42.292A - Other displaced fracture of upper end of left humerus, initial encounter for closed fracture Is this a current diagnosis for this admission?: Yes Plan: Continue supportive measures. Has been consulted pending final recommendations. (4) Hypertension Qualifiers: Hypertension type: essential hypertension Qualified Code(s): I10 - Essential (primary) hypertension Is this a current diagnosis for this admission?: No Plan: Normotensive. Continue current meds. Adjust meds as needed. Outpatient PCP follow-up. 12/03/2018: SBP 17296, T-max 99.5, pulse 80s, RR 16, FiO2 98% RA. (5) Hyponatremia Is this a current diagnosis for this admission?: Yes Plan: Resolved. 12/03/2018: Sodium 137.1, potassium 4.8, bicarb 21, creatinine 0.65. (6) Dementia Qualifiers: Dementia type: unspecified type Dementia behavioral disturbance: without behavioral disturbance Qualified Code(s): F03.90 - Unspecified dementia without behavioral disturbance Is this a current diagnosis for this admission?: Yes Plan: Continue supportive measures. Restart home meds. Fall precautions. (7) Anemia Is this a current diagnosis for this admission?: Yes (8) Contusion of rib on left side Qualifiers: Encounter type: initial encounter Qualified Code(s): S20.212A - Contusion of left front wall of thorax, initial encounter Is this a current diagnosis for this admission?: Yes Plan: Secondary to recurrent fall. Continue supportive measures. Monitor vitals.
[2019-01-04] MEDS: MELATONIN 1 MG TABLET PO SCH (22:05)
[2019-01-04] MEDS: ATORVASTATIN CALCIUM 40 MG TABLET PO SCH (22:05)
[2019-01-05] MEDS: HEPARIN SOD (PORCINE) 5,000 UNIT/ML 1 ML SYRINGE SUBCUT SCH ×2 (05:53→18:10)
[2019-01-05] MEDS: ACETAMINOPHEN 325 MG TABLET PO PRN (05:53)
[2019-01-05] MEDS: DOCUSATE SODIUM 100 MG CAPSULE PO SCH ×2 (12:18→18:09)
[2019-01-05] MEDS: CARVEDILOL 12.5 MG TABLET PO SCH (12:18)
[2019-01-05] MEDS: LOSARTAN POTASSIUM 50 MG TABLET PO SCH (12:19)
[2019-01-05] MEDS: ASPIRIN 81 MG TABLET, ENT COATED PO SCH (12:23)
[2019-01-05] MEDS: CITALOPRAM HYDROBROMIDE 20 MG TABLET PO SCH (12:23)
[2019-01-05] MEDS: LACTOBACILLUS ACIDOPHILUS 250 MG TAB PO SCH (12:23)
[2019-01-05] MEDS: CHOLECALCIFEROL (D3) 1,000 UNIT TABLET PO SCH (12:23)
[2019-01-05] MEDS: FLUTICASONE NASAL SPRAY 50 MCG/SPRY 120 SPRAY/16 GM NAREB SCH (12:24)
[2019-01-05] MEDS: MEGESTROL ACETATE SUSP 400 MG/10 ML UDCUP PO SCH (12:24)
--- NOTE | 2019-01-05 15:20 | PDOC TRANSFER SUMMARY ---
General Admission Date/PCP: 12/23/18 05:15 [facility] Transfer Date: 01/05/19 Resuscitation Status: Full Code - Transfer Diagnosis (1) Hyperkalemia Is this a current diagnosis for this admission?: Yes (2) Acute kidney injury Is this a current diagnosis for this admission?: Yes (3) Hypertension Is this a current diagnosis for this admission?: No (4) Fracture of humeral head, closed Is this a current diagnosis for this admission?: Yes (5) Hyponatremia Is this a current diagnosis for this admission?: Yes (6) Dementia Is this a current diagnosis for this admission?: Yes (7) Anemia Is this a current diagnosis for this admission?: Yes (8) Contusion of rib on left side Is this a current diagnosis for this admission?: Yes - Transfer Medications Home Medications: Carvedilol [Coreg 12.5 mg Tablet] 12.5 mg PO Q12 02/02/18 Cholecalciferol (Vitamin D3) [Vitamin D3 1000 Unit Tablet] 2,000 unit PO DAILY 02/02/18 Citalopram Hydrobromide [Celexa 10 mg Tablet] 10 mg PO DAILY 02/02/18 Cyanocobalamin (Vitamin B-12) [Vitamin B-12 1000 mcg Tablet] 1,000 mcg PO DAILY 02/02/18 Fluticasone Propionate [Flonase Nasal [place] 50 Mcg/[place] 16 gm] 1 spray NAREB DAILY 02/02/18 Lactobacillus Acidophilus [Acidophilus] 1 tab PO DAILY 02/02/18 Memantine HCl [Memantine HCl ER] 28 mg PO DAILY 02/02/18 Methyl Salicylate/Menthol [Salonpas Patch] 1 each TP PRN PRN 02/02/18 Rosuvastatin Calcium [Crestor 20 mg Tablet] 20 mg PO QHS 02/02/18 Acetaminophen/Diphenhydramine [Tylenol Pm Ex-Strength Caplet] 1 each PO QHS 12/23/18 Aspirin [Ecotrin 81 mg EC Tablet] 81 mg PO DAILY 12/23/18 Telmisartan [Micardis 40 mg Tablet] 40 mg PO DAILY 12/23/18 Transfer Medications: Current Medications Acetaminophen (Tylenol 325 Mg Tablet) 650 mg PO Q6HP PRN PRN Reason: FOR PAIN OR TEMP Stop: 01/22/19 04:53 Last Admin: 01/05/19 05:53 Dose: 650 mg Documented by: Al Hydrox/Mg Hydrox/Simethicone (Maalox Plus Susp 30 Udcup) 30 ml PO Q6HP PRN PRN Reason: HEARTBURN Stop: 01/22/19 04:55 Last Admin: 01/03/19 13:30 Dose: 30 ml Documented by: Albuterol/Ipratropium (Duoneb 3 Ml Ampul) 3 ml NEB [id number] PRN PRN Reason: SHORTNESS OF BREATH Stop: 01/22/19 04:55 Aspirin (Ecotrin 81 Mg Ec Tablet) 81 mg PO DAILY HANY Stop: 01/25/19 09:59 Last Admin: 01/05/19 12:23 Dose: 81 mg Documented by: Atorvastatin Calcium (Lipitor 40 Mg Tablet) 40 mg PO QHS HANY Stop: 01/22/19 21:59 Last Admin: 01/04/19 22:05 Dose: 40 mg Documented by: Carvedilol (Coreg 12.5 Mg Tablet) 12.5 mg PO Q12 HANY Stop: 01/22/19 09:59 Last Admin: 01/05/19 12:18 Dose: Not Given Documented by: Cholecalciferol (Vitamin D3 1000 Unit Tablet) 2,000 unit PO DAILY HANY Stop: 01/22/19 09:59 Last Admin: 01/05/19 12:23 Dose: 2,000 unit Documented by: Citalopram Hydrobromide (Celexa 20 Mg Tablet) 10 mg PO DAILY HANY Stop: 01/22/19 09:59 Last Admin: 01/05/19 12:23 Dose: 10 mg Documented by: Docusate Sodium (Colace 100 Mg Capsule) 100 mg PO BID HANY Stop: 01/22/19 17:59 Last Admin: 01/05/19 12:18 Dose: Not Given Documented by: Fluticasone Propionate (Flonase Nasal [place] 50 Mcg/[place] 16 Gm) 1 spray NAREB DAILY HANY Stop: 01/22/19 09:59 Last Admin: 01/05/19 12:24 Dose: 1 spr Documented by: Heparin Sodium (Porcine) (Heparin Inj 5,000 Units/Ml 1 Ml Syringe) 5,000 unit SUBCUT Q12A HANY Stop: 01/24/19 17:59 Last Admin: 01/05/19 05:53 Dose: 5,000 unit Documented by: Hydralazine HCl (Apresoline Inj/Pf 20 Mg/1 Ml Sdv) 10 mg IV Q6HP PRN PRN Reason: Sbp>160 Stop: 01/22/19 04:53 Lactobacillus Acidophilus (Bacid 250 Mg Tablet) 250 mg PO DAILY HANY Stop: 01/25/19 09:59 Last Admin: 01/05/19 12:23 Dose: 250 mg Documented by: Losartan Potassium (Cozaar 50 Mg Tablet) 50 mg PO DAILY HANY Stop: 01/25/19 09:59 Last Admin: 01/05/19 12:19 Dose: Not Given Documented by: Megestrol Acetate (Megace Sarah 400 Mg/10 Ml Udcup) 400 mg PO DAILY HANY Stop: 02/02/19 12:59 Last Admin: 01/05/19 12:24 Dose: 400 mg Documented by: Melatonin (Melatonin 1 Mg Tablet) 1 mg PO QHS HANY Stop: 01/28/19 21:59 Last Admin: 01/04/19 22:05 Dose: 1 mg Documented by: Oxycodone/Acetaminophen (Percocet 5-325 Mg Tablet) 1 tab PO Q6HP PRN PRN Reason: FOR PAIN SCALE 1-3 Stop: 01/10/19 11:10 Last Admin: 01/03/19 21:22 Dose: 1 tab Documented by: Patient Own Medication (Memantine Hcl [Memantine Hcl Er]) 28 mg PO .DAILY [facility] Stop: 01/25/19 09:59 - Allergies Allergies/Adverse Reactions: alginate dressing Allergy (Verified 12/23/18 03:40) allopurinol Allergy (Verified 12/23/18 03:40) Hospital Course Hospital Course: 83 year old female with a past medical history of advanced dementia, depression, hypertension, osteoarthritis, and recurrent urinary tract infection. Patient presented to the emergency room 5 days ago after a fall with scalp hematoma and rib contusion discharged home to return the following day after another fall. She diagnosed with an arm contusion and concussion and discharged on Ultram. She is subsequently had poor pain control, generalized weakness and poor p.o. intake prompting reevaluation the emergency room where a CT chest reveals left humeral fracture and left pleural effusion, labs reveal a 2 unit drop in hemoglobin over 5 days, hyponatremia 128 and hyperkalemia of 6 with peaked T waves. 01/03/2019. No acute events overnight. Patient still complaining of left upper extremity pain and having a low appetite. Patient denies any fever, chills, nausea, vomiting, diarrhea, constipation or any urinary symptoms. Patient has a left humeral fracture as per CT however has not been evaluated by Ortho yet. Once patient is evaluated by Ortho will transfer to rehab. 01/04/2019. No acute events overnight. Patient still complaining of left buttock pain and limited range of motion due to pain. Diet has improved mildly. Nitin t prefers to be given fruits and vegetable. Dave to be transferred to rehab however pending final recommendation from Ortho for her left humeral fracture. (1) Hyperkalemia Resolved. Likely due to JOEY. 12/03/2018: sodium 137.1, potassium 4.8, bicarb 21, creatinine 0.65. (2) Acute kidney injury Likley pre-renal. Resolved. (3) Fracture of humeral head, closed Continue supportive measures. Ortho was consulted no surgical interventions recomended and recommendations are as follow. Continue active ROM and weight bearing as tolerated by Pt. Does not recommend any specific PT/OT as this may aggravate and cause discomfort to pt. No Immobilization recommended at this point. (4) Hypertension Normotensive. Continue current meds. Adjust meds as needed. Outpatient PCP follow-up. 12/03/2018: SBP 46278, T-max 99.5, pulse 80s, RR 16, FiO2 98% RA. (5) Hyponatremia Resolved. 12/03/2018: Sodium 137.1, potassium 4.8, bicarb 21, creatinine 0.65. (6) Dementia Continue supportive measures. Restart home meds. Fall precautions. (7) Anemia Chronic. As per my conversation pt is having irregular vaginal bleeds once a while for which she has been extensively worked up by OBGYN as outpt and no cause has been identitifed. Serum Iron 25. Denies any external sources of bleeding except for above as per daughter. Will start on Ferrous Sulfate. (8) Contusion of rib on left side Secondary to recurrent fall. Continue supportive measures. Monitor vitals. Physical Exam Vital Signs: Temp Pulse Resp BP Pulse Ox 97.9 F 66 20 109/65 97 01/05/19 12:00 01/05/19 12:00 01/05/19 12:00 01/05/19 12:00 01/05/19 12:00 Intake & Output 01/04/19 01/05/19 01/06/19 06:59 06:59 06:59 Intake Total 977 266 Output Total 450 200 Balance 527 66 Weight 68.2 kg 68.8 kg General appearance: PRESENT: no acute distress, well-developed, well-nourished Head exam: PRESENT: atraumatic, normocephalic, other - Left neck bruise Neck exam: ABSENT: carotid bruit, JVD, lymphadenopathy, thyromegaly Respiratory exam: PRESENT: clear to auscultation mayte. ABSENT: rales, rhonchi, wheezes Cardiovascular exam: PRESENT: RRR. ABSENT: diastolic murmur, rubs, systolic murmur GI/Abdominal exam: PRESENT: normal bowel sounds, soft. ABSENT: distended, guarding, mass, organolmegaly, rebound, tenderness Extremities exam: PRESENT: full ROM, other - Lt Shoulder LROM due to pain. NV intact. ABSENT: calf tenderness, clubbing, pedal edema Neurological exam: PRESENT: alert, altered, awake, oriented to person, CN II-XII grossly intact, motor sensory deficit Results Laboratory Results: 01/01/19 05:28 01/01/19 05:28 12/23/18 03:00 Troponin I < 0.012 Impressions: Chest X-Ray 12/28/18 00:00 IMPRESSION: Cannot exclude a left lower lobe pneumonia. Shoulder X-Ray 01/04/19 00:00 IMPRESSION: The glenohumeral degenerative joint disease. No definite humeral fracture.
--- NOTE | 2019-01-05 16:05 | Progress Note ---
Provider Note Provider Note: ERIK HERNANDEZ Age:83 1935 Room 428 Acct. # [id number] [facility] Rec # [id number] Admitting Provider:RIO ANN MD Attending Provider:RIO ANN MD Admission Date:12/23/18 05:15 Progress Note 01/05/2019 Left shoulder radiographs ordered and reviewed. Impression: L shoulder with satisfactory alignment. Patient may use shoulder as tolerated without restrictions. Plan: Oupatient followup in 6 weeks if patient is symptomatic. Bayron Chow MD
[2019-01-05 20:01] VITALS: BP 133/67
== END 2019-01-05 20:09 | DRG 683 ==
LOC: ER 01:10 → EH 05:15 → 4S 06:30
PROVIDERS: ADMIT Internal Medicine; ATTEND Internal Medicine
DX: N17.9 Acute kidney failure, unspecified (principal); S42.292A Other displaced fracture of upper end of left humerus, initial encounter for closed fracture; J90 Pleural effusion, not elsewhere classified; E87.1 Hypo-osmolality and hyponatremia; E87.2 Acidosis; E87.5 Hyperkalemia; E86.0 Dehydration; J20.9 Acute bronchitis, unspecified; I10 Essential (primary) hypertension; S20.212A Contusion of left front wall of thorax, initial encounter; F03.90 Unspecified dementia, unspecified severity, without behavioral disturbance, psychotic disturbance, mood disturbance, and anxiety; D64.9 Anemia, unspecified; R29.6 Repeated falls; F32.9 Major depressive disorder, single episode, unspecified; M19.90 Unspecified osteoarthritis, unspecified site; W19.XXXA Unspecified fall, initial encounter; Z87.440 Personal history of urinary (tract) infections; Z79.82 Long term (current) use of aspirin; Z79.899 Other long term (current) drug therapy; Z88.8 Allergy status to other drugs, medicaments and biological substances
CPT/HCPCS: 36415; 71046; 71250; 80048; 80053; 81001; 83540; 83735; 84484; 85025; 93005; 93010; 94640; 94667; 94668; 94799; 99285; J1644; J2270; J3490; J7030; J7040; J7620; S0119